=== PATIENT | male | born 1940 | race Caucasian/White ===

== ENCOUNTER 2023-12-01 16:43 | Inpatient (IN) | payer OTHER, SELFPAY ==
[2023-12-01] VITALS (28 sets, daily range): BP systolic 75–136; BP diastolic 44–98; BMI 21.9
[2023-12-01] MEDS: TYLENOL/FEVERALL 650 MG RECTAL (12:46)
--- NOTE | 2023-12-01 12:52 | ED.GENMED ---
History of Present Illness
General
Chief Complaint: Fever
Source: patient
Exam Limitations: none
Time Seen by Provider: 12/01/23 12:38
Nursing documentation reviewed up to this point in time: agreed with
Travel History
Have you had any contact with someone who has COVID-19?: No
Do you have any symptoms of coronavirus? Fever > 100 degrees, chills, cough, shortness of breath, sore throat, loss of taste or smell, muscle aches, or headache?: No
History of Present Illness
History of Present Illness:
Patient with history of dementia, presents to ED from senior care secondary to decreased oxygen level noted by staff after vomiting episode this afternoon. Per paramedics, patient's initial pulse ox was noted to be in 60s with increased heart
rate. Patient does not offer any additional information. Patient does state that he 'feels awful'
Review of Systems
Review of Systems
Unable to obtain full review of systems at this time due to: dementia
All Other Systems: Not applicable
Phy Exam
Physical Exam
Physical Exam:
Physical Exam
General: no apparent distress, not acutely ill. febrile. tachycardic.
Head: nc/at.
Neck: supple. no meningeal signs.
Heart: irregularly irregular, tachycardic, no murmur. equal radial pulses.
Lungs: no acute respiratory distress. clear bilaterally
Abdomen: normal bowel sounds. not tender.
Neuro: alert and awake. no focal neurological deficits
Skin: no rash
Psychiatric: uncooperative
Extremities: no edema. no calf tenderness.
Course
Orders/Labs/Results
Orders:
Orders
12/01/23 12:39
ECG [Electrocardiogram (*1)] Urgent
Reason for Study: Abnormal EKG
EKG- Treatment ONCE
12/01/23 12:45
Acetaminophen [Tylenol/Feverall] 650 mg .ROUTE .STK-MED ONE
12/01/23 12:46
Acetaminophen [Tylenol/Feverall] 650 mg RECTAL NOW STA
12/01/23 12:49
CR Chest Portable - 1 View Urgent
Comment:
Reason For Exam: sob/hypoxia w vomiting
Reason Study Needs to be Portable: Patient Unstable
12/01/23 12:50
0.9% Sodium Chloride 500 ml [Nss] 500 ml IV BOLUS
Ondansetron Injectable [Zofran] 4 mg IV NOW STA
12/01/23 12:51
Diltiazem HCl [Cardizem] 10 mg IV NOW STA
12/01/23 13:00
Diltiazem 125 mg/125 ml Nss [Cardizem] 125 mg in 125 ml IV PER PROTOCOL
Initial dose in mg/hr, then titrate:: 5
Titrate to keep:: Heart rate 80-100 bpm
Titrate by mg/hr:: 5 mg/hr
Frequency of titrations (minutes):: 15
Maximum dose in mg/hr:: 15
12/01/23 13:18
Complete Blood Count/With Diff Urgent
Comprehensive Metabolic Panel Urgent
Lactic Acid Q4H
Comment: CANCEL 2nd LACTIC ACID IF 1st LACTIC ACID IS LESS THAN 2
Lipase Urgent
Magnesium Urgent
Manual Differential Urgent
12/01/23 13:19
COVID-19 Antigen Urgent
Source: Nasal Swab
12/01/23 13:22
Blood Culture Q30M
VI Source: Blood/Venous
Specimen Description:
12/01/23 13:24
Blood Culture Q30M
VI Source: Blood/Venous
Specimen Description:
12/01/23 13:57
ECG [Electrocardiogram (*1)] Urgent
Reason for Study: Abnormal EKG
EKG- Treatment ONCE
12/01/23 14:04
Add On- LAB Urgent
Tests Added?: lipase
US Abdomen Complete/Upper Urgent
Comment:
Reason For Exam: vomiting w abnormal LFTs
12/01/23 14:31
0.9% Sodium Chloride 500 ml [Nss] 500 ml IV BOLUS
12/01/23 14:40
Magnesium Sulfate 1 G/D5w [Magnesium Sulfate] 1 gm in 100 ml IV NOW
12/01/23 14:43
Potassium Chloride [KCl] 40 meq 0.9% Sodium Chloride 250 ml [Nss] 250 ml IV NOW
12/01/23 14:47
Diltiazem HCl [Cardizem] 25 mg .ROUTE .STK-MED ONE
Diltiazem HCl [Cardizem] 5 mg IV NOW STA
Diltiazem HCl [Cardizem] 5 mg IV NOW STA
12/01/23 Dinner
Regular
12/01/23 15:10
Piperacillin/Tazo 3.375 Gram [Zosyn] 3.375 gram in 50 ml IV NOW
12/01/23 15:14
Lidocaine 2% [Lidocaine Uro-Jet 2%] 1 syringe .ROUTE .STK-MED ONE
12/01/23 15:23
Straight cath- Treatment ONCE
12/01/23 15:24
Urinalysis Reflex To Culture Urgent
Date Specimen was Collected: 12/01/23
Time Specimen was Collected: 15:22
Urine Microscopic Reflex Cult Urgent
Urine Culture Urgent
VI Source: U
Specimen Description:
Date Specimen was Collected: 12/01/23
Time Specimen was Collected: 15:22
12/01/23 16:28
Admit/Transfer Patient As Directed
Co-Sign Provider:
Level of Care: Inpatient admission
Assign to:: ICU
Physician / Group: matteo
Diagnosis: sepsis uti, afib rvr
Reason for Hospitalization: sepsis uti, afib rvr
Expected length of stay greater than two midnights?: Yes
ELOS- Estimated Length of Stay in days: 2
I certify the patient meets the requirements for IP care: Yes
12/01/23 16:29
Code Status As Directed
Resuscitation Status: Full Code
12/01/23 16:36
Abdomen/Pelvis w Contrast CT [CT Abd/pelvis W Iv Cont] Urgent
Comment:
Reason For Exam: severe sepsis, abdominal discomfort
12/01/23 17:47
Lactic Acid Q4H
Comment: CANCEL 2nd LACTIC ACID IF 1st LACTIC ACID IS LESS THAN 2
12/01/23 18:23
0.9% Sodium Chloride 1000 ml [Nss] 1,000 ml IV 100 mls/hr
Acetaminophen [Tylenol] 650 mg PO Q6H PRN
Ondansetron Injectable [Zofran] 4 mg IV Q6HPRN PRN
12/01/23 18:23
Activity As Directed
Activity Level: As Tolerated
Vital Signs As Directed
Frequency: Per unit guidelines
DX Deep Vein Thrombosis Video Routine
12/01/23 20:00
Heparin 5,000 units SC Q12
12/01/23 22:00
Piperacillin/Tazo 3.375 Gram [Zosyn] 3.375 gram in 50 ml IV Q6H
12/02/23 06:00
Complete Blood Count/With Diff IN AM
Comprehensive Metabolic Panel IN AM
12/02/23 08:00
Finasteride [Proscar] 5 mg PO DAILY
Sennosides [Senokot] 8.6 mg PO DAILY
12/08/23 08:00
Cholecalciferol (Vitamin D3) [VITAMIN D3 (cholecalciferol)] 125 mcg PO FR
Abnormal Lab Results
12/01/23 12/01/23
13:18 15:24
WBC 27.4 H 10^3/uL
(4.8-10.8)
RBC 3.92 L 10^6/uL
(4.70-6.10)
Hgb 12.2 L g/dL
(13.0-18.0)
Hct 37.6 L %
(39.0-52.0)
MCV 95.9 H fL
(80.0-94.0)
MCH 31.1 H pg
(27.0-31.0)
MCHC 32.4 L g/dL
(33.0-37.0)
Abs Neuts (Manual) 26.8 H 10^3/uL
(1.4-6.5)
Band Neutrophils 23 H %
(0-3)
Lymphocytes (Manual) 1 L %
(20-51)
Potassium 3.3 L mmol/L
(3.5-5.1)
Chloride 111 H mmol/L
(98-107)
Glucose 110 H mg/dl
(70-99)
Lactic Acid 4.0 H* mmol/L
(0.7-2.0)
Magnesium 1.5 L mg/dl
(1.6-2.3)
AST 154 H U/L
(17-59)
ALT 72 H U/L
(0-50)
Alkaline Phosphatase 154 H U/L
(38-126)
Total Protein 5.4 L g/dl
(6.3-8.2)
Albumin 2.6 L g/dl
(3.5-5.0)
Urine Ketones Trace A
(Negative)
Ur Occult Blood Reflex 4+ A
(Negative)
Urine Nitrite (Reflex) Positive A
(Negative)
Urine Bilirubin 1+ A
(Negative)
Leukocyte Esterase Rfl 2+ A
(Negative)
Urine RBC >100 A /HPF
(0-2)
Urine WBC (Reflex) 30-40 A /HPF
(0-5)
Urine Bacteria (Reflex) Many A
(Negative)
Urine Albumin (Reflex) 3+ A
(Neg - Trace)
12/01/23 13:18
12/01/23 13:18
Vital Signs
Initial and Last Documented VS:
Initial Vital Signs
Temp Pulse Resp BP
103.1 F H 182 25 136/98
12/01/23 12:34 12/01/23 12:34 12/01/23 12:34 12/01/23 12:34
Last Documented Vital Signs
Temp Pulse Resp BP Pulse Ox
103.1 F H 53 7 94/59 97
12/01/23 12:34 12/01/23 19:45 12/01/23 19:45 12/01/23 19:30 12/01/23 19:45
MDM/Problems Addressed
Differential Diagnosis Includes:
After IV fluid examination, Tylenol, along with Cardizem infusion, patient's heart rate noted to improve with what appears to be regular rhythm on the monitor. Repeat EKG performed which reveals sinus rhythm with PVCs at 66 bpm.
Due to hypotension, Cardizem infusion discontinued temporarily. Unfortunately, within minutes, patient's heart rate noted to be elevated into 170s again. Patient given additional IV fluid bolus and Cardizem infusion re-
started, with improved heart rate.
Secondary to significant leukocytosis, along with lactate, as well as abnormal LFTs, abdominal ultrasound will be ordered.
Zosyn ordered.
Blood culture pending.
Critical care statement: A total of 40 minutes of critical care time was provided for this patient. This includes management of unstable vital signs, evaluation of the patient at bedside, reviewing the patient's pertinent medical records, review of
old EKGs and review of pertinent medical records. This time with separate from time utilized to perform the aforementioned documented procedures
MDM/Problems Addressed:
Repeat EKG after
*EKG
Interpreted by ED Provider?: Yes
EKG Intrepretation Date: 12/01/23
Heart Rate: 166
Rate: tachycardiac
Rhythm: a-fib
Interval: normal interval
QRS Pattern: normal QRS
*Critical Care Note
Total Time (30-74mins, 75-104mins- exclusive of procedures): 40 min
ED Attending Note
-
Portions of this chart may have been created with voice recognition software.� Occasional wrong word or��sound alike� substitutions may have occurred due to the inherent limitations of voice recognition software.
Discharge Plan
Departure
Patient Disposition: Admit
Date of Disposition: 12/01/23
Time of Disposition: 16:11
Admit to: ICU
Presentation/result/management discussed w/ accepting MD/DO: Hospitalist
Discharge Problem:
Sepsis, Acute UTI, Atrial fibrillation, rapid
Interventions
Interventions:
*General Assessment Last Done: 12/01/23 12:34
*Neglect/Abuse Screening Last Done: 12/01/23 12:34
*Nursing Disposition Last Done: 12/01/23 18:29
ED- Neurological Assessment Last Done: 12/01/23 14:12
ED-Skin Assessment Last Done: 12/01/23 14:12
Discharge Date and Time
Discharge Date/Time: 12/01/23 18:30
[2023-12-01] MEDS: NSS 500 IV ×2 (13:06→14:41)
[2023-12-01] MEDS: ZOFRAN 4 MG IV (13:06)
[2023-12-01] MEDS: CARDIZEM 10 MG IV (13:07)
[2023-12-01] MEDS: CARDIZEM 125 IV (13:10)
--- NOTE | 2023-12-01 13:21 | EDRN ---
2nd line started with 2nd set BC.
[2023-12-01 13:33] LABS: Hematocrit 37.6 % (39.0-52.0); Hemoglobin 12.2 g/dL (13.0-18.0); Mean Corp Hgb Conc. 32.4 g/dL (33.0-37.0); Mean Corpuscular Hgb 31.1 pg (27.0-31.0); Mean Corpuscular Volume 95.9 fL (80.0-94.0); Mean Platelet Volume 10.1 fL (7.4-10.4); Platelet Count 203 10^3/uL (130-400); Red Blood Cell Count 3.92 10^6/uL (4.70-6.10); Red Cell Dist. Width 14.3 % (11.5-14.5); White Blood Cell Count 27.4 10^3/uL (4.8-10.8)
[2023-12-01 13:42] LABS: AST (SGOT) 154 U/L (17-59); Albumin 2.6 g/dl (3.5-5.0); Alkaline Phosphatase 154 U/L (38-126); Blood Urea Nitrogen 17 mg/dl (9-20); Calcium 8.4 mg/dl (8.4-10.2); Carbon Dioxide 24 mmol/L (22-30); Chloride 111 mmol/L (98-107); Estimated Creatinine Clearance 45 ml/min; Glucose 110 mg/dl (70-99); Magnesium 1.5 mg/dl (1.6-2.3); Potassium 3.3 mmol/L (3.5-5.1); Sodium 143 mmol/L (135-145); Total Bilirubin 0.6 mg/dl (0.2-1.3); Total Protein 5.4 g/dl (6.3-8.2); eGFR 59.26
[2023-12-01 13:49] LABS: COVID-19 Antigen Negative (Negative)
[2023-12-01 13:55] LABS: Absolute Neutrophils -Man Diff 26.8 10^3/uL (1.4-6.5); Band Neutrophils 23 % (0-3); Lymphocytes 1 % (20-51); Metamyelocytes 1 % (-); Platelets Checked Yes; Segmented Neutrophils 75 % (42-75)
[2023-12-01 13:56] LABS: Acanthocytes 2+; Anisocytosis 1+; Hypochromasia 1+; Normal RBC Morphology No; Ovalocytes 1+; Polychromasia Slight
[2023-12-01 13:57] LABS: Total Cells Counted 100
[2023-12-01] MEDS: CARDIZEM 5 MG IV (14:48)
[2023-12-01] MEDS: MAGNESIUM SULFATE 100 IV (14:51)
[2023-12-01 15:20] LABS: ALT (SGPT) 72 U/L (0-50); Lipase 73 U/L (23-300)
[2023-12-01] MEDS: KCL 270 MEQ IV (15:26)
[2023-12-01 15:32] LABS: Urine Albumin 3+ (Neg - Trace); Urine Bilirubin 1+ (Negative); Urine Character Very Cloudy (Clear); Urine Color Yellow; Urine Glucose Negative (Negative); Urine Ketone Trace (Negative); Urine Leukocyte 2+ (Negative); Urine Nitrite Positive (Negative); Urine Occult Blood 4+ (Negative); Urine Specific Gravity 1.015 (<1.030); Urine Urobilinogen 1+ (Neg - 1+)
[2023-12-01] MEDS: ZOSYN 50 IV ×2 (15:34→22:32)
[2023-12-01 15:47] LABS: Urine Bacteria Many (Negative); Urine Red Blood Cell >100 /HPF (0-2); Urine White Cell 30-40 /HPF (0-5)
--- NOTE | 2023-12-01 16:33 | HPS.HSE ---
Addendum entered and electronically signed by Dimitri Mitchell MD 12/01/23 18:35:
CT scan shows moderate cervical colitis in the distal sigmoid colon and rectum. There is large left inguinal hernia containing most of the sigmoid colon surrounded by inflammation. Large amount of fecal material in the cecum suggesting
constipation. 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
Continue senna. Add MiraLAX. Milk of molasses enema to be ordered. Bladder scan protocol ordered and Goode catheter if needed per protocol.
Original Note:
Family Physician
-
Family Physician: Gale Loving DO
Chief Complaint
-
vomiting, hypoxia
History of Present Illness
83-year-old male with past medical history of CAD status post stents several years ago, anxiety/depression, BPH, presenting from correction due to decreased oxygen level and episode of vomiting this afternoon. As per paramedics patient's initial
pulse ox was noted to be 60s with increased heart rate. Patient unable to provide much history and denies any complaints but points to his chest when asked about discomfort. He appears to be in discomfort when I palpate his abdomen and when I
attempt to listen to his heart and lungs. Not sure if he has been having any urinary symptoms.
He does not smoke or drink alcohol.
Medical History
Past Medical History
Past Medical History: Reports Other (CAD status post stents several years ago, anxiety/depression, BPH,)
Past Surgical History: Reports None
Social History
Tobacco: Non-smoker
Alcohol: None
Drug: None
Family History
Family History: Not pertinent
Allergies / Home Medications
Allergies reflects when Allergies were last updated in [facility].
Home Medications with original date entered in [facility]
Allergy/Medication List:
Allergies
Allergy/AdvReac Type Severity Reaction Status Date / Time
iodine Allergy Unknown Verified 12/01/23 12:37
Home Medications
acetaminophen 325 mg tablet (Tylenol) 650 mg PO AMHS back pain 12/01/23
acetaminophen 325 mg tablet (Tylenol) 650 mg PO Q6H PRN mild pain/temp>101 12/01/23
atorvastatin 10 mg tablet 10 mg PO DAILY High Cholesterol 12/01/23
bisacodyl 10 mg rectal suppository 10 mg AR DAILY PRN no BM post MOM 12/01/23
cholecalciferol (vitamin D3) 125 mcg (5,000 unit) tablet (Vitamin D3) 125 mcg PO FR Supplement 12/01/23
finasteride 5 mg tablet (Proscar) 5 mg PO DAILY prostate issues 12/01/23
magnesium hydroxide 400 mg/5 mL oral suspension (Milk of Magnesia) 3,200 mg PO HSPRN PRN no BM x 3 days 12/01/23
melatonin 10 mg tablet 10 mg PO HS Sleep 12/01/23
sennosides 8.6 mg tablet (Senokot) 8.6 mg PO DAILY Constipation 12/01/23
sodium phosphates 19 gram-7 gram/118 mL enema (Fleet Enema) 118 ml AR DAILYPRN PRN no BM after suppository 12/01/23
Review of Systems
-
History Source: Patient
A 12 point ROS was completed and negative except as noted: Yes
Constitutional: Reports No Symptoms
EENT: Reports No Symptoms
Respiratory: Reports See HPI
Cardiac: Reports See HPI
Abdomen/GI: Reports See HPI
: Reports No Symptoms
Musculoskeletal: Reports No Symptoms
Skin: Reports No Symptoms
Neurological: Reports No Symptoms
Endocrine: Reports No Symptoms
Hematologic/Lymphatic: Reports No Symptoms
Psych: Reports No Symptoms
Physical Exam
Vital Signs
Vital Signs
Temp Pulse Resp BP Pulse Ox
103.1 F H 65 22 90/65 94
12/01/23 12:34 12/01/23 16:15 12/01/23 16:15 12/01/23 16:15 12/01/23 16:15
Physical Exam
General: Well Developed, Well Nourished and No Apparent Distress
HEENT: NormoCephalic, Moist mucous membranes and Atraumatic
Respiratory: Clear
Cardiac: S1/S2 and Regular Rhythm; No Murmur or Rub
GI: Normal Bowel Sounds and Tender; No Organomegaly
Rectal: Deferred by Provider
Musculoskeletal: No Clubbing, No Cyanosis and No Edema
Skin: No Rash
Neuro: Nonfocal/grossly intact
Laboratory Results
-
12/01/23 13:18
12/01/23 13:18
Laboratory Results
Lactic Acid 4.0 mmol/L (0.7-2.0) H* 12/01/23 13:18
Total Bilirubin 0.6 mg/dl (0.2-1.3) 12/01/23 13:18
AST 154 U/L (17-59) H 12/01/23 13:18
ALT 72 U/L (0-50) H 12/01/23 13:18
Alkaline Phosphatase 154 U/L (38-126) H 12/01/23 13:18
Lipase 73 U/L (23-300) 12/01/23 13:18
Data Reviewed
-
Lab Data: Labs Reviewed by me
Old Records: Reviewed
Impression/Plan
-
IMPRESSION:
PLAN:
# Sepsis (fever, leukocytosis, tachycardia, tachypnea, initial hypotension) secondary to urinary tract infection
-Blood pressure improved
-UA indicative of infection
-Chest x-ray unremarkable
-Check urine culture, blood cultures
-Check CT abdomen pelvis given upper abdominal discomfort
-IV fluids
-Continue Zosyn
-Trend lactate
# New onset atrial fibrillation with RVR
-Initial heart rate 160s
-Now appears to be in sinus rhythm
-IV fluids
-Cardizem drip
-Cardiology consulted
# Transaminitis likely secondary to sepsis/hypotension
-Abdominal ultrasound unremarkable
-Continue to monitor
-Hold statin
# Hypokalemia
# Hypomagnesemia
-Replete magnesium, potassium
Coronary artery disease with distant history of stents
BPH
-Continue finasteride
Constipation history
-Continue senna
Anxiety/depression
Full code
DVT prophylaxis�heparin
Regular diet
[2023-12-01 18:32] LABS: Lactic Acid 3.8 mmol/L (0.7-2.0)
[2023-12-01] MEDS: NSS 1000 IV (19:00)
--- NOTE | 2023-12-01 19:03 | PTCARENOTE ---
Pt admitted to ICU from ED. Cardizem off due to HR <60. unable to obtain a BP at this time due to pt agitation/flexed position. NSS started. Son and DIL to bedside. Pt confused to time, place, and situation, and pleading for RNs to 'stop, this is
terrible.' Unable to state if pt is in pain. Red, nonblanchable sacrum/coccyx noted, foam applied. Report given to night RN.
--- NOTE | 2023-12-01 20:20 | PTCARENOTE ---
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 RA Sat 96%. family at bedside, POC discussed. bed alarm on.
[2023-12-01] MEDS: HEPARIN SC (22:44)
--- NOTE | 2023-12-01 22:44 | PTCARENOTE ---
unable to obtain lactate level, pt combative, hitting; KFlahertyNP aware- will obtain lactate with am labs.
[2023-12-02] VITALS (19 sets, daily range): BP systolic 101–174; BP diastolic 54–99; BMI 22.4
--- NOTE | 2023-12-02 | PTCARENOTE ---
pt disoriented, uncooperative, combative with care. no changes in assessment.
--- NOTE | 2023-12-02 04:30 | PTCARENOTE ---
Reassessed, pt fearful/agitated with care, able to redirect, +inc lg amt iram urine, condom cath #30 placed. no changes in assessment.
[2023-12-02] MEDS: NSS 1000 IV (04:53)
[2023-12-02] MEDS: ZOSYN 50 IV (05:00)
[2023-12-02 05:12] LABS: Hematocrit 34.4 % (39.0-52.0); Hemoglobin 11.6 g/dL (13.0-18.0); Mean Corp Hgb Conc. 33.7 g/dL (33.0-37.0); Mean Corpuscular Hgb 31.4 pg (27.0-31.0); Mean Corpuscular Volume 93.2 fL (80.0-94.0); Mean Platelet Volume 9.6 fL (7.4-10.4); Nucleated Red Blood Cells % 0 % (-); Platelet Count 171 10^3/uL (130-400); Red Blood Cell Count 3.69 10^6/uL (4.70-6.10); Red Cell Dist. Width 14.8 % (11.5-14.5)
[2023-12-02 05:21] LABS: White Blood Cell Count 45.8 10^3/uL (4.8-10.8)
[2023-12-02 05:34] LABS: Lactic Acid 3.8 mmol/L (0.7-2.0)
[2023-12-02 05:36] LABS: ALT (SGPT) 54 U/L (0-50); AST (SGOT) 73 U/L (17-59); Albumin 2.5 g/dl (3.5-5.0); Alkaline Phosphatase 112 U/L (38-126); Blood Urea Nitrogen 25 mg/dl (9-20); Carbon Dioxide 22 mmol/L (22-30); Chloride 113 mmol/L (98-107); Estimated Creatinine Clearance 40 ml/min; Glucose 92 mg/dl (70-99); Magnesium 1.8 mg/dl (1.6-2.3); Sodium 142 mmol/L (135-145); Total Bilirubin 0.5 mg/dl (0.2-1.3); Total Protein 5.3 g/dl (6.3-8.2); eGFR 49.25
--- NOTE | 2023-12-02 07:50 | CON.CAR ---
Addendum entered and electronically signed by Kevin Ndiaye MD 12/02/23 09:08:
I saw and examined the patient.
The Strap Cutter's note was reviewed and I agree with the note.
Comment:
GEN: Anxious confused
HEENT: supple, anicteric, mmm
LUNGS: CTA, no wheezes/rales
CV: Reg, S1/S2, 1/6 syst LSB, no gallop
ABD: soft, BS dec, + tend
EXT: No edema
NEURO: Gross non-focal
SKIN: No rash
Plan:
He has a past medical history of coronary disease, hyperlipidemia, anxiety, and likely BPH. He presents to [facility] [address] with new onset rapid atrial fibrillation and colitis/UTI/sepsis. He spontaneously converted back into sinus rhythm after
being started on a Cardizem drip. He currently is in sinus rhythm however he is confused.
[id number] score is 3.
Continue antibiotics for UTI/colitis.
Check echocardiogram and TSH.
Will start low-dose Toprol 12.5 mg daily.
Discussions with son and he is agreeable to start Eliquis. I would hold off on starting this for now until decision has been made about the treatment for his hernia. Will consider starting over the next 24 to 48 hours pending his hospital course
Original Note:
Consultation
Consultation Request
Date/Time Consultation Requested: 12/02/2023
Date/Time Consultation Performed: 12/02/2023
Requesting Provider: Dr. Mitchell
Performing Provider: Dr. Ndiaye
Reason for Consultation: Afib w/ RVR
Medical History
-
History of Present Illness:
HPI: Chapito is an 83-year-old male with past medical history of CAD with prior stenting, hyperlipidemia, BPH, and anxiety. He presented to ER for evaluation from a halfway due to decreased oxygen level and episode of vomiting. In ER,
initial EKG showed he was in rapid atrial fibrillation with heart rate in the 160s. He was also found to have elevated white blood count with evidence sepsis due to UTI. He also had abdominal pain and CT scan showed large left inguinal hernia with
surrounding inflammation as well as stercoral colitis. He was started on IV antibiotics and admitted for further evaluation and management. For his rapid atrial fibrillation, this appears to be a new diagnosis and he was initiated on a Cardizem
drip. He spontaneously converted to sinus rhythm and subsequently Cardizem drip was stopped as his heart rate was in the 50s. He remains in sinus rhythm this morning. He denies any complaints, however history is difficult to elicit given
underlying dementia.
PMH:
CAD w/ prior remote stenting
Anxiety/depression
HLD
BPH
Past Medical History
Past Medical History: Other (In HPI)
Social History
Tobacco: Non-Smoker
Alcohol: None
Drug: None
Living: [facility]
Employment: Retired
Family History
Family History: Reviewed & Not Pertinent
Allergies / Home Medications
Allergy/AdvReac Type Severity Reaction Status Date / Time
iodine Allergy Unknown Verified 12/01/23 12:37
�Medication �Instructions �Recorded �Confirmed �Type
acetaminophen 325 mg tablet 650 mg PO AMHS back pain 12/01/23 12/01/23 History
(Tylenol)
acetaminophen 325 mg tablet 650 mg PO Q6H PRN mild 12/01/23 12/01/23 History
(Tylenol) pain/temp>101
atorvastatin 10 mg tablet 10 mg PO DAILY High Cholesterol 12/01/23 12/01/23 History
bisacodyl 10 mg rectal suppository 10 mg ID DAILY PRN no BM post MOM 12/01/23 12/01/23 History
cholecalciferol (vitamin D3) 125 125 mcg PO FR Supplement 12/01/23 12/01/23 History
mcg (5,000 unit) tablet (Vitamin
D3)
finasteride 5 mg tablet (Proscar) 5 mg PO DAILY prostate issues 12/01/23 12/01/23 History
magnesium hydroxide 400 mg/5 mL 3,200 mg PO HSPRN PRN no BM x 3 12/01/23 12/01/23 History
oral suspension (Milk of Magnesia) days
melatonin 10 mg tablet 10 mg PO HS Sleep 12/01/23 12/01/23 History
sennosides 8.6 mg tablet (Senokot) 8.6 mg PO DAILY Constipation 12/01/23 12/01/23 History
sodium phosphates 19 gram-7 118 ml ID DAILYPRN PRN no BM after 12/01/23 12/01/23 History
gram/118 mL enema (Fleet Enema) suppository
Review of Systems
-
Unable to obtain full review of systems at this time due to: Dementia
History Source: Patient
All other systems: Negative unless noted
Physical Exam
Vital Signs
Temp Pulse Resp BP Pulse Ox
97.5 F 55 17 128/64 97
12/02/23 07:32 12/02/23 06:30 12/02/23 06:30 12/02/23 06:00 12/02/23 07:20
Lab Results
12/02/23 05:02
12/02/23 05:02
Physical Exam
General: Well Developed, Well Nourished and No Apparent Distress
HEENT: Normocephalic, Anicteric and Moist Mucous Membranes
Respiratory: Clear and Non Labored Respirations
Cardiac: S1/S2 and Regular Rhythm
Musculoskeletal: No Clubbing, No Cyanosis and No Edema
Skin: Warm and Dry
Neuro: Awake, Alert and Nonfocal/Grossly Intact
Psych: Calm
Impression / Plan
-
PCP: Dr. Gale Loving
Barrel Rifler Button: None
Impression:
Sepsis due to UTI
Colitis
Paroxysmal atrial fibrillation - newly diagnosed
Hypokalemia
Hypomagnesemia
CAD w/ prior remote stenting (?[facility])
Anxiety/depression
HLD
BPH
Plan:
-Patient presented to from halfway due to episode of vomiting. Being treated for sepsis due to UTI. Continue abx per primary service.
-Noted to be in rapid atrial fibrillation on arrival with HR in 160s. Afib is new diagnosis for patient.
-Started on cardizem gtt in ER and spontaneously converted to SR. Remains in SR this AM on review of telemetry.
-HR in SR in the 50s, not on any rate control medications currently. Will follow HR today and consider starting low dose Toprol XL for rate control.
-[id number] score 3 (age, CAD). Discussed anticoagulation with patient's son, Charli. Charli states he would be agreeable to start patient on anticoagulation. He understands the risk of bleeding.
-He does note the patient has a history of falls recently, however he states he feels he would rather accept the risk of bleeding than the risk of stroke. If patient continues to have falls, would strongly consider stopping anticoagulation.
-Will have case management assess the cost of Eliquis 5mg BID and start this admission
-K 3.3 on arrival with mag 1.5. Both repleted and improved this a.m. with K now 5.0 and mag 1.8.
-Consider checking echo this admission.
-Check TSH
-Called and spoke with patient's son, Charli, on the phone for 11:15. Discussed diagnosis of afib, workup, and plan at this time. He prefers to start anticoagulation at this time. He will be in later today to see patient.
HPI: Chapito is an 83-year-old male with past medical history of CAD with prior stenting, hyperlipidemia, BPH, and anxiety. He presented to ER for evaluation from a halfway due to decreased oxygen level and episode of vomiting. In ER,
initial EKG showed he was in rapid atrial fibrillation with heart rate in the 160s. He was also found to have elevated white blood count with evidence sepsis due to UTI. He also had abdominal pain and CT scan showed large left inguinal hernia with
surrounding inflammation as well as stercoral colitis. He was started on IV antibiotics and admitted for further evaluation and management. For his rapid atrial fibrillation, this appears to be a new diagnosis and he was initiated on a Cardizem
drip. He spontaneously converted to sinus rhythm and subsequently Cardizem drip was stopped as his heart rate was in the 50s. He remains in sinus rhythm this morning. He denies any complaints, however history is difficult to elicit given
underlying dementia.
Data Reviewed
-
EKG: Tracing Personally Visualized and interpreted
Radiology: Report Reviewed by me
CT Scan: Report Reviewed by me
Ultrasound: Report Reviewed by me
Labs: Labs Reviewed by me
--- NOTE | 2023-12-02 08:06 | W.PN.HOSP.TC ---
Today's Communication/Plan
-
N.p.o.
General surgery consult
Continue antibiotics
Bowel regimen
Assessment / Plan
Assessment / Plan
Gen-awake, alert, anxious
HEENT-NC, AT, anicteric, clear oral mm
Neck-supple
CV-reg, no M, +S1/S2
Lungs-clear B/L
Abd-soft, NT, ND
Ext-no edema
Musculoskeletal-no cyanosis, clubbing
Skin-warm and dry
Neuro-grossly non-focal
Psych-calm, cooperative
Acute hypoxic respiratory insufficiency -possibly due to aspiration pneumonitis. Chest x-ray clear. Apparently he became hypoxic after he vomited. Oxygen saturation normal currently on room air. Monitor closely.
Septic shock -differential diagnosis includes UTI versus colitis versus other causes. Shock resolved. Blood pressure improved. Significant leukocytosis noted.
Chest x-ray with no acute pulmonary process. Abdominal ultrasound showed prior cholecystectomy, no biliary tract dilation. Simple appearing 6 cm right renal cyst.
CT scan shows 1.3 cm urinary bladder calculus. 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 Large amount of fecal material in the cecum. Large left inguinal hernia containing most of the sigmoid colon
surrounded by inflammation. Moderate intrahepatic biliary dilation.
Consult general surgery given large inguinal hernia and presentation with sepsis, lactic acidosis.
Currently on empiric IV Zosyn. Blood cultures preliminary show gram-negative bacilli.
Stercoral colitis/significant constipation -continue aggressive bowel regimen.
Hypokalemia -resolved.
Hypomagnesemia -resolved.
Elevated LFTs -ischemic hepatitis versus other causes. Hold atorvastatin.
LEE ANN -creatinine rising unfortunately, 1.4. Suspect due to sepsis, hypotension, ATN. Bladder scan showed only 58 cc.
New onset atrial fibrillation/RVR -cardiology consulted. Spontaneously converted to sinus rhythm 11/30, shortly after admission. Briefly required Cardizem drip, now discontinued.
CAD
Hyperlipidemia
BPH
Anxiety/depression
Dementia -likely Alzheimer's type.
Full code
Anticipated Discharge: > 48 hours
Subjective/Interval History
-
Date of Service: December 02, 2023
Patient seen and examined. Very anxious, scared. Denies abdominal pain.
Objective Data
-
Labs:
Laboratory Results
12/02/23
05:02
WBC 45.8 H*
Hgb 11.6 L
Hct 34.4 L
Plt Count 171
Sodium 142
Potassium 5.0 D
Chloride 113 H
Carbon Dioxide 22
BUN 25 H
Creatinine 1.4 H
Glucose 92
Calcium 8.0 L
Total Bilirubin 0.5
AST 73 H
ALT 54 H
Alkaline Phosphatase 112
Vital Signs:
Vital Signs
Temp Pulse Resp BP Pulse Ox
97.5 F 55 17 128/64 97
12/02/23 07:32 12/02/23 06:30 12/02/23 06:30 12/02/23 06:00 12/02/23 07:20
I&O
12/01/23 12/02/23 12/03/23
06:59 06:59 06:59
Intake Total 1300 / 1400 100 / 100
Balance 1300 / 1400 100 / 100
Review of Systems
-
Unable to obtain full review of systems at this time due to: Dementia
History Source: Patient
All other systems: Reviewed and negative
[2023-12-02 08:19] LABS: Absolute Neutrophils -Man Diff 42.5 10^3/uL (1.4-6.5); Band Neutrophils 18 % (0-3); Lymphocytes 3 % (20-51); Metamyelocytes 2 % (-); Monocytes 2 % (2-9); Segmented Neutrophils 75 % (42-75)
[2023-12-02] MEDS: TYLENOL 650 MG PO (08:19)
[2023-12-02] MEDS: HEPARIN 5000 UNITS SC (08:19)
[2023-12-02] MEDS: SENOKOT 8.59999999999999964 MG PO (08:19)
[2023-12-02] MEDS: MIRALAX 17 GRAMS PO (08:19)
[2023-12-02] MEDS: PROSCAR 5 MG PO (08:19)
[2023-12-02 08:20] LABS: Acanthocytes 1+; Anisocytosis Slight; Normal RBC Morphology No; Ovalocytes Slight; Platelets Checked Yes
[2023-12-02 08:21] LABS: Total Cells Counted 100
--- NOTE | 2023-12-02 09:11 | CON.ID ---
Consultation
-
Date/Time Consultation Requested: 12/02/2023 08:26
Date/Time Consultation Performed: 12/02/2023 08:52
Requesting Provider: Dr. Claudio
Performing Provider: Dr. Galvez
Reason for Consultation: Clinical sepsis; stercoral colitis
Chief Complaint / Past History
History of Present Illness
Chapito Espinoza is an 83-year-old man being evaluated at the request of Dr. Claudio in regards to clinical sepsis. History is obtained from chart review, along with patient interview.
The patient presented to the emergency room at [facility] on 12/01/2023 from a local long-term secondary to reported hypoxemia and an episode of vomiting earlier in the day. When paramedics arrived they found his pulse ox to be in the 60s
with tachycardia. Workup in the emergency room revealed a leukocytosis of 27,000 and an elevated lactate of 4.0. Imaging of the abdomen revealed stercoral colitis in the distal sigmoid and rectum. Also noted was a large left inguinal hernia. The
patient was started on empiric antibiotics. Blood cultures are now found to be positive for gram-negative rods. Infectious Diseases is asked to comment on further antimicrobial therapy.
No further history nor review of systems possible from the patient.
Past History
Additional Past Medical History:
CAD
Anxiety/depression
BPH
Past Surgical History: None
Allergy History:
iodine Allergy (Verified 12/01/23 12:37)
Unknown
Medications Reviewed: Yes
Current Antibiotics:
Zosyn 3.375 g IV every 6 hours
Social History
Tobacco: Non-Smoker
Alcohol: None
Drug: None
Living: [facility]
Employment: Retired
Family History
Family History: Not Pertinent
Review of Systems
Vital Signs
Temp Pulse Resp BP Pulse Ox
97.5 F 55 17 128/64 97
12/02/23 07:32 12/02/23 06:30 12/02/23 06:30 12/02/23 06:00 12/02/23 07:20
Physical Exam
Physical Exam
Constitutional: Acutely Ill and Toxic
Head: Normocephalic
Eyes: Pupils Equal, Pupils Round, No Conjunctival Hemorrhage and Sclera Anicteric
Oral: No Thrush and No Ulcers
Cardiovascular: Regular Rate and S1/S2; Negative S3/S4
Pulmonary: Clear; Negative Wheezes, Rales or Rhonchi
Gastrointestinal: Soft, Non Tender, Non Distended, Normal Bowel Sounds, No Rebound and No Guarding
Genito-Urinary: Other (full scrotum left)
Extremities: Edema (trace); Negative Cyanosis or Erythema
Skin: Warm and Dry; Negative Rash or Jaundice
Neurological: Awake and Alert
Psychological: Calm
Lab / Diagnostic Study Results
12/02/23 05:02
12/02/23 05:02
Total Counted 100 12/02/23 05:02
Abs Neuts (Manual) 42.5 10^3/uL (1.4-6.5) H 12/02/23 05:02
Segmented Neutrophils 75 % (42-75) 12/02/23 05:02
Band Neutrophils 18 % (0-3) H D 12/02/23 05:02
Lymphocytes (Manual) 3 % (20-51) L 12/02/23 05:02
Lactic Acid 3.8 mmol/L (0.7-2.0) H 12/02/23 04:59
Microbiology Results
Micro:
12/01/23 13:22 Blood Culture - Preliminary
Blood/Venous Positive culture in progress
Gram Stain - Preliminary
12/02/23 05:04 MRSA Screen - Pending
Nose
12/01/23 15:24 Urine Culture - Pending
Urine
12/01/23 13:24 Blood Culture - Pending
Blood/Venous
Imaging:
12/01/2023 CT abdomen/pelvis with IV contrast: Moderate stercoral colitis in the distal sigmoid colon and rectum noted. Large left inguinal hernia containing most of the sigmoid colon with surrounding inflammation. A large amount of fecal material
in the cecum suggesting constipation. No CT evidence for colonic obstruction, ascites or pneumoperitoneum. A severely enlarged prostate gland causing chronic urinary bladder outlet obstruction is noted. Please see full dictation for additional
detail. Film personally viewed.
Assessment / Plan
Marked leukocytosis
Gram-negative rafat bacteremia
Clinical sepsis
Fever
Stercoral colitis
Lactic acidosis
LEE ANN
Transaminitis
Hx CAD
Anxiety/depression
BPH
Recommendations:
Continue antibiotic coverage, although given that the patient presents from a nursing facility will change to meropenem.
Repeat blood cultures to assess for ongoing bacteremia.
Await further identification of current positive blood cultures.
Monitor white count and temperature curve.
Monitor creatinine and estimated creatinine clearance closely for further antibiotic dosing adjustments.
Patient critically ill and in intensive care unit.
Care Review
Plan reviewed with: Physician (General Surgery)
[2023-12-02 09:35] LABS: TSH Reflex To Free T4 1.06 uIU/ml (0.47-4.68)
--- NOTE | 2023-12-02 09:41 | PTCARENOTE ---
Went in this am to find pt anxious and scared, attempted to calm and explain plan of care, but pt not retaining. Pt did take medicine. Milk and molasses enema given, but pt unable to retain so minimal results noted.
[2023-12-02] MEDS: 0.45%NACL 1000 IV ×2 (10:28→23:25)
[2023-12-02] MEDS: STERILE WATER FOR INJECTION 10 ML IV ×2 (10:30→15:49)
[2023-12-02] MEDS: MERREM 500 MG IV ×2 (10:30→15:50)
[2023-12-02] MEDS: TOPROL XL 12.5 MG PO (10:32)
--- NOTE | 2023-12-02 10:40 | PTCARENOTE ---
pt stuck multiple times for repeat blood cultures prior to initiating meropenem, extremely anxious but cooperative. bladder scan for 49ml. ivf changed as ordered.
--- NOTE | 2023-12-02 11:34 | CON.INTV ---
Consultation
Consultation Request
Date/Time Consultation Requested: 12/02/2023
Date/Time Consultation Performed: 12/02/2023
Requesting Provider: Dr. Mitchell
Performing Provider: Dr. Jj Ellison
Reason for Consultation: Septic shock
Medical History
-
History of Present Illness:
83-year-old man with past medical history significant for coronary artery disease status post stents in the past, anxiety/depression, BPH, presented from the care home with hypoxemia and an episode of vomiting prior to admission.
Apparently initial pulse oximetry at the care home was 60% with tachycardia.
Patient is a poor historian unable to provide detailed history.
Currently the critical care unit. Not hypoxemic.
Not hypotensive. Did not require vasopressors.
Cardizem drip has been discontinued.
Patient had a small bowel movement.
Past Medical History
Past Medical History: Other (See assessment and plan section)
Social History
Tobacco: Non-smoker
Alcohol: None
Drug: None
Living: [facility]
Family History
Family History: Reviewed & Not Pertinent and Unable to Obtain
Allergies / Home Medications
Allergies
Allergy/AdvReac Type Severity Reaction Status Date / Time
iodine Allergy Unknown Verified 12/01/23 12:37
Home Medications
�Medication �Instructions �Recorded �Confirmed �Last Taken �Type
acetaminophen 325 mg tablet 650 mg PO AMHS back pain 12/01/23 12/01/23 Unknown History
(Tylenol)
acetaminophen 325 mg tablet 650 mg PO Q6H PRN mild 12/01/23 12/01/23 Unknown History
(Tylenol) pain/temp>101
atorvastatin 10 mg tablet 10 mg PO DAILY High Cholesterol 12/01/23 12/01/23 Unknown History
bisacodyl 10 mg rectal suppository 10 mg SC DAILY PRN no BM post MOM 12/01/23 12/01/23 Unknown History
cholecalciferol (vitamin D3) 125 125 mcg PO FR Supplement 12/01/23 12/01/23 Unknown History
mcg (5,000 unit) tablet (Vitamin
D3)
finasteride 5 mg tablet (Proscar) 5 mg PO DAILY prostate issues 12/01/23 12/01/23 Unknown History
magnesium hydroxide 400 mg/5 mL 3,200 mg PO HSPRN PRN no BM x 3 12/01/23 12/01/23 Unknown History
oral suspension (Milk of Magnesia) days
melatonin 10 mg tablet 10 mg PO HS Sleep 12/01/23 12/01/23 Unknown History
sennosides 8.6 mg tablet (Senokot) 8.6 mg PO DAILY Constipation 12/01/23 12/01/23 Unknown History
sodium phosphates 19 gram-7 118 ml SC DAILYPRN PRN no BM after 12/01/23 12/01/23 Unknown History
gram/118 mL enema (Fleet Enema) suppository
Review of Systems
-
Unable to Obtain full review of systems at this time due to: Dementia and Acuity
Vitals / Labs / Diagnostic Testing
Vital Signs
Temp Pulse Resp BP Pulse Ox
97.5 F 61 20 127/81 97
12/02/23 07:32 12/02/23 10:10 12/02/23 10:10 12/02/23 10:10 12/02/23 07:20
Lab Data
12/02/23 05:02
12/02/23 05:02
Microbiology
12/01/23 13:22 Blood/Venous Blood Culture - Preliminary
Proteus species
12/01/23 13:22 Blood/Venous Gram Stain - Preliminary
Diagnostic Testing:
Physical Exam
-
HEENT: Normocephalic
Cardiovascular: S1/S2
Respiratory: Clear and Non-Labored Respirations
GI: Soft and Non Distended
Neurology: Awake, Alert and Oriented
General: Respiratory Distress (n)
Assessment
-
83-year-old man admitted with hypoxemia, hypotension, vomiting. Found to have UTI and a stercoral colitis. Given hypotension he was transferred to the critical care unit for possible vasopressor requirement.
Severe sepsis: Likely from UTI/stercoral colitis/bacteremia with Proteus species
Chest x-ray: No acute infiltrate
CT abdomen pelvis: Moderate stercoral colitis in the distal sigmoid colon and rectum. Large left inguinal hernia surrounded by inflammation. Constipation. No intraperitoneal air. No bowel obstruction or ascites. Chronic urinary bladder outlet
obstruction from BPH. 1.3 cm urinary bladder calculus. Moderate intrahepatic biliary dilatation. Previous cholecystectomy. Cardiomegaly.
Leukocytosis/increased lactic acid/fever
Acute kidney injury possibly due to sepsis/volume depletion
Transaminitis mild.
Abdominal ultrasound: No findings to suggest intrahepatic biliary tract dilatation. Mildly enlarged common bile duct postcholecystectomy.
Rapid atrial fibrillation toxic metabolic encephalopathy secondary to above-converted back to b sinus rhythm
Conditions present prior admission:
BPH
Constipation
Anxiety/depression
Coronary artery disease with prior stents
Assessment and plan:
Marked leukocytosis/leukemoid reaction likely from infection.
Fever curve improved
Not requiring vasopressors since admitted to the ICU.
Gram-negative rafat bacteremia: Possibly urinary source versus bowel translocation due to stercoral colitis.
-
Status post IV fluid resuscitation
Continue low rate hydration with IV fluids
Continue to monitor for renal function
Trend lactic acid
-
Continue antibiotics per infectious disease
Follow cultures
-
Bowel regimen per primary team
-
Toxic metabolic encephalopathy: Likely on dementia.
Fall precautions
Restraints as needed
May need antipsychotics if worsens
-
On room air since transfer from the ICU.
Pulse ox is 97%
Clear lung exam
No infiltrates on chest x-ray
-
Atrial fibrillation on admission: Currently in sinus rhythm.
Cardiology following
On low-dose beta-anup
Hemodynamically stable
-
Aspiration precaution
N.p.o. for now
Gentle hydration
Hopefully can advance diet later today
-
DVT prophylaxis with heparin subcu
-
There is no critical care needs at this point. Will transfer to telemetry given atrial fibrillation on admission.
--- NOTE | 2023-12-02 11:59 | PTCARENOTE ---
Daughter Piedad was called and given an update. Pt pulled off condom cath and was incontinent of bowel and bladder. Large soft brown stool. Pilar care completed, new condom cath applied. Diaper applied to attempt to keep pt from playing in soil.
Otherwise no changes.
--- NOTE | 2023-12-02 12:11 | CON.GS ---
Addendum entered and electronically signed by Clayton Velazquez MD 12/02/23 12:59:
Patient seen and examined. Agree with assessment plan as documented below.
Patient is a 83 yo M with a PMH of dementia, HTN, HLD, CAD s/p PCI with stent, and BPH. Severe dementia complicates clinical history and exam. He presents to the ER in transfer from his intermediate. Both during physical exam and CT scan
imaging during the course of an infectious workup for marked leukocytosis, he was noted to have a large inguinoscrotal hernia containing colon. No clear history of nausea or vomiting. No clear history of RIGHT groin pain. Large nonbloody bowel
movement since admission to the hospital.
Gen: NAD
Abd: Limited based on patient compliance, large inguinal scrotal hernia, soft, no overlying skin changes or skin breakdown, unable to completely reduce due to patient compliance
Patient is an 83 yo M p/w sepsis
At this point in time, most likely cause of sepsis is urinary in origin based on positive UA and blood cultures notable for Proteus. Inguinal scrotal hernias chronic and has likely been present for years. No radiographic or clinical evidence of
obstruction. No evidence of pneumatosis or free air. No plans or indication for urgent surgical repair. Recommend aggressive bowel regimen. Define goals of care. Please call with any questions or concerns.
-- No plans or indication for surgical intervention
-- Define goals of care
-- Aggressive bowel regimen
-- ADAT
-- Call with any questions or concerns
Original Note:
Consultation
-
Date/Time Consultation Requested: 12/02/23811
Requesting Provider: González
Reason for Consultation: hernia
Medical History
-
Chief Complaint: pain
History of Present Illness:
Mr. Agrawal is an 83 yo male with a history of dementia which significantly limits history and exam who presents from SNF with hypoxia and vomiting. He is undergoing infectious work up in ICU for marked leukocytosis and is seen today in exam for
evaluation of a large inguinal hernia and abnormal CT findings of the abdomen/pelvis. He has had multiple laxatives with m&m enema and has been able to pass a large BM. He denies nausea and vomiting and was eating yogurt at time of exam. Large left
inguinal hernia noted, soft but not able to reduce d/t patient compliance with exam. He is anxious and does not wish to be examined, calling out when touched. Scrotum without significant erythema. Abdomen is soft and minimally distended.
Past Medical History
Past Medical History: CAD (stents), Hypercholesterolemia and Other (BPH, anxiety/depression)
Past Surgical History: None (unknown)
Social History
Tobacco: Non-Smoker
Alcohol: None
Family History
Family History: Unable to Obtain
Allergies / Home Medications
Allergy/AdvReac Type Severity Reaction Status Date / Time
iodine Allergy Unknown Verified 12/01/23 12:37
�Medication �Instructions �Recorded �Confirmed �Type
acetaminophen 325 mg tablet 650 mg PO AMHS back pain 12/01/23 12/01/23 History
(Tylenol)
acetaminophen 325 mg tablet 650 mg PO Q6H PRN mild 12/01/23 12/01/23 History
(Tylenol) pain/temp>101
atorvastatin 10 mg tablet 10 mg PO DAILY High Cholesterol 12/01/23 12/01/23 History
bisacodyl 10 mg rectal suppository [address] DAILY PRN no BM post MOM 12/01/23 12/01/23 History
cholecalciferol (vitamin D3) 125 125 mcg PO FR Supplement 12/01/23 12/01/23 History
mcg (5,000 unit) tablet (Vitamin
D3)
finasteride 5 mg tablet (Proscar) 5 mg PO DAILY prostate issues 12/01/23 12/01/23 History
magnesium hydroxide 400 mg/5 mL 3,200 mg PO HSPRN PRN no BM x 3 12/01/23 12/01/23 History
oral suspension (Milk of Magnesia) days
melatonin 10 mg tablet 10 mg PO HS Sleep 12/01/23 12/01/23 History
sennosides 8.6 mg tablet (Senokot) 8.6 mg PO DAILY Constipation 12/01/23 12/01/23 History
sodium phosphates 19 gram-[address] DAILYPRN PRN no BM after 12/01/23 12/01/23 History
gram/118 mL enema (Fleet Enema) suppository
Review of Systems
-
Unable to obtain full review of systems at this time due to: Dementia
History Source: Patient, Family, Assisted and Ambulance Crew
A 10 point review of systems was completed, and was negative except as per HPI.
Physical Exam
Vital Signs
Temp Pulse Resp BP Pulse Ox
97.9 F 61 20 127/81 97
12/02/23 11:48 12/02/23 10:10 12/02/23 10:10 12/02/23 10:10 12/02/23 07:20
12/01/23 12/02/23 12/03/23
06:59 06:59 06:59
Actual Weight 72.9 kg
Body Mass Index (BMI) 22.4
Lab Results
12/02/23 05:02
12/02/23 05:02
WBC 45.8 10^3/uL (4.8-10.8) H* 12/02/23 05:02
Hgb 11.6 g/dL (13.0-18.0) L 12/02/23 05:02
Hct 34.4 % (39.0-52.0) L 12/02/23 05:02
Plt Count 171 10^3/uL (130-400) 12/02/23 05:02
Physical Exam
General: Well Developed and Other (anxious, unkempt)
HEENT: Normocephalic
Respiratory: Non Labored Respirations
GI: Soft, Non Tender and Distended (mildly)
Genito-urinary: Inguinal Hernia (large left inguinal hernia into the scrotal sac, discomfort with palpation but soft. Exam limited d/t noncompliance of patient) and Other
Skin: Warm and Dry
Neuro: Awake and Alert; Negative AO x 3
Psych: Other (anxious)
Data Reviewed
-
CT Scan: Image Personally Visualized and interpreted, Report Reviewed by me, Discussed with Physician, Discussed with Nurse and Discussed with Patient
Labs: Labs Reviewed by me, Discussed with Physician, Discussed with Nurse and Discussed with Patient
Old Records: Reviewed
Assessment / Plan
-
83 yo male with a history of dementia which significantly limits history and exam who presents from SNF with hypoxia and vomiting. He is undergoing infectious work up in ICU for hypoxia and marked leukocytosis with bacteremia (+proteus) and is seen
today in exam for evaluation of a large inguinal hernia and abnormal CT findings of the abdomen/pelvis of ?stercoral colitis vs severe constipation. Suspect chronically incarcerated hernia without strangulation. UA +, +BM with bowel regimen. Febrile
on arrival but currently afebrile.
No plans for operative intervention at this time
--Ok to continue diet
--Continue bowel regimen
--Medical management as per primary team
--ABX as per ID
--- NOTE | 2023-12-02 14:30 | PTCARENOTE ---
Pt taken to new room, Ramon nurse who was given telephone report at bedside upon arrival. Aware that condom cath came off prior to transfer. Depends in place. Daughter Piedad made aware of transfer.
[2023-12-02] MEDS: HEPARIN SC (20:13)
[2023-12-03] VITALS (7 sets, daily range): BP systolic 117–170; BP diastolic 65–113
[2023-12-03] MEDS: MERREM 500 MG IV ×4 (01:24→23:05)
[2023-12-03] MEDS: STERILE WATER FOR INJECTION 10 ML IV ×4 (01:24→23:05)
[2023-12-03 07:56] LABS: % Basophils 0.2 % (0-2); % Eosinophils 0.1 % (0-6); % Immature Granulocytes 4.2 % (0-0.5); % Lymphocytes 2.4 % (20.5-51.1); % Monocytes 2.9 % (1.7-9.3); % Neutrophils 90.2 % (42.2-75.2); Absolute Basophils 0.1 10^3/uL (0-0.2); Absolute Immature Granulocytes 1.4 10^3/uL (0-0.05); Absolute Lymphocytes 0.8 10^3/uL (1.2-3.4); Absolute Neutrophils 29.2 10^3/uL (1.4-6.5); Hematocrit 31.8 % (39.0-52.0); Hemoglobin 10.7 g/dL (13.0-18.0); Mean Corp Hgb Conc. 33.6 g/dL (33.0-37.0); Mean Corpuscular Hgb 31.2 pg (27.0-31.0); Mean Corpuscular Volume 92.7 fL (80.0-94.0); Mean Platelet Volume 10.2 fL (7.4-10.4); Nucleated Red Blood Cells % 0 % (-); Platelet Count 155 10^3/uL (130-400); Red Blood Cell Count 3.43 10^6/uL (4.70-6.10); Red Cell Dist. Width 14.7 % (11.5-14.5); White Blood Cell Count 32.4 10^3/uL (4.8-10.8)
[2023-12-03 08:11] LABS: ALT (SGPT) 43 U/L (0-50); AST (SGOT) 49 U/L (17-59); Albumin 2.3 g/dl (3.5-5.0); Alkaline Phosphatase 161 U/L (38-126); Blood Urea Nitrogen 26 mg/dl (9-20); Calcium 8.2 mg/dl (8.4-10.2); Carbon Dioxide 21 mmol/L (22-30); Chloride 113 mmol/L (98-107); Estimated Creatinine Clearance 51 ml/min; Glucose 79 mg/dl (70-99); Potassium 4.3 mmol/L (3.5-5.1); Sodium 139 mmol/L (135-145); Total Bilirubin 0.5 mg/dl (0.2-1.3); Total Protein 4.9 g/dl (6.3-8.2); eGFR > 60.00
[2023-12-03] MEDS: SENOKOT 8.59999999999999964 MG PO (08:15)
[2023-12-03] MEDS: PROSCAR 5 MG PO (08:15)
[2023-12-03] MEDS: TOPROL XL 25 MG PO (08:15)
[2023-12-03] MEDS: HEPARIN 5000 UNITS SC (08:16)
[2023-12-03] MEDS: MIRALAX 17 GRAMS PO (08:16)
--- NOTE | 2023-12-03 09:17 | PTCARENOTE ---
pt was noted to be in afib/ a-flutter with HR of 130's. Pope texted DR to see what could be done. Doctor ordered 5mg IV Lopressor and increased pt's PO metoprolol to 25 mg. Before 5mg IV Lopressor was given, pt switched alka into NS Rhythm and the
medication was not needed and held. Pt did get the 25 mg of PO metoprolol and pt is resting HR in the mid 60's.
[2023-12-03] MEDS: PACERONE 200 MG PO ×3 (10:40→23:04)
--- NOTE | 2023-12-03 11:14 | W.PN.HOSP.TC ---
Today's Communication/Plan
-
Goal of rate control
Continue antibiotics
Assessment / Plan
Assessment / Plan
Gen-awake, alert, anxious
HEENT-NC, AT, anicteric, clear oral mm
Neck-supple
CV-reg, no M, +S1/S2
Lungs-clear B/L
Abd-soft, NT, ND
Ext-no edema
Musculoskeletal-no cyanosis, clubbing
Skin-warm and dry
Neuro-grossly non-focal
Psych-calm, cooperative
Rapid atrial fibrillation -now on amiodarone per cardiology. Hemodynamically stable. Continue metoprolol. Appears to be a new diagnosis of atrial fibrillation.
Acute hypoxic respiratory insufficiency -possibly due to aspiration pneumonitis. Chest x-ray clear. Apparently he became hypoxic after he vomited. Oxygen saturation normal currently on room air. Monitor closely.
Septic shock -due to UTI. Blood and urine cultures positive for Proteus. Meropenem per infectious disease.
Stercoral colitis/significant constipation -continue aggressive bowel regimen.
Hypokalemia -resolved.
Hypomagnesemia -resolved.
Elevated LFTs -ischemic hepatitis versus other causes. Hold atorvastatin.
LEE ANN -resolved.
CAD -stable.
Hyperlipidemia -atorvastatin on hold due to elevated LFTs.
BPH
Anxiety/depression
Dementia -likely Alzheimer's type.
Full code
Anticipated Discharge: > 48 hours
Subjective/Interval History
-
Date of Service: December 03, 2023
Patient seen and examined. No complaints.
Objective Data
-
Labs:
Laboratory Results
12/03/23
07:09
WBC 32.4 H
Hgb 10.7 L
Hct 31.8 L
Plt Count 155
Sodium 139
Potassium 4.3
Chloride 113 H
Carbon Dioxide 21 L
BUN 26 H
Creatinine 1.1
Glucose 79
Calcium 8.2 L
Total Bilirubin 0.5
AST 49
ALT 43
Alkaline Phosphatase 161 H
Vital Signs:
Vital Signs
Temp Pulse Resp BP Pulse Ox
97.4 F 58 20 158/81 95
12/03/23 07:00 12/03/23 10:40 12/03/23 07:00 12/03/23 10:40 12/03/23 07:00
I&O
12/02/23 12/03/23 12/04/23
06:59 06:59 06:59
Intake Total 1300 / 1400 1010 / 1010
Output Total 400 / 400
Balance 1300 / 1400 610 / 610
Review of Systems
-
Unable to obtain full review of systems at this time due to: Dementia
History Source: Patient
All other systems: Reviewed and negative
--- NOTE | 2023-12-03 12:42 | W.PN.CARDCBS ---
Today's Communication / Plan
-
Start amiodarone 200 mg p.o. 3 times daily
Continue Toprol 25 mg daily
If no further plans for surgery or intervention we will likely start Eliquis in a.m.
Continue antibiotics.
Creatinine and liver function testing improving
Check echo.
Impression / Plan
-
PCP: Dr. Gale Loving
Accounting Consultant: None
Impression:
Sepsis due to UTI
Colitis
Paroxysmal atrial fibrillation - newly diagnosed
Hypokalemia
Hypomagnesemia
CAD w/ prior remote stenting ([facility])
Anxiety/depression
HLD
BPH
Plan:
-Having multiple paroxysms of atrial fibrillation. Will start amiodarone 200 mg p.o. 3 times daily. Continue Toprol 25 mg daily. Can use IV Lopressor as needed.
-[id number] score 3 (age, CAD). Discussed anticoagulation with patient's son, Charli. Charli states he would be agreeable to start patient on anticoagulation. He understands the risk of bleeding. Will follow him clinically for the next 24 to
40 hours before making final decision.
-He does note the patient has a history of falls recently, however he states he feels he would rather accept the risk of bleeding than the risk of stroke. If patient continues to have falls, would strongly consider stopping anticoagulation.
-Will have case management assess the cost of Eliquis 5mg BID and start this admission
-Continue antibiotics. Creatinine has improved. LFTs has also improved.
-Patient remains very confused.
-Check echo
-Called and spoke with patient's son, Charli, on the phone for 11:15. Discussed diagnosis of afib, workup, and plan at this time. He prefers to start anticoagulation this admission
HPI: Chapito is an 83-year-old male with past medical history of CAD with prior stenting, hyperlipidemia, BPH, and anxiety. He presented to ER for evaluation from a care home due to decreased oxygen level and episode of vomiting. In ER,
initial EKG showed he was in rapid atrial fibrillation with heart rate in the 160s. He was also found to have elevated white blood count with evidence sepsis due to UTI. He also had abdominal pain and CT scan showed large left inguinal hernia with
surrounding inflammation as well as stercoral colitis. He was started on IV antibiotics and admitted for further evaluation and management. For his rapid atrial fibrillation, this appears to be a new diagnosis and he was initiated on a Cardizem
drip. He spontaneously converted to sinus rhythm and subsequently Cardizem drip was stopped as his heart rate was in the 50s. He remains in sinus rhythm this morning. He denies any complaints, however history is difficult to elicit given
underlying dementia.
Progress Note - Accounting Consultant
Subjective
Date of Service: December 03, 2023
Remains very confused and still having multiple paroxysms of atrial fibrillation.
Objective
Labs:
12/03/23 07:09
12/03/23 07:09
Labs
Hgb 10.7 g/dL (13.0-18.0) L 12/03/23 07:09
Hct 31.8 % (39.0-52.0) L 12/03/23 07:09
Plt Count 155 10^3/uL (130-400) 12/03/23 07:09
Sodium 139 mmol/L (135-145) 12/03/23 07:09
Potassium 4.3 mmol/L (3.5-5.1) 12/03/23 07:09
BUN 26 mg/dl (9-20) H 12/03/23 07:09
Creatinine 1.1 mg/dL (0.7-1.3) 12/03/23 07:09
Glucose 79 mg/dl (70-99) 12/03/23 07:09
Vital Signs and I&O:
Vital Signs
Temp Pulse Resp BP Pulse Ox
97.4 F 58 20 158/81 95
12/03/23 07:00 12/03/23 10:40 12/03/23 07:00 12/03/23 10:40 12/03/23 07:00
Vital Signs
Temp Pulse Resp BP Pulse Ox
97.4 F 58 20 158/81 95
12/03/23 07:00 12/03/23 10:40 12/03/23 07:00 12/03/23 10:40 12/03/23 07:00
Intake & Output
12/01/23 12/02/23 12/03/23 12/04/23
06:59 06:59 06:59 06:59
Intake Total 1300 / 1400 1010 / 1010
Output Total 400 / 400
Balance 1300 / 1400 610 / 610
Physical Exam
Physical Exam
GEN: Anxious, not following command
HEENT: supple, anicteric, mmm
LUNGS: CTA, no wheezes/rales
CV: irreg, S1/S2, 1/6 syst LSB, no gallop
ABD: soft, BS+, NT/ND
EXT: No edema
NEURO: Moving all extremity
SKIN: No rash
--- NOTE | 2023-12-03 12:54 | W.PN.ID1 ---
Date of Service
Date of Service: December 03, 2023
Today's Communication
Continue antibiotics
Assessment / Plan
Marked leukocytosis
Proteus bacteremia
Complicated urinary tract infection
Clinical sepsis
Fever
Stercoral colitis
Lactic acidosis
LEE ANN
Transaminitis
Hx CAD
Anxiety/depression
BPH
Recommendations:
Continue meropenem for today.
Await final identification of blood culture isolate.
Monitor white count and temperature curve.
Monitor creatinine and estimated creatinine clearance closely for further antibiotic dosing adjustments.
����������������������������������������������������������
Subjective / Review of Systems
Review of Systems: No Fever and No Chills
Vital Signs / Physical Exam
Vital Signs
Vital Signs
Temp Pulse Resp BP Pulse Ox
97.4 F 58 20 158/81 95
12/03/23 07:00 12/03/23 10:40 12/03/23 07:00 12/03/23 10:40 12/03/23 07:00
Physical Exam
Constitutional: Comfortable, Chronically Ill and Non-toxic
Eyes: Sclera Anicteric
Cardiovascular: S1/S2; Negative S3/S4
Pulmonary: Non Labored
Gastrointestinal: Soft and Non Distended
Genito-Urinary: Other (Large left inguinal hernia)
Extremities: Edema; Negative Cyanosis or Erythema
Neurological: Awake and Alert
Psychological: Calm
Objective Data
Lab Data
Lab Results
12/03/23 07:09
12/03/23 07:09
Estimated Creat Clear 51 ml/min 12/03/23 07:09
Lactic Acid 3.8 mmol/L (0.7-2.0) H 12/02/23 04:59
Total Bilirubin 0.5 mg/dl (0.2-1.3) 12/03/23 07:09
AST 49 U/L (17-59) 12/03/23 07:09
ALT 43 U/L (0-50) 12/03/23 07:09
Alkaline Phosphatase 161 U/L (38-126) H 12/03/23 07:09
Most recent labs reviewed.
Micro Results:
12/01/23 13:24 Blood Culture - Preliminary
Blood/Venous Positive culture in progress
Gram Stain - Final
12/01/23 13:22 Blood Culture - Preliminary
Blood/Venous Proteus species
Gram Stain - Preliminary
12/01/23 15:24 Urine Culture - Final
Urine Proteus mirabilis
12/02/23 10:09 Blood Culture - Preliminary
Blood/Venous No Growth in 24 hours- Final report to follow
12/02/23 10:25 Blood Culture - Preliminary
Blood/Venous No Growth in 24 hours- Final report to follow
12/02/23 05:04 MRSA Screen - Final
Nose No Methicillin Resistant Staphylococcus aureus isolated.
Imaging:
12/01/2023 CT abdomen/pelvis with IV contrast: Moderate stercoral colitis in the distal sigmoid colon and rectum noted. Large left inguinal hernia containing most of the sigmoid colon with surrounding inflammation. A large amount of fecal material
in the cecum suggesting constipation. No CT evidence for colonic obstruction, ascites or pneumoperitoneum. A severely enlarged prostate gland causing chronic urinary bladder outlet obstruction is noted. Please see full dictation for additional
detail. Film personally viewed.
--- NOTE | 2023-12-03 18:42 | PTCARENOTE ---
Patient sustained A-fib with SVT for about five minuets. Contacted doctor at told them about the occurrence
[2023-12-03] MEDS: HEPARIN SC ×2 (23:05→23:08)
[2023-12-04] VITALS (8 sets, daily range): BP systolic 105–161; BP diastolic 57–94; PULSE 54
--- NOTE | 2023-12-04 05:13 | PTCARENOTE ---
Pt tele alarm signaled. Once reviewed, noted pt had two 16 beat runs tach HR reaching 120's and was discovered pt converted from sinus rhythm to afib. Pt sleeping in bed. Pt then converted to sinus darnell low 50's high 40's. COMMISSARY REPRESENTATIVE Naina Wilkes made
aware, no further orders.
[2023-12-04] MEDS: LOPRESSOR 5 MG IV (09:57)
[2023-12-04] MEDS: TOPROL XL PO (09:59)
[2023-12-04] MEDS: MERREM 500 MG IV (10:00)
[2023-12-04] MEDS: STERILE WATER FOR INJECTION 10 ML IV (10:01)
[2023-12-04] MEDS: MIRALAX PO (10:09)
[2023-12-04] MEDS: PROSCAR 5 MG PO (10:10)
[2023-12-04] MEDS: SENOKOT 8.59999999999999964 MG PO (10:10)
[2023-12-04] MEDS: PACERONE PO (10:27)
[2023-12-04] MEDS: HEPARIN SC (10:28)
[2023-12-04] MEDS: PACERONE 200 MG PO ×3 (10:45→20:37)
--- NOTE | 2023-12-04 12:11 | W.PN.CARDCBS ---
Today's Communication / Plan
-
Continue loading with amiodarone
In sinus bradycardia at present and has clear sick sinus syndrome with episodes of rapid A-fib as well
Family agreeable to start anticoagulation but understands there is risk for bleeding and falls with severe dementia
Check echo
Discussed with primary service
Impression / Plan
-
PCP: Dr. Gale Loving
Pocket Machine Operator: None
Impression:
Sepsis due to UTI
Colitis
Paroxysmal atrial fibrillation - newly diagnosed
Hypokalemia
Hypomagnesemia
CAD w/ prior remote stenting ([facility])
Anxiety/depression
HLD
BPH
Plan:
Clearly has an element of sick sinus syndrome
Was in rapid atrial fibrillation earlier today and went to sinus bradycardia after Lopressor iv.
Will continue amiodarone 200 mg p.o. 3 times daily loading if patient is able to take p.o. medication
Of note patient is only taking 1 dose so far yet was started on 12/02
Was agreeable to start anticoagulation and will start Eliquis 5 mg p.o. twice daily
Family understands the risk of bleeding with falls and is willing to accept that risk
Would have a low threshold to stop anticoagulation given severe dementia
[id number] score 3 (age, CAD).
Check echo
Discussed with primary service
HPI: Chapito is an 83-year-old male with past medical history of CAD with prior stenting, hyperlipidemia, BPH, and anxiety. He presented to ER for evaluation from a correction due to decreased oxygen level and episode of vomiting. In ER,
initial EKG showed he was in rapid atrial fibrillation with heart rate in the 160s. He was also found to have elevated white blood count with evidence sepsis due to UTI. He also had abdominal pain and CT scan showed large left inguinal hernia with
surrounding inflammation as well as stercoral colitis. He was started on IV antibiotics and admitted for further evaluation and management. For his rapid atrial fibrillation, this appears to be a new diagnosis and he was initiated on a Cardizem
drip. He spontaneously converted to sinus rhythm and subsequently Cardizem drip was stopped as his heart rate was in the 50s. He remains in sinus rhythm this morning. He denies any complaints, however history is difficult to elicit given
underlying dementia.
Progress Note - Pocket Machine Operator
Subjective
Date of Service: December 04, 2023
He appears confused.
Objective
Labs:
Labs
Hgb 10.7 g/dL (13.0-18.0) L 12/03/23 07:09
Hct 31.8 % (39.0-52.0) L 12/03/23 07:09
Plt Count 155 10^3/uL (130-400) 12/03/23 07:09
Sodium 139 mmol/L (135-145) 12/03/23 07:09
Potassium 4.3 mmol/L (3.5-5.1) 12/03/23 07:09
BUN 26 mg/dl (9-20) H 12/03/23 07:09
Creatinine 1.1 mg/dL (0.7-1.3) 12/03/23 07:09
Glucose 79 mg/dl (70-99) 12/03/23 07:09
Vital Signs and I&O:
Vital Signs
Temp Pulse Resp BP Pulse Ox
98.4 F 48 18 122/57 95
12/04/23 11:00 12/04/23 11:00 12/04/23 11:00 12/04/23 11:00 12/04/23 11:00
Vital Signs
Temp Pulse Resp BP Pulse Ox
98.4 F 48 18 122/57 95
12/04/23 11:00 12/04/23 11:00 12/04/23 11:00 12/04/23 11:00 12/04/23 11:00
Intake & Output
12/02/23 12/03/23 12/04/23 12/05/23
06:59 06:59 06:59 06:59
Intake Total 1300 / 1400 1010 / 1010 720 / 720
Output Total 400 / 400
Balance 1300 / 1400 610 / 610 720 / 720
Physical Exam
Physical Exam
General: Awake but confused
Neck: Supple, no JVD, HJR, carotids +2 B/L, no bruits bilaterally.
Heart: Non displaced PMI, irregular, no murmurs, No S3, S4, no rubs.
Lungs: Poor effort
Extremities: No clubbing, cyanosis or edema bilaterally.
Neuro: Awake but confused
--- NOTE | 2023-12-04 13:15 | CM ---
Patient seen bedside eating lunch. CM spoke with Rosana from [facility], patient is LTC resident on [place] bed hold. Rosana reports patient is alert with confusion, able to make his needs known, ambulates independently, eats independently, needs
assist with dressing and bathing. Patient PCP Gale Loving, [facility]. CM discussed with Rosana PT recommendations of SNF, will need auth for SNF when patient medically stable to return to LTC. CM will continue to follow for
discharge planning needs.
Plan; return to SNF when stable, will need auth.
--- NOTE | 2023-12-04 13:57 | W.PN.ID1 ---
Date of Service
Date of Service: December 04, 2023
Today's Communication
Continue antibiotics. Changed to Unasyn
Assessment / Plan
Marked leukocytosis
Proteus bacteremia
Complicated urinary tract infection
Clinical sepsis
Fever
Stercoral colitis
Lactic acidosis
LEE ANN
Transaminitis
Hx CAD
Anxiety/depression
BPH
Recommendations:
Narrow to Unasyn.
Monitor white count and temperature curve.
����������������������������������������������������������
Chief Complaint
-: UTI and Bacteremia
Subjective / Review of Systems
Review of Systems: No Fever and No Chills
Vital Signs / Physical Exam
Vital Signs
Vital Signs
Temp Pulse Resp BP Pulse Ox
98.4 F 48 18 122/57 95
12/04/23 11:00 12/04/23 11:00 12/04/23 11:00 12/04/23 11:00 12/04/23 11:00
Physical Exam
Constitutional: Comfortable, Chronically Ill and Non-toxic
Eyes: Sclera Anicteric
Oropharyngeal: Poor Dention
Cardiovascular: S1/S2; Negative S3/S4
Pulmonary: Non Labored
Gastrointestinal: Soft and Non Distended
Genito-Urinary: Other (Large left inguinal hernia)
Extremities: Edema; Negative Cyanosis or Erythema
Neurological: Awake and Alert
Psychological: Calm
Objective Data
Lab Data
Estimated Creat Clear 51 ml/min 12/03/23 07:09
Lactic Acid 3.8 mmol/L (0.7-2.0) H 12/02/23 04:59
Total Bilirubin 0.5 mg/dl (0.2-1.3) 12/03/23 07:09
AST 49 U/L (17-59) 12/03/23 07:09
ALT 43 U/L (0-50) 12/03/23 07:09
Alkaline Phosphatase 161 U/L (38-126) H 12/03/23 07:09
Most recent labs reviewed.
Micro Results:
12/02/23 10:09 Blood Culture - Preliminary
Blood/Venous No Growth in 48 hours- Final report to follow
12/02/23 10:25 Blood Culture - Preliminary
Blood/Venous No Growth in 48 hours- Final report to follow
12/01/23 13:24 Blood Culture - Final
Blood/Venous Proteus mirabilis
Coagulase neg. staphylococcus
Additional testing on request
Gram Stain - Final
12/01/23 13:22 Blood Culture - Final
Blood/Venous Proteus mirabilis
Gram Stain - Final
12/01/23 15:24 Urine Culture - Final
Urine Proteus mirabilis
12/02/23 05:04 MRSA Screen - Final
Nose No Methicillin Resistant Staphylococcus aureus isolated.
Imaging:
12/01/2023 CT abdomen/pelvis with IV contrast: Moderate stercoral colitis in the distal sigmoid colon and rectum noted. Large left inguinal hernia containing most of the sigmoid colon with surrounding inflammation. A large amount of fecal material
in the cecum suggesting constipation. No CT evidence for colonic obstruction, ascites or pneumoperitoneum. A severely enlarged prostate gland causing chronic urinary bladder outlet obstruction is noted. Please see full dictation for additional
detail. Film personally viewed.
--- NOTE | 2023-12-04 15:00 | W.PN.HOSP.TC ---
Today's Communication/Plan
-
encourage meds (applesauce or water ice for better compliance)
monitor Tele
start Eliquis
Assessment / Plan
Assessment / Plan
Assessment:
Rapid atrial fibrillation
Underlying SSS
- continue Amiodarone load
- continue Metoprolol
- check Echo
- DCA cards following
Acute hypoxic respiratory insufficiency - resolved
- possibly due to aspiration pneumonitis. chest x-ray clear. Apparently he became hypoxic after he vomited. Oxygen saturation normal currently on room air. Monitor closely.
Septic shock
- due to complicated UTI. Blood and urine cultures positive for Proteus.
- Unasyn per ID
Stercoral colitis/significant constipation
- continue aggressive bowel regimen
Hypokalemia
- resolved.
Hypomagnesemia
- resolved.
Elevated LFTs
- ischemic hepatitis versus other causes. Hold atorvastatin.
LEE ANN
- resolved.
CAD
- stable.
Hyperlipidemia
- atorvastatin on hold due to elevated LFTs.
BPH
Anxiety/depression
Dementia
- likely Alzheimer's type.
DVT ppx: Eliquis
Code: Full
Anticipated Discharge: 24 - 48 hours
Subjective/Interval History
-
Date of Service: December 04, 2023
denies any new complaints at present
was denying Amio pills but able to take one with prompting from nurses. Had received Lopressor x 1 with bradycardia
Objective Data
-
Vital Signs:
Vital Signs
Temp Pulse Resp BP Pulse Ox
98.4 F 48 18 122/57 95
12/04/23 11:00 12/04/23 11:00 12/04/23 11:00 12/04/23 11:00 12/04/23 11:00
I&O
06/08/2612/04/23 12/05/23
06:59 06:59 06:59
Intake Total 1010 / 1010 720 / 720
Output Total 400 / 400
Balance 610 / 610 720 / 720
Physical Exam
-
General: No Apparent Distress
HEENT: Normocephalic and Atraumatic
Respiratory: Negative Wheezes
Cardiac: Regular Rhythm
GI: Soft
Genito-urinary: No Costovertebral Tender
Neuro: AO x 3
Hematologic / Lymphatic: No Lymphadenopathy
Psych: Calm
Data Reviewed
-
Total Time Spent with Patient (in minutes): 42
Labs: Labs Reviewed by me
[2023-12-04] MEDS: STERILE WATER FOR INJECTION IV ×2 (15:34→23:06)
[2023-12-04] MEDS: UNASYN IV ×2 (16:24→23:12)
[2023-12-04] MEDS: ELIQUIS 5 MG PO (20:38)
[2023-12-05 03:41] VITALS: BP 117/57
[2023-12-05] MEDS: UNASYN IV ×4 (04:51→21:31)
[2023-12-05 07:06] LABS: % Basophils 0.4 % (0-2); % Eosinophils 0.7 % (0-6); % Immature Granulocytes 1.5 % (0-0.5); % Lymphocytes 8.3 % (20.5-51.1); % Neutrophils 84.1 % (42.2-75.2); Absolute Basophils 0.1 10^3/uL (0-0.2); Absolute Eosinophils 0.1 10^3/uL (0-0.7); Absolute Immature Granulocytes 0.2 10^3/uL (0-0.05); Absolute Monocytes 0.6 10^3/uL (0.1-0.6); Absolute Neutrophils 10.2 10^3/uL (1.4-6.5); Hematocrit 35.2 % (39.0-52.0); Hemoglobin 11.7 g/dL (13.0-18.0); Mean Corp Hgb Conc. 33.2 g/dL (33.0-37.0); Mean Corpuscular Volume 93.4 fL (80.0-94.0); Mean Platelet Volume 10.3 fL (7.4-10.4); Nucleated Red Blood Cells % 0 % (-); Platelet Count 146 10^3/uL (130-400); Red Blood Cell Count 3.77 10^6/uL (4.70-6.10); Red Cell Dist. Width 14.6 % (11.5-14.5); White Blood Cell Count 12.1 10^3/uL (4.8-10.8)
[2023-12-05 07:30] VITALS: BP 171/92
[2023-12-05] MEDS: TOPROL XL 25 MG PO (08:42)
[2023-12-05] MEDS: SENOKOT 8.59999999999999964 MG PO (08:43)
[2023-12-05] MEDS: PROSCAR 5 MG PO (08:43)
[2023-12-05] MEDS: MIRALAX 17 GRAMS PO (08:43)
[2023-12-05] MEDS: PACERONE 200 MG PO ×2 (08:43→20:33)
[2023-12-05] MEDS: ELIQUIS 5 MG PO ×2 (08:43→20:33)
[2023-12-05] MEDS: STERILE WATER FOR INJECTION IV (08:49)
--- NOTE | 2023-12-05 09:21 | W.PN.HOSP.TC ---
Today's Communication/Plan
-
check Echo. continue Amio load
continue Unasyn per ID
Assessment / Plan
Assessment / Plan
Assessment:
Rapid atrial fibrillation
Underlying SSS
- continue Amiodarone load
- continue Metoprolol
- continue Eliquis
- check Echo
- DCA cards following
Acute hypoxic respiratory insufficiency - resolved
- possibly due to aspiration pneumonitis. chest x-ray clear. Apparently he became hypoxic after he vomited. Oxygen saturation normal currently on room air. Monitor closely.
Septic shock
- due to complicated UTI. Blood and urine cultures positive for Proteus.
- Unasyn per ID
Stercoral colitis/significant constipation
- continue aggressive bowel regimen
Hypokalemia
- resolved.
Hypomagnesemia
- resolved.
Elevated LFTs
- ischemic hepatitis versus other causes. Hold atorvastatin.
LEE ANN
- resolved.
CAD
- stable.
Hyperlipidemia
- atorvastatin on hold due to elevated LFTs.
BPH
Anxiety/depression
Dementia
- likely Alzheimer's type.
DVT ppx: Eliquis
Code: Full
Anticipated Discharge: 24 - 48 hours
Subjective/Interval History
-
Date of Service: December 05, 2023
denies any new complaints today
now taking Amio consistently
Objective Data
-
Labs:
Laboratory Results
12/05/23 12/05/23
06:50 08:18
WBC 12.1 H
Hgb 11.7 L
Hct 35.2 L
Plt Count 146
Sodium Cancelled Pending
Potassium Cancelled Pending
Chloride Cancelled Pending
Carbon Dioxide Cancelled Pending
BUN Cancelled Pending
Creatinine Cancelled Pending
Glucose Cancelled Pending
Calcium Cancelled Pending
Total Bilirubin Cancelled Pending
AST Cancelled Pending
ALT Cancelled Pending
Alkaline Phosphatase Cancelled Pending
Vital Signs:
Vital Signs
Temp Pulse Resp BP Pulse Ox
97.5 F 91 17 171/91 95
12/05/23 07:30 12/05/23 08:42 12/05/23 07:30 12/05/23 08:42 12/05/23 07:30
I&O
12/04/23 12/05/23 12/06/23
06:59 06:59 06:59
Intake Total 720 / 720 720 / 720
Balance 720 / 720 720 / 720
Physical Exam
-
General: No Apparent Distress
HEENT: Normocephalic and Atraumatic
Cardiac: Regular Rhythm, S1/S2 and Bradycardic
GI: Soft
Genito-urinary: No Costovertebral Tender
Neuro: AO x 3
Psych: Calm
Data Reviewed
-
Total Time Spent with Patient (in minutes): 42
Labs: Labs Reviewed by me
--- NOTE | 2023-12-05 10:09 | CM ---
Addendum entered by Jazzy Loya 12/05/23 12:12:
CM received call from patients son, James, reports he is POA for patient. James reports his father does not have Dementia, he gets nervous being in hospitals. James reports if patient recognizes his sister and himself, if needed, CM can
call James while in room with patient and that may help patient feel more comfortable. James reports he has been trying to move patient out of [facility] but has been having a difficult time. CM reports referrals were sent this morning to
several SNF [place] accepting facilties, per [facility], [facility], [facility], and [facility] can offer a bed for patient. James requesting information be texted to him, CM sent address and main number for facilities who can accept. James reports
he would like to try to see the facilities if possible. CM discussed Hospitalist reports discharge within 24-48 hours, will need auth for SNF, will need updated PT/OT notes, will follow up with patients son on facility chosen.
Original Note:
Per Hospitalist, anticipated discharge 24-48 hours, daughter Piedad requesting a call in regards to possibly finding another facility. CM spoke with daughter, referral sent out to [place] accepting SNFS. Patient may need to return to [facility] and
work on transferring to a facility if facility not found by discharge. Will need to initiate auth for SNF for skilled time before returning to LTC at [facility]. CM will continue to follow for discharge planning needs.
Plan; referrals sent to other [place] accepting SNFS, will need auth for SNF, vs return to [facility] on bed hold.
[2023-12-05 11:06] VITALS: BP 179/82
--- NOTE | 2023-12-05 13:53 | W.PN.CARDCBS ---
Today's Communication / Plan
-
Stable cardiology status for discharge
Follow-up arranged
Impression / Plan
-
PCP: Dr. Gale Loving
Sorting And Folding Supervisor: None
Impression:
Sepsis due to UTI
Colitis
Paroxysmal atrial fibrillation - newly diagnosed
Hypokalemia
Hypomagnesemia
CAD w/ prior remote stenting ([facility])
Anxiety/depression
HLD
BPH
Plan:
Remains in sinus rhythm at present
Stable cardiology status for discharge on amiodarone 200 mg p.o. twice daily and Toprol 25 mg daily as well as Eliquis
Family understands the risk of bleeding with falls and is willing to accept that risk on Eliquis
Would have a low threshold to stop anticoagulation given severe dementia
[id number] score 3 (age, CAD).
Discussed with primary service
HPI: Chapito is an 83-year-old male with past medical history of CAD with prior stenting, hyperlipidemia, BPH, and anxiety. He presented to ER for evaluation from [place] [facility] due to decreased oxygen level and episode of vomiting. In ER,
initial EKG showed he was in rapid atrial fibrillation with heart rate in the 160s. He was also found to have elevated white blood count with evidence sepsis due to UTI. He also had abdominal pain and CT scan showed large left inguinal hernia with
surrounding inflammation as well as stercoral colitis. He was started on IV antibiotics and admitted for further evaluation and management. For his rapid atrial fibrillation, this appears to be a new diagnosis and he was initiated on a Cardizem
drip. He spontaneously converted to sinus rhythm and subsequently Cardizem drip was stopped as his heart rate was in the 50s. He remains in sinus rhythm this morning. He denies any complaints, however history is difficult to elicit given
underlying dementia.
Progress Note - Sorting And Folding Supervisor
Subjective
Date of Service: December 05, 2023
Appears confused
Objective
Labs:
12/05/23 06:50
Labs
Hgb 11.7 g/dL (13.0-18.0) L 12/05/23 06:50
Hct 35.2 % (39.0-52.0) L 12/05/23 06:50
Plt Count 146 10^3/uL (130-400) 12/05/23 06:50
Sodium Cancelled 12/05/23 06:50
Potassium Cancelled 12/05/23 06:50
BUN Cancelled 12/05/23 06:50
Creatinine Cancelled 12/05/23 06:50
Glucose Cancelled 12/05/23 06:50
Vital Signs and I&O:
Vital Signs
Temp Pulse Resp BP Pulse Ox
98.6 F 66 18 179/82 97
12/05/23 11:06 12/05/23 11:06 12/05/23 11:06 12/05/23 11:06 12/05/23 11:06
Vital Signs
Temp Pulse Resp BP Pulse Ox
98.6 F 66 18 179/82 97
12/05/23 11:06 12/05/23 11:06 12/05/23 11:06 12/05/23 11:06 12/05/23 11:06
Intake & Output
12/03/23 12/04/23 12/05/23 12/06/23
06:59 06:59 06:59 06:59
Intake Total 1010 / 1010 720 / 720 720 / 720
Output Total 400 / 400
Balance 610 / 610 720 / 720 720 / 720
Physical Exam
Physical Exam
General: Confused
Neck: Supple, no JVD, HJR, carotids +2 B/L, no bruits bilaterally.
Heart: Non displaced PMI, RRR, no murmurs, No S3, S4, no rubs.
Lungs: Poor effort
Extremities: No clubbing, cyanosis or edema bilaterally.
Neuro: Confused
--- NOTE | 2023-12-05 15:27 | W.PN.ID1 ---
Date of Service
Date of Service: December 05, 2023
Today's Communication
Continue Unasyn (d#5)
Assessment / Plan
Marked leukocytosis
Proteus bacteremia
Complicated urinary tract infection
Clinical sepsis
Fever
Stercoral colitis
Lactic acidosis
LEE ANN
Transaminitis
Hx CAD
Anxiety/depression
BPH
Recommendations:
Continue Unasyn (d#5)
Monitor white count and temperature curve.
At discharge, can transition to oral amoxicillin, to complete a total of 10 days of antibiotics.
����������������������������������������������������������
Chief Complaint
-: UTI and Bacteremia
Subjective / Review of Systems
Review of Systems: No Fever
Vital Signs / Physical Exam
Vital Signs
Vital Signs
Temp Pulse Resp BP Pulse Ox
98.6 F 66 18 179/82 97
12/05/23 11:06 12/05/23 11:06 12/05/23 11:06 12/05/23 11:06 12/05/23 11:06
Physical Exam
Constitutional: Comfortable, Chronically Ill and Non-toxic
Head: Normocephalic
Eyes: Sclera Anicteric
Oropharyngeal: Poor Dention
Cardiovascular: S1/S2; Negative S3/S4
Pulmonary: Non Labored
Gastrointestinal: Soft, Non Tender and Non Distended
Genito-Urinary: Other (Large left inguinal hernia)
Extremities: Edema; Negative Cyanosis or Erythema
Neurological: Awake and Alert
Psychological: Calm and Confused
Objective Data
Lab Data
Lab Results
12/05/23 06:50
Estimated Creat Clear Cancelled 12/05/23 06:50
Lactic Acid 3.8 mmol/L (0.7-2.0) H 12/02/23 04:59
Total Bilirubin Cancelled 12/05/23 06:50
AST Cancelled 12/05/23 06:50
ALT Cancelled 12/05/23 06:50
Alkaline Phosphatase Cancelled 12/05/23 06:50
Most recent labs reviewed.
Micro Results:
12/02/23 10:09 Blood Culture - Preliminary
Blood/Venous No Growth in 72 hours- Final report to follow
12/02/23 10:25 Blood Culture - Preliminary
Blood/Venous No Growth in 72 hours- Final report to follow
12/01/23 13:24 Blood Culture - Final
Blood/Venous Proteus mirabilis
Coagulase neg. staphylococcus
Additional testing on request
Gram Stain - Final
12/01/23 13:22 Blood Culture - Final
Blood/Venous Proteus mirabilis
Gram Stain - Final
12/01/23 15:24 Urine Culture - Final
Urine Proteus mirabilis
12/02/23 05:04 MRSA Screen - Final
Nose No Methicillin Resistant Staphylococcus aureus isolated.
Imaging:
12/01/2023 CT abdomen/pelvis with IV contrast: Moderate stercoral colitis in the distal sigmoid colon and rectum noted. Large left inguinal hernia containing most of the sigmoid colon with surrounding inflammation. A large amount of fecal material
in the cecum suggesting constipation. No CT evidence for colonic obstruction, ascites or pneumoperitoneum. A severely enlarged prostate gland causing chronic urinary bladder outlet obstruction is noted. Please see full dictation for additional
detail. Film personally viewed.
[2023-12-05 16:05] LABS: ALT (SGPT) 26 U/L (0-50); AST (SGOT) 22 U/L (17-59); Albumin 2.5 g/dl (3.5-5.0); Alkaline Phosphatase 92 U/L (38-126); Blood Urea Nitrogen 15 mg/dl (9-20); Calcium 8.3 mg/dl (8.4-10.2); Carbon Dioxide 27 mmol/L (22-30); Chloride 110 mmol/L (98-107); Estimated Creatinine Clearance 80 ml/min; Glucose 99 mg/dl (70-99); Potassium 4.4 mmol/L (3.5-5.1); Sodium 140 mmol/L (135-145); Total Bilirubin 0.6 mg/dl (0.2-1.3); Total Protein 5.5 g/dl (6.3-8.2); eGFR > 60.00
[2023-12-05 19:50] VITALS: BP 172/75
[2023-12-05 23:21] VITALS: BP 189/97
[2023-12-06] VITALS (10 sets, daily range): BP systolic 106–180; BP diastolic 71–105; PULSE 57; O2SAT 94–96
[2023-12-06] MEDS: APRESOLINE 5 MG IV (00:03)
[2023-12-06] MEDS: UNASYN IV ×2 (04:14→08:46)
[2023-12-06] MEDS: LOPRESSOR 2.5 MG IV (06:24)
--- NOTE | 2023-12-06 06:40 | PTCARENOTE ---
Patient`s heart rate sustaining in 120`s-150`s with AFIB. Not symptomatic. Patient noted to be laying in bed. See chart for BP. Nurse practitioner notified Naina, 2.5 mg IV Lopressor ordered.
[2023-12-06 08:06] LABS: % Basophils 0.4 % (0-2); % Eosinophils 0.4 % (0-6); % Immature Granulocytes 2.5 % (0-0.5); % Monocytes 7.9 % (1.7-9.3); % Neutrophils 76.8 % (42.2-75.2); Absolute Immature Granulocytes 0.2 10^3/uL (0-0.05); Absolute Monocytes 0.6 10^3/uL (0.1-0.6); Absolute Neutrophils 6.3 10^3/uL (1.4-6.5); Hematocrit 37.9 % (39.0-52.0); Hemoglobin 12.6 g/dL (13.0-18.0); Mean Corp Hgb Conc. 33.2 g/dL (33.0-37.0); Mean Corpuscular Volume 93.3 fL (80.0-94.0); Mean Platelet Volume 10.4 fL (7.4-10.4); Nucleated Red Blood Cells % 0 % (-); Platelet Count 180 10^3/uL (130-400); Red Blood Cell Count 4.06 10^6/uL (4.70-6.10); White Blood Cell Count 8.1 10^3/uL (4.8-10.8)
[2023-12-06] MEDS: SENOKOT 8.59999999999999964 MG PO (08:21)
[2023-12-06] MEDS: TOPROL XL 25 MG PO (08:21)
[2023-12-06] MEDS: MIRALAX 17 GRAMS PO (08:21)
[2023-12-06] MEDS: ELIQUIS 5 MG PO ×2 (08:21→19:24)
[2023-12-06] MEDS: PACERONE 200 MG PO ×2 (08:22→19:20)
[2023-12-06] MEDS: PROSCAR 5 MG PO (08:22)
[2023-12-06 08:32] LABS: ALT (SGPT) 25 U/L (0-50); AST (SGOT) 23 U/L (17-59); Albumin 2.6 g/dl (3.5-5.0); Alkaline Phosphatase 98 U/L (38-126); Blood Urea Nitrogen 13 mg/dl (9-20); Calcium 8.5 mg/dl (8.4-10.2); Carbon Dioxide 27 mmol/L (22-30); Chloride 110 mmol/L (98-107); Estimated Creatinine Clearance 80 ml/min; Glucose 97 mg/dl (70-99); Potassium 4.5 mmol/L (3.5-5.1); Sodium 141 mmol/L (135-145); Total Bilirubin 0.9 mg/dl (0.2-1.3); Total Protein 5.7 g/dl (6.3-8.2); eGFR > 60.00
--- NOTE | 2023-12-06 11:37 | W.PN.HOSP.TC ---
Today's Communication/Plan
-
dc to SNF
Assessment / Plan
Assessment / Plan
Assessment:
Rapid atrial fibrillation
Underlying SSS
- continue Amiodarone BID
- continue Metoprolol
- continue Eliquis
- Echo: normal EF, mild LVH, mild MR and AR
- DCA cards following
Acute hypoxic respiratory insufficiency - resolved
- possibly due to aspiration pneumonitis. chest x-ray clear. Apparently he became hypoxic after he vomited. Oxygen saturation normal currently on room air. Monitor closely.
Septic shock
- due to complicated UTI. Blood and urine cultures positive for Proteus.
- transition to Augmentin and complete 10 day course per ID
Stercoral colitis/significant constipation
- continue aggressive bowel regimen
Hypokalemia
- resolved.
Hypomagnesemia
- resolved.
Elevated LFTs
- ischemic hepatitis versus other causes
- resolved
LEE ANN
- resolved.
CAD
- stable.
Hyperlipidemia
- resume atorvastatin at dc
BPH
Anxiety/depression
Dementia
- likely Alzheimer's type.
DVT ppx: Eliquis
Code: Full
More than 30 minutes spent in discharge including
Final examination of the patient
Summarizing hospital stay
Instructions for continuing care to all relevant caregivers
Preparation of discharge records, prescriptions, and referral forms
Total time spent (in minutes): 42
Anticipated Discharge: Today
Subjective/Interval History
-
Date of Service: December 06, 2023
denies any new complaints at present
Objective Data
-
Labs:
Laboratory Results
12/06/23
07:22
WBC 8.1
Hgb 12.6 L
Hct 37.9 L
Plt Count 180 D
Sodium 141
Potassium 4.5
Chloride 110 H
Carbon Dioxide 27
BUN 13
Creatinine 0.7
Glucose 97
Calcium 8.5
Total Bilirubin 0.9
AST 23
ALT 25
Alkaline Phosphatase 98
Vital Signs:
Vital Signs
Temp Pulse Resp BP Pulse Ox
98.2 F 55 17 180/74 93
12/06/23 11:31 12/06/23 11:31 12/06/23 11:31 12/06/23 11:31 12/06/23 11:31
I&O
12/05/23 12/06/23 12/07/23
06:59 06:59 06:59
Intake Total 720 / 720 360 / 360
Balance 720 / 720 360 / 360
Physical Exam
-
General: No Apparent Distress
HEENT: Normocephalic
Respiratory: Clear to Auscultation; Negative Wheezes
Cardiac: Regular Rhythm and S1/S2
Genito-urinary: No Costovertebral Tender
Neuro: AO x 3
Hematologic / Lymphatic: No Lymphadenopathy
Psych: Calm
Data Reviewed
-
Total Time Spent with Patient (in minutes): 42
Labs: Labs Reviewed by me
--- NOTE | 2023-12-06 12:03 | W.DS.TRANS ---
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
-
Discharge Instructions:
Discharge Diagnosis/Procedures Rapid Afib, on Amiodarone. Sepsis from UTI/
Bacteremia, hypoxia resolved
Diet Regular
Activity As tolerated
Bathing Restrictions None
Instructions:
Stand-Alone Forms:
Changes to Home Medications: No
Discharge Medications:
DC Medications w/original date entered in [place]
acetaminophen 325 mg tablet (Tylenol) 650 mg PO AMHS back pain 12/01/23
acetaminophen 325 mg tablet (Tylenol) 650 mg PO Q6H PRN mild pain/temp>101 12/01/23
atorvastatin 10 mg tablet 10 mg PO DAILY High Cholesterol 12/01/23
bisacodyl 10 mg rectal suppository 10 mg WI DAILY PRN no BM post MOM 12/01/23
cholecalciferol (vitamin D3) 125 mcg (5,000 unit) tablet (Vitamin D3) 125 mcg PO FR Supplement 12/01/23
finasteride 5 mg tablet (Proscar) 5 mg PO DAILY prostate issues 12/01/23
magnesium hydroxide 400 mg/5 mL oral suspension (Milk of Magnesia) 3,200 mg PO HSPRN PRN no BM x 3 days 12/01/23
melatonin 10 mg tablet 10 mg PO HS Sleep 12/01/23
sennosides 8.6 mg tablet (Senokot) 8.6 mg PO DAILY Constipation 12/01/23
sodium phosphates 19 gram-7 gram/118 mL enema (Fleet Enema) 118 ml WI DAILYPRN PRN no BM after suppository 12/01/23
amiodarone 200 mg tablet (Pacerone) 200 mg PO BID #60 tabs 12/06/23
amoxicillin 875 mg-potassium clavulanate 125 mg tablet 1 tab PO Q12 #10 tabs 12/06/23
apixaban 5 mg tablet (Eliquis) 5 mg PO BID #60 tabs 12/06/23
metoprolol succinate 25 mg tablet,extended release 24 hr 25 mg PO DAILY #30 tabs 12/06/23
Home Medication Changes
Pending Results: No
Total time spent discharging patient (in min): 42
--- NOTE | 2023-12-06 12:46 | W.PN.ID1 ---
Date of Service
Date of Service: December 06, 2023
Today's Communication
Continue Unasyn (d#6)
Assessment / Plan
Marked leukocytosis
Proteus bacteremia
Complicated urinary tract infection
Clinical sepsis
Fever
Stercoral colitis
Lactic acidosis
LEE ANN
Transaminitis
Hx CAD
Anxiety/depression
BPH
Recommendations:
Continue Unasyn (d#6)
Monitor white count and temperature curve.
At discharge, can transition to oral amoxicillin, to complete a total of 10 days of antibiotics. (through 12/10/2023)
����������������������������������������������������������
Chief Complaint
-: UTI and Bacteremia
Subjective / Review of Systems
Review of Systems: No Fever, No Chills and No Abdominal Pain
Vital Signs / Physical Exam
Vital Signs
Vital Signs
Temp Pulse Resp BP Pulse Ox
97.8 F 55 17 152/78 93
12/06/23 11:48 12/06/23 11:31 12/06/23 11:48 12/06/23 11:48 12/06/23 11:31
Physical Exam
Constitutional: No Acute Distress, Comfortable, Chronically Ill and Non-toxic
Head: Normocephalic
Eyes: Sclera Anicteric
Oropharyngeal: Poor Dention
Cardiovascular: S1/S2; Negative S3/S4
Pulmonary: Non Labored
Gastrointestinal: Soft, Non Tender and Non Distended
Genito-Urinary: Other (Large left inguinal hernia)
Extremities: Edema; Negative Cyanosis or Erythema
Neurological: Awake and Alert
Psychological: Calm and Confused
Objective Data
Lab Data
Lab Results
12/06/23 07:22
12/06/23 07:22
Estimated Creat Clear 80 ml/min 12/06/23 07:22
Lactic Acid 3.8 mmol/L (0.7-2.0) H 12/02/23 04:59
Total Bilirubin 0.9 mg/dl (0.2-1.3) 12/06/23 07:22
AST 23 U/L (17-59) 12/06/23 07:22
ALT 25 U/L (0-50) 12/06/23 07:22
Alkaline Phosphatase 98 U/L (38-126) 12/06/23 07:22
Most recent labs reviewed.
Micro Results:
12/02/23 10:25 Blood Culture - Preliminary
Blood/Venous No Growth in 4 days- Final report to follow
12/02/23 10:09 Blood Culture - Preliminary
Blood/Venous No Growth in 4 days- Final report to follow
12/01/23 13:24 Blood Culture - Final
Blood/Venous Proteus mirabilis
Coagulase neg. staphylococcus
Additional testing on request
Gram Stain - Final
12/01/23 13:22 Blood Culture - Final
Blood/Venous Proteus mirabilis
Gram Stain - Final
12/01/23 15:24 Urine Culture - Final
Urine Proteus mirabilis
12/02/23 05:04 MRSA Screen - Final
Nose No Methicillin Resistant Staphylococcus aureus isolated.
Imaging:
12/01/2023 CT abdomen/pelvis with IV contrast: Moderate stercoral colitis in the distal sigmoid colon and rectum noted. Large left inguinal hernia containing most of the sigmoid colon with surrounding inflammation. A large amount of fecal material
in the cecum suggesting constipation. No CT evidence for colonic obstruction, ascites or pneumoperitoneum. A severely enlarged prostate gland causing chronic urinary bladder outlet obstruction is noted. Please see full dictation for additional
detail. Film personally viewed.
[2023-12-06] MEDS: AUGMENTIN 875 MG/125 MG 1 TABLET PO ×2 (12:55→19:20)
--- NOTE | 2023-12-06 15:15 | CM ---
Addendum entered by Jazzy Loya 12/06/23 16:09:
[facility]
Report: [phone]

Original Note:
CM spoke with patients son, James, [facility], would like patient to transfer patient there. CM spoke with Dionna in admissions at , able to accept patient, discussed patient would transition to LTC. CM spoke with Aron Prajapati,
obtained authorization for SNF, Auth: [id number], skilled level 1, 12/05-12/10, next review 12/10, update clinicals verbally to . Patient will require ambulance transport, scheduled for 4:30 p.m. CM updated Virgilio White on patient
discharging to . CM reviewed IMM with patients son, will email to [email or web address]. CM will continue to follow for discharge planning needs.
Plan; [facility] SNF, 4:30 p.m. ambulance transport.
--- NOTE | 2023-12-06 16:20 | PTCARENOTE ---
pt found within the bathroom and had fallen on his right side and right elbow, Pt found by educator. Vitals taken and found to be stable. Notified Doctor who placed a stat CT fort the pt.
--- NOTE | 2023-12-06 18:35 | PTCARENOTE ---
pt report given to [facility] at 18:35
== END 2023-12-06 22:12 | DRG 871 ==
LOC: 4 WEST ACU 16:43
PROVIDERS: Hospitalist; Nurse Practitioner Family; ADMITTING PHYSICIAN Hospitalist; ATTENDING PHYSICIAN Internal Medicine; CONSULT PHYSICIAN Internal Medicine Infectious Disease; CONSULT PHYSICIAN Surgery; EMERGENCY PHYSICIAN Emergency Medicine; FAMILY PHYSICIAN Hospitalist; OTHER PHYSICIAN Internal Medicine Cardiovascular Disease; OTHER PHYSICIAN Internal Medicine Critical Care Medicine
PROC: 3E0DXRZ Introduction of Antiarrhythmic into Mouth and Pharynx, External Approach (ICD-10-PCS; 2023-12-03)
DX: A41.59 Other Gram-negative sepsis (principal); G92.8 Other toxic encephalopathy; R65.21 Severe sepsis with septic shock; J69.0 Pneumonitis due to inhalation of food and vomit; K72.00 Acute and subacute hepatic failure without coma; N39.0 Urinary tract infection, site not specified; F02.C4 Dementia in other diseases classified elsewhere, severe, with anxiety; N17.9 Acute kidney failure, unspecified; E87.20 Acidosis, unspecified; I48.0 Paroxysmal atrial fibrillation; R09.02 Hypoxemia; R06.02 Shortness of breath; K40.90 Unilateral inguinal hernia, without obstruction or gangrene, not specified as recurrent; R06.89 Other abnormalities of breathing; N32.0 Bladder-neck obstruction; N40.1 Benign prostatic hyperplasia with lower urinary tract symptoms; K59.00 Constipation, unspecified; K52.89 Other specified noninfective gastroenteritis and colitis; I49.5 Sick sinus syndrome; I25.10 Atherosclerotic heart disease of native coronary artery without angina pectoris; F32.A Depression, unspecified; E78.00 Pure hypercholesterolemia, unspecified; B96.4 Proteus (mirabilis) (morganii) as the cause of diseases classified elsewhere; E87.6 Hypokalemia; E83.42 Hypomagnesemia; G30.9 Alzheimer's disease, unspecified; Z95.5 Presence of coronary angioplasty implant and graft; Z91.041 Radiographic dye allergy status; Z11.52 Encounter for screening for COVID-19
CPT/HCPCS: 51701; 70450; 71045; 74177; 76700; 80053; 81003; 81015; 83605; 83690; 83735; 84443; 85025; 87040; 87070; 87077; 87086; 87149; 87186; 87205; 87811; 93005; 93306; 96361; 96365; 96366; 96367; 96375; 97162; 97167; 97530; 97535; 99291; Q9967

== ENCOUNTER 2024-05-07 14:09 | Emergency (ER) | payer OTHER, SELFPAY ==
[2024-05-07 14:13] VITALS: BP 109/66
[2024-05-07 14:56] LABS: % Basophils 0.1 % (0-2); % Eosinophils 0.2 % (0-6); % Immature Granulocytes 0.6 % (0-0.5); % Lymphocytes 8.4 % (20.5-51.1); % Monocytes 2.6 % (1.7-9.3); % Neutrophils 88.1 % (42.2-75.2); Absolute Immature Granulocytes 0.1 10^3/uL (0-0.05); Absolute Lymphocytes 0.7 10^3/uL (1.2-3.4); Absolute Monocytes 0.2 10^3/uL (0.1-0.6); Absolute Neutrophils 7.4 10^3/uL (1.4-6.5); Hematocrit 35.9 % (39.0-52.0); Hemoglobin 11.9 g/dL (13.0-18.0); Mean Corp Hgb Conc. 33.1 g/dL (33.0-37.0); Mean Corpuscular Hgb 31.2 pg (27.0-31.0); Mean Corpuscular Volume 94.2 fL (80.0-94.0); Nucleated Red Blood Cells % 0 % (-); Platelet Count 195 10^3/uL (130-400); Red Blood Cell Count 3.81 10^6/uL (4.70-6.10); Red Cell Dist. Width 15.1 % (11.5-14.5); White Blood Cell Count 8.4 10^3/uL (4.8-10.8)
[2024-05-07 15:00] VITALS: BP 95/67
[2024-05-07 15:07] LABS: ALT (SGPT) 16 U/L (0-50); AST (SGOT) 23 U/L (17-59); Albumin 3.4 g/dl (3.5-5.0); Alkaline Phosphatase 128 U/L (38-126); Blood Urea Nitrogen 26 mg/dl (9-20); Calcium 9.2 mg/dl (8.4-10.2); Carbon Dioxide 24 mmol/L (22-30); Chloride 106 mmol/L (98-107); Glucose 132 mg/dl (70-99); Potassium 3.7 mmol/L (3.5-5.1); Sodium 142 mmol/L (135-145); Total Bilirubin 0.9 mg/dl (0.2-1.3); Total Protein 6.2 g/dl (6.3-8.2); eGFR 59.26
--- NOTE | 2024-05-07 15:13 | ED.GENMED ---
History of Present Illness
General
Chief Complaint: Heart Rate Problem
Source: patient
Exam Limitations: dementia
Time Seen by Provider: 05/07/24 15:02
History of Present Illness
History of Present Illness:
See MDM
Past History
Past History
ED Past Medical History: Arrthythmia and HTN
ED Past Surgical History: None
Social History
Tobacco: Non-smoker
Alcohol: None
Phy Exam
Physical Exam
Physical Exam:
See MDM
Course
Orders/Labs/Results
Orders:
Orders
05/07/24 14:16
Electrocardiogram (*1) Urgent
Reason for Study: Other
Other Reason for Exam: hypotension/unresponsive episode/tachycardia
05/07/24 14:17
EKG- Treatment ONCE
05/07/24 14:33
Complete Blood Count/With Diff Urgent
Comprehensive Metabolic Panel Urgent
Troponin I Urgent
05/07/24 15:12
Electrocardiogram (*1) Urgent
Reason for Study: Tachycardia
EKG- Treatment ONCE
Abnormal Lab Results
05/07/24
14:33
RBC 3.81 L 10^6/uL
(4.70-6.10)
Hgb 11.9 L g/dL
(13.0-18.0)
Hct 35.9 L %
(39.0-52.0)
MCV 94.2 H fL
(80.0-94.0)
MCH 31.2 H pg
(27.0-31.0)
RDW 15.1 H %
(11.5-14.5)
Abs Immat Gran (auto) 0.1 H 10^3/uL
(0-0.05)
Absolute Neuts (auto) 7.4 H 10^3/uL
(1.4-6.5)
Absolute Lymphs (auto) 0.7 L 10^3/uL
(1.2-3.4)
Immature Gran % 0.6 H %
(0-0.5)
Neutrophils % 88.1 H %
(42.2-75.2)
Lymphocytes % 8.4 L %
(20.5-51.1)
BUN 26 H mg/dl
(9-20)
Glucose 132 H mg/dl
(70-99)
Alkaline Phosphatase 128 H U/L
(38-126)
Total Protein 6.2 L g/dl
(6.3-8.2)
Albumin 3.4 L g/dl
(3.5-5.0)
05/07/24 14:33
05/07/24 14:33
Vital Signs
Initial and Last Documented VS:
Initial Vital Signs
Temp Pulse Resp BP Pulse Ox
98.1 F 131 18 109/66 98
05/07/24 14:13 05/07/24 14:13 05/07/24 14:13 05/07/24 14:13 05/07/24 14:13
Last Documented Vital Signs
Temp Pulse Resp BP Pulse Ox
98.1 F 52 23 161/67 96
05/07/24 14:13 05/07/24 18:01 05/07/24 18:01 05/07/24 18:01 05/07/24 18:01
MDM/Problems Addressed
Differential Diagnosis Includes:
HPI and MDM Narrative:
83-year-old male presenting for evaluation of syncopal episode while he was at lunch. Patient is a poor historian. It was noted that patient was tachycardic. Prior records do indicate history of A-fib. EKG done prior to try my assessment shows
A-fib with RVR. When entered the room, patient is now in rate controlled A-fib. He is sitting in bed comfortably and offers no complaints
Physical exam
General: Well appearing and non-toxic
HEENT: protecting airway
Neck: appears supple
CV: No evidence of cyanosis. Irregular rhythm, regular rate
Resp: No accessory muscle use
Abd: Non-distended
Extremities: No deformities
Neuro: alert
Psych: Normal affect
Skin: Intact
Problems Addressed including Acute and Chronic Conditions affecting care:
1. A-fib with RVR
Acuity: acute
Prognosis: stable
Details: Symptoms self resolved. This is likely the source of his syncope. Will obtain basic blood work and continue to reassess
Updates
After prolonged observation, patient remains in rate controlled A-fib. Given that all symptoms have resolved, will discharge
Differential Diagnosis (but not limited to): Cardiac arrhythmia, ACS
Testing considered: Urinalysis
Drug therapy (if applicable): OTC meds, please see d/c instruction regarding Rx drugs
Amount and/or Complexity of Data Reviewed
Clinical info obtained from: Patient
External data reviewed: N/A
Labs I independently reviewed (but not limited to): White blood cell count normal, mild anemia
Radiology: N/A
Pulse Ox: not hypoxic
EKG independently reviewed: A-fib with RVR, left axis, no STEMI
Liquefier: Rate controlled A-fib
Critical Care: N/A
Risk of Complication:
Social Determinants of health: Good social support
Discussed with other providers: N/A
Escalation of Care includes Admit/Obs: After being observed in the Emergency Department, pt stable for discharge.
Occasional wrong word or 'sound a like' substitutions may have occurred due to the inherent limitations of voice recognition software. Read the chart carefully and recognize, using context, where substitutions have occurred.
*Critical Care Note
Total Time (30-74mins, 75-104mins- exclusive of procedures): Not Applicable
ED Attending Note
-
Portions of this chart may have been created with voice recognition software.� Occasional wrong word or��sound alike� substitutions may have occurred due to the inherent limitations of voice recognition software.
Discharge Plan
Departure
Patient Disposition: Home (Routine Discharge)
Date of Disposition: 05/07/24
Time of Disposition: 18:20
Patient with high blood pressure during this ER visit?: Yes
Discharge Problem:
Paroxysmal atrial fibrillation with RVR
Instructions: Atrial Fibrillation (DC), BLOOD PRESSURE
Prescriptions:
No Action
sennosides [Senokot] 8.6 mg Tablet
8.6 mg PO DAILY
acetaminophen [Tylenol] 325 mg Tablet
650 mg PO Q6H PRN (Reason: mild pain/temp>101)
acetaminophen [Tylenol] 325 mg Tablet
650 mg PO AMHS
atorvastatin 10 mg Tablet
10 mg PO DAILY
magnesium hydroxide [Milk of Magnesia] 400 mg/5 mL Suspension
3,200 mg PO HSPRN PRN (Reason: no BM x 3 days)
bisacodyl 10 mg Suppository
10 mg OK DAILY PRN (Reason: no BM post MOM)
Fleet Enema 19-7 gram/118 mL Enema
118 ml [place] DAILYPRN PRN (Reason: no BM after suppository)
finasteride [Proscar] 5 mg Tablet
5 mg PO DAILY
cholecalciferol (vitamin D3) [Vitamin D3] 125 mcg (5,000 unit) Tablet
125 mcg PO FR
melatonin 10 mg Tablet
10 mg PO HS
amoxicillin-pot clavulanate 875-125 mg Tablet
1 tab PO Q12 Qty: 10 0RF
Eliquis 5 mg Tablet
5 mg PO BID Qty: 60 0RF
amiodarone [Pacerone] 200 mg Tablet
200 mg PO BID Qty: 60 0RF
metoprolol succinate 25 mg Tablet Extended Release 24 Hr
25 mg PO DAILY Qty: 30 0RF
Referrals:
Wilfrid Hansen I., DO [Family Provider] -
Activity Restrictions/Additional Instructions:
Please return for any worsening symptoms.
You may return at any time if you have further concerns.
Please follow up with your doctor at the first available appointment, preferably this week.
Thank you for choosing [facility].
Interventions
Interventions:
*Risk Screen - Suicide Last Done: 05/07/24 14:13
*General Assessment Last Done: 05/07/24 14:13
*Neglect/Abuse Screening Last Done: 05/07/24 14:13
ED- Fall Risk Assessment Last Done: 05/07/24 14:13
*ED COVID-19 Vaccine History Last Done: 05/07/24 14:13
ED- Cardiac Assessment Last Done: 05/07/24 14:13
ED- Pulmonary Assessment Last Done: 05/07/24 14:32
Discharge Date and Time
Print Language: TRISTANIAN
[2024-05-07 15:17] LABS: Troponin I 0.013 ng/ml
[2024-05-07 16:00] VITALS: BP 106/69
[2024-05-07 18:01] VITALS: BP 161/67
[2024-05-07 19:00] VITALS: BP 170/82
== END 2024-05-07 19:46 | disposition home or self-care (01) ==
LOC: EMR 14:09
PROVIDERS: EMERGENCY PHYSICIAN Student in an Organized Health Care Education/Training Program; FAMILY PHYSICIAN Internal Medicine
DX: I48.0 Paroxysmal atrial fibrillation (principal); I10 Essential (primary) hypertension; F03.90 Unspecified dementia, unspecified severity, without behavioral disturbance, psychotic disturbance, mood disturbance, and anxiety
CPT/HCPCS: 99284; 80053; 84484; 85025; 93005

== ENCOUNTER 2024-05-13 07:07 | Inpatient (IN) | payer MEDICARE, OTHER, SELFPAY ==
[2024-05-13] VITALS (20 sets, daily range): BP systolic 92–142; BP diastolic 28–91
--- NOTE | 2024-05-13 05:11 | ED.GENMED ---
History of Present Illness
<BRE Moncada - Last Filed: 05/13/24 06:15>
General
Chief Complaint: Rectal Bleeding
Source: patient
Exam Limitations: dementia
Time Seen by Provider: 05/13/24 05:07
History of Present Illness
History of Present Illness:
An 84-year-old male with past medical history of dementia, A-fib, hypertension, hyperlipidemia, presents to the emergency department for rectal bleeding. Patient is a poor historian and unreliable when questioning. He is unaware of why he is here.
He does admit to left lower quadrant abdominal pain for unknown duration. He denies chest pain, shortness of breath, vomiting, headache, fever, chills.
Past History
<BRE Moncada - Last Filed: 05/13/24 06:15>
Past History
ED Past Medical History: Arrthythmia and HTN
ED Past Surgical History: None
Social History
Tobacco: Non-smoker
Alcohol: None
Review of Systems
<BRE Moncada - Last Filed: 05/13/24 06:15>
Review of Systems
Allergies reviewed?: Yes
Unable to obtain full review of systems at this time due to: dementia
Phy Exam
<BRE Moncada - Last Filed: 05/13/24 06:15>
General Physical Exam
General Presentation: well appearing and mild distress
General age: appears stated age
General Habitus: elderly
General Mental: angry, anxious and confused
General Hydration: dry mucous membranes
ENT Exam
ENT Exam: neck supple
Eye Exam
Eye Exam: conjunctiva normal
Cardiovascular Exam
Cardiovascular Exam: no edema, no gallop, normal peripheral pulses and bradycardia
Pulmonary Exam
Pulmonary Exam: lungs clear, no respiratory distress, no crackles and no cough
Gastrointestinal Exam
Gastrointestinal Exam: soft, non distended and tender
Palpation: left upper quadrant: Moderate tenderness, left lower quadrant: Minimal tenderness, right upper quadrant: Minimal tenderness, right lower quadrant: Minimal tenderness and generalized: Minimal tenderness
Stool: other (Brown with light red streaks/pink)
Guaiac Status: grossly bloody - positive
Neurological Exam
Neurological Exam: other (Patient is oriented to self, and year. Not to location.)
Musculoskeletal Exam
Musculoskeletal Exam: other (Lower legs are crossed and contracted.)
Skin Exam
Skin Exam: no rash, cyanosis and other (Poor dentition noted.)
Psychiatric Exam
Psychiatric Exam: other (Appears confused and agitated)
Course
<[place], [facility] - Last Filed: 05/13/24 06:15>
Orders/Labs/Results
Orders:
Orders
05/13/24 05:20
Complete Blood Count/With Diff Urgent
Comprehensive Metabolic Panel Urgent
Lactic Acid Urgent
Lipase Urgent
PTT Urgent
Prothrombin Time Urgent
Troponin I Urgent
05/13/24 05:25
Type+Screen Urgent
05/13/24 05:32
0.9% Sodium Chloride 1000 ml [Nss] 1,000 ml IV BOLUS
05/13/24 05:33
Pantoprazole [Protonix IV] 80 mg IV NOW STA
05/13/24 05:42
Urinalysis Reflex To Culture Urgent
Date Specimen was Collected: 05/13/24
Time Specimen was Collected: 05:42
05/13/24 05:43
Sterile Water [Sterile Water For Injection] 20 ml .ROUTE .STK-MED
05/13/24 05:45
Pantoprazole 80 mg/100 ml Nss [Protonix] 80 mg in 100 ml IV Q10H
05/13/24 05:52
ABO2 Urgent
BBK Wristband Number:
Associate notified that ABO2 has been ordered: [id number]
Date: 05/13/24
Time: 05:33
Director Of Corporate Marketing ID: [id number]
Abnormal Lab Results
05/13/24
05:20
RBC 3.65 L 10^6/uL
(4.70-6.10)
Hgb 11.5 L g/dL
(13.0-18.0)
Hct 34.5 L %
(39.0-52.0)
MCV 94.5 H fL
(80.0-94.0)
MCH 31.5 H pg
(27.0-31.0)
RDW 15.3 H %
(11.5-14.5)
Absolute Neuts (auto) 6.9 H 10^3/uL
(1.4-6.5)
Absolute Lymphs (auto) 0.7 L 10^3/uL
(1.2-3.4)
Absolute Monos (auto) 0.9 H 10^3/uL
(0.1-0.6)
Neutrophils % 80.6 H %
(42.2-75.2)
Lymphocytes % 8.2 L %
(20.5-51.1)
Monocytes % 10.4 H %
(1.7-9.3)
PT 19.1 H Sec
(11.4-14.6)
BUN 27 H mg/dl
(9-20)
Glucose 108 H mg/dl
(70-99)
Lactic Acid 2.8 H mmol/L
(0.7-2.0)
Troponin I 0.036 H* ng/ml
Total Protein 5.7 L g/dl
(6.3-8.2)
Albumin 3.0 L g/dl
(3.5-5.0)
Lipase 17 L U/L
(23-300)
05/13/24 05:20
05/13/24 05:20
Vital Signs
Initial and Last Documented VS:
Initial Vital Signs
Temp Pulse Resp BP
98.8 F 45 24 111/49
05/13/24 05:25 05/13/24 05:25 05/13/24 05:25 05/13/24 05:25
Last Documented Vital Signs
Temp Pulse Resp BP Pulse Ox
98.8 F 39 16 97/46 97
05/13/24 05:25 05/13/24 06:00 05/13/24 06:00 05/13/24 06:00 05/13/24 06:00
<Dwayne Dotson, DO - Last Filed: 05/13/24 05:52>
Orders/Labs/Results
Orders:
Orders
05/13/24 05:20
Complete Blood Count/With Diff Urgent
Comprehensive Metabolic Panel Urgent
Lactic Acid Urgent
Lipase Urgent
PTT Urgent
Prothrombin Time Urgent
Troponin I Urgent
05/13/24 05:25
Type+Screen Urgent
05/13/24 05:32
0.9% Sodium Chloride 1000 ml [Nss] 1,000 ml IV BOLUS
05/13/24 05:33
Pantoprazole [Protonix IV] 80 mg IV NOW STA
05/13/24 05:42
Urinalysis Reflex To Culture Urgent
Date Specimen was Collected: 05/13/24
Time Specimen was Collected: 05:42
05/13/24 05:43
Sterile Water [Sterile Water For Injection] 20 ml .ROUTE .STK-MED
05/13/24 05:45
Pantoprazole 80 mg/100 ml Nss [Protonix] 80 mg in 100 ml IV Q10H
05/13/24 05:52
ABO2 Urgent
BBK Wristband Number:
Associate notified that ABO2 has been ordered: [id number]
Date: 05/13/24
Time: 05:33
Director Of Corporate Marketing ID: [id number]
Abnormal Lab Results
05/13/24
05:20
RBC 3.65 L 10^6/uL
(4.70-6.10)
Hgb 11.5 L g/dL
(13.0-18.0)
Hct 34.5 L %
(39.0-52.0)
MCV 94.5 H fL
(80.0-94.0)
MCH 31.5 H pg
(27.0-31.0)
RDW 15.3 H %
(11.5-14.5)
Absolute Neuts (auto) 6.9 H 10^3/uL
(1.4-6.5)
Absolute Lymphs (auto) 0.7 L 10^3/uL
(1.2-3.4)
Absolute Monos (auto) 0.9 H 10^3/uL
(0.1-0.6)
Neutrophils % 80.6 H %
(42.2-75.2)
Lymphocytes % 8.2 L %
(20.5-51.1)
Monocytes % 10.4 H %
(1.7-9.3)
PT 19.1 H Sec
(11.4-14.6)
BUN 27 H mg/dl
(9-20)
Glucose 108 H mg/dl
(70-99)
Lactic Acid 2.8 H mmol/L
(0.7-2.0)
Troponin I 0.036 H* ng/ml
Total Protein 5.7 L g/dl
(6.3-8.2)
Albumin 3.0 L g/dl
(3.5-5.0)
Lipase 17 L U/L
(23-300)
05/13/24 05:20
05/13/24 05:20
Vital Signs
Initial and Last Documented VS:
Initial Vital Signs
Temp Pulse Resp BP
98.8 F 45 24 111/49
05/13/24 05:25 05/13/24 05:25 05/13/24 05:25 05/13/24 05:25
Last Documented Vital Signs
Temp Pulse Resp BP Pulse Ox
98.8 F 39 16 97/46 97
05/13/24 05:25 05/13/24 06:00 05/13/24 06:00 05/13/24 06:00 05/13/24 06:00
<BRE Moncada - Last Filed: 05/13/24 06:15>
MDM/Problems Addressed
Differential Diagnosis Includes:
Bleeding hemorrhoid, abdominal Neoplasm, perforated ulcer, Diverticulosis
<BRE Moncada - Last Filed: 05/13/24 06:15>
*Critical Care Note
Total Time (30-74mins, 75-104mins- exclusive of procedures): Not Applicable
<Dwayne Dotson DO - Last Filed: 05/13/24 05:52>
*Pulse Oximetry
Patient hypoxic: no
<Dwayne Dotson DO - Last Filed: 05/13/24 05:52>
Update Note
Update Note:
05/13/2024 0550 AM: Spoke with son Charli who confirmed the patient is a full code. He did give oral consent for blood products if needed. Blood consent is witnessed by nursing and is on the chart. Son states that patient has fallen several
times over the last month with the most recent fall, a week ago
ED Attending Note
<BRE Moncada - Last Filed: 05/13/24 06:15>
-
Portions of this chart may have been created with voice recognition software.� Occasional wrong word or��sound alike� substitutions may have occurred due to the inherent limitations of voice recognition software.
<Dwayne Dotson DO - Last Filed: 05/13/24 05:52>
ED Attending Note
Patient seen and examined by attending physician: Yes
I performed the substantive portion of visit, reviewed & personally made and approve the management plan that is documented in note by myself or CHRISSY.: Yes
ED Attending Note:
Pleasantly demented 84-year-old male presents with GI bleed. He resides at [facility].
Discharge Plan
Departure
Patient Disposition: Admit
Date of Disposition: 05/13/24
Time of Disposition: 05:48
Presentation/result/management discussed w/ accepting MD/DO: Hospitalist
Condition: Serious
Discharge Problem:
Acute GI bleeding, Dementia, Sick sinus syndrome
Prescriptions:
No Action
sennosides [Senokot] 8.6 mg Tablet
8.6 mg PO DAILY
acetaminophen [Tylenol] 325 mg Tablet
650 mg PO Q4H PRN (Reason: pain)
acetaminophen [Tylenol] 325 mg Tablet
650 mg PO BID
atorvastatin 10 mg Tablet
10 mg PO HS
magnesium hydroxide [Milk of Magnesia] 400 mg/5 mL Suspension
2,400 mg PO PRN PRN (Reason: no BM x 3 days)
bisacodyl 10 mg Suppository
10 mg ND DAILY PRN (Reason: no BM after MOM)
Fleet Enema 19-7 gram/118 mL Enema
118 ml ND DAILYPRN PRN (Reason: no BM after suppository)
finasteride [Proscar] 5 mg Tablet
5 mg PO DAILY
cholecalciferol (vitamin D3) [Vitamin D3] 125 mcg (5,000 unit) Tablet
125 mcg PO FR
melatonin 10 mg Tablet
10 mg PO HS
Eliquis 5 mg Tablet
5 mg PO BID Qty: 60 0RF
multivitamin Tablet
1 tab PO DAILY
trazodone 50 mg Tablet
50 mg PO QPM
citalopram 10 mg Tablet
10 mg PO DAILY
loperamide [Imodium A-D] 2 mg Tablet
2 mg PO Q4H PRN (Reason: diarrhea)
alprazolam [Xanax] 0.5 mg Tablet
0.5 mg PO Q6H PRN (Reason: anxiety)
amiodarone [Pacerone] 200 mg tablet
200 mg PO DAILY
Referrals:
Wilfrid Hansen I., [Family Provider] -
Interventions
Interventions:
*Risk Screen - Suicide Last Done: 05/13/24 05:09
*General Assessment Last Done: 05/13/24 05:09
*Neglect/Abuse Screening Last Done: 05/13/24 05:09
ED- Fall Risk Assessment Last Done: 05/13/24 05:59
*ED COVID-19 Vaccine History Last Done: 05/13/24 05:09
NP-Onbdxq-Khqogtbnrc Assessment Last Done: 05/13/24 05:59
ED- Cardiac Assessment Last Done: 05/13/24 05:59
ED- Pulmonary Assessment Last Done: 05/13/24 05:59
Discharge Date and Time
Print Language: BULGARIAN
--- NOTE | 2024-05-13 05:29 | EDRN ---
HR dropping into high 30's - Dr Dotson informed and in to see pt - pt asking for apple juice
[2024-05-13] MEDS: NSS 1000 IV ×3 (05:32→23:04)
[2024-05-13 05:40] LABS: % Basophils 0.2 % (0-2); % Eosinophils 0.2 % (0-6); % Immature Granulocytes 0.4 % (0-0.5); % Lymphocytes 8.2 % (20.5-51.1); % Monocytes 10.4 % (1.7-9.3); % Neutrophils 80.6 % (42.2-75.2); Absolute Lymphocytes 0.7 10^3/uL (1.2-3.4); Absolute Monocytes 0.9 10^3/uL (0.1-0.6); Absolute Neutrophils 6.9 10^3/uL (1.4-6.5); Hematocrit 34.5 % (39.0-52.0); Hemoglobin 11.5 g/dL (13.0-18.0); Mean Corp Hgb Conc. 33.3 g/dL (33.0-37.0); Mean Corpuscular Hgb 31.5 pg (27.0-31.0); Mean Corpuscular Volume 94.5 fL (80.0-94.0); Mean Platelet Volume 9.5 fL (7.4-10.4); Nucleated Red Blood Cells % 0 % (-); Platelet Count 169 10^3/uL (130-400); Red Blood Cell Count 3.65 10^6/uL (4.70-6.10); Red Cell Dist. Width 15.3 % (11.5-14.5); White Blood Cell Count 8.5 10^3/uL (4.8-10.8)
[2024-05-13 05:42] LABS: Lactic Acid 2.8 mmol/L (0.7-2.0)
[2024-05-13] MEDS: PROTONIX IV 80 MG IV (05:47)
[2024-05-13 05:48] LABS: INR 1.59; PT 19.1 Sec (11.4-14.6)
[2024-05-13 05:49] LABS: APTT 31.9 Sec (23.4-35.0)
[2024-05-13 05:51] LABS: ALT (SGPT) 16 U/L (0-50); AST (SGOT) 22 U/L (17-59); Alkaline Phosphatase 101 U/L (38-126); Blood Urea Nitrogen 27 mg/dl (9-20); Calcium 8.8 mg/dl (8.4-10.2); Carbon Dioxide 26 mmol/L (22-30); Chloride 105 mmol/L (98-107); Glucose 108 mg/dl (70-99); Lipase 17 U/L (23-300); Potassium 4.2 mmol/L (3.5-5.1); Sodium 141 mmol/L (135-145); Total Bilirubin 0.8 mg/dl (0.2-1.3); Total Protein 5.7 g/dl (6.3-8.2); eGFR 58.89
[2024-05-13] MEDS: PROTONIX 100 IV (05:55)
[2024-05-13 06:01] LABS: Troponin I 0.036 ng/ml
[2024-05-13 06:15] LABS: Urine Albumin Trace (Neg - Trace); Urine Bilirubin 1+ (Negative); Urine Character Slightly Cloudy (Clear); Urine Color Amber; Urine Glucose Negative (Negative); Urine Ketone 1+ (Negative); Urine Leukocyte 1+ (Negative); Urine Nitrite Positive (Negative); Urine Occult Blood Negative (Negative); Urine Urobilinogen 3+ (Neg - 1+)
--- NOTE | 2024-05-13 06:33 | HPS.HSE ---
Family Physician
-
Family Physician: Wilfrid Hansen
Chief Complaint
-
Rectal bleeding.
History of Present Illness
This is an 84-year-old male with past medical history of dementia, atrial fibrillation on anticoagulation, sick sinus syndrome with known bradycardia, essential hypertension, dysphagia depression and anxiety presenting to the emergency department
with episode of hematochezia. Found to rectal bleeding at senior living and transferred to ED. Patient unable to provide history. Denies diarrhea, constipation, fevers or chills. No nausea or vomiting per senior living records. Found to have a bp
of 136/65 by ems.
In ED afebrile, bp 111/50, pulse was 39. Satting 97% on room air. Trop 0.036. Lactate 2.8. Hgb 11.5 (no change from 5 days ago). Platelet count normal. Chemistries within normal limit. INR 1.5.
Medical History
Past Medical History
Past Medical History: Reports Arrhythmia (atrial fibrillation, sick sinus syndrome), Dementia, Psychiatric (anxiety) and Other (BPH)
Past Surgical History: Reports None
Social History
Unable to obtain full social history at this time due to: Dementia
Family History
Family History: Not pertinent
Allergies / Home Medications
Allergies reflects when Allergies were last updated in [facility].
Home Medications with original date entered in [facility]
Allergy/Medication List:
Allergies
Allergy/AdvReac Type Severity Reaction Status Date / Time
iodine Allergy Unknown Verified 05/13/24 05:08
Home Medications
acetaminophen 325 mg tablet (Tylenol) 650 mg PO BID pain management 12/01/23
acetaminophen 325 mg tablet (Tylenol) 650 mg PO Q4H PRN pain 12/01/23
atorvastatin 10 mg tablet 10 mg PO HS High Cholesterol 12/01/23
bisacodyl 10 mg rectal suppository 10 mg MT DAILY PRN no BM after MOM 12/01/23
cholecalciferol (vitamin D3) 125 mcg (5,000 unit) tablet (Vitamin D3) 125 mcg PO FR Supplement 12/01/23
finasteride 5 mg tablet (Proscar) 5 mg PO DAILY prostate issues 12/01/23
magnesium hydroxide 400 mg/5 mL oral suspension (Milk of Magnesia) 2,400 mg PO PRN PRN no BM x 3 days 12/01/23
melatonin 10 mg tablet 10 mg PO HS Sleep 12/01/23
sennosides 8.6 mg tablet (Senokot) 8.6 mg PO DAILY Constipation 12/01/23
sodium phosphates 19 gram-7 gram/118 mL enema (Fleet Enema) 118 ml MT DAILYPRN PRN no BM after suppository 12/01/23
apixaban 5 mg tablet (Eliquis) 5 mg PO BID #60 tabs 12/06/23
alprazolam 0.5 mg tablet (Xanax) 0.5 mg PO Q6H PRN anxiety 05/13/24
amiodarone 200 mg tablet (Pacerone) 200 mg PO DAILY 05/13/24
citalopram 10 mg tablet 10 mg PO DAILY 05/13/24
loperamide 2 mg tablet (Imodium A-D) 2 mg PO Q4H PRN diarrhea 05/13/24
multivitamin 1 tab PO DAILY 05/13/24
trazodone 50 mg tablet 50 mg PO QPM anxiety 05/13/24
Review of Systems
-
Unable to obtain full review of systems at this time due to: Dementia
Physical Exam
Vital Signs
Vital Signs
Temp Pulse Resp BP Pulse Ox
98.8 F 49 14 139/53 99
05/13/24 05:25 05/13/24 06:30 05/13/24 06:30 05/13/24 06:30 05/13/24 06:30
Physical Exam
General: No Apparent Distress
HEENT: NormoCephalic, Anicteric, Moist mucous membranes, PERRLA and Peerless Conjunctivae
Respiratory: Clear
Cardiac: S1/S2 and Bradycardia
GI: Soft, Normal Bowel Sounds and Tender (left lower quadrant)
Rectal: Red
Genito-urinary: Deferred by me
Musculoskeletal: No Clubbing, No Cyanosis and No Edema
Skin: Warm
Neuro: Awake, Oriented (oriented to person only) and Nonfocal/grossly intact
Hematologic/Lymphatic: No Lymphadenopathy
Psych: Calm
Laboratory Results
-
05/13/24 05:20
05/13/24 05:20
Laboratory Results
PT 19.1 Sec (11.4-14.6) H 05/13/24 05:20
INR 1.59 05/13/24 05:20
APTT 31.9 Sec (23.4-35.0) 05/13/24 05:20
Lactic Acid 2.8 mmol/L (0.7-2.0) H 05/13/24 05:20
Total Bilirubin 0.8 mg/dl (0.2-1.3) 05/13/24 05:20
AST 22 U/L (17-59) 05/13/24 05:20
ALT 16 U/L (0-50) 05/13/24 05:20
Alkaline Phosphatase 101 U/L (38-126) 05/13/24 05:20
Troponin I 0.036 ng/ml H* 05/13/24 05:20
Lipase 17 U/L (23-300) L 05/13/24 05:20
Data Reviewed
-
Medical Tests (Nuc Med, Echo, EKG etc): Image Personally Visualized and interpreted
Lab Data: Labs Reviewed by me
Old Records: Reviewed
Impression/Plan
-
IMPRESSION:
This is an 84-year-old male with past medical history of dementia, atrial fibrillation on anticoagulation, sick sinus syndrome with known bradycardia, essential hypertension, dysphagia depression and anxiety presenting to the emergency department
with episode of hematochezia. Found to rectal bleeding at senior living and transferred to ED.
PLAN:
1. GI Bleed - Bright red blood per rectum suggests lower gi bleed. Possibly diverticular versus hemorrhoid. Patient on anticoagulation w/ apixaban with presumed last dose about 12 hours ago. INR 1.59. Somewhat tenous hemodynamics with normal bp
of 111/50 but trending down. Lactate 2.8.
- admit to imu
- npo for now except sips and oral meds
- type and screened done and son (poa) consented for blood
- h/h q 8 hours
- hold apixaban, amiodarone
- no signs of upper gi bleed at this time, ppi 40 iv daily
- held off on CT abdomen due to contrast allergy, monitor for now
- GI consult
2. AFIB - Currently sinus darnell. h/o sick sinus syndrome and bradycardia. Rates 39 - 45
- ecg
- hold amio and apixaban
- cardiology consultation
3. Troponin elevation - No chest pain. Trop 0.036. Non-ischemic myocardial injury suspected
- hemodynamic support
- trend troponin q 6
- hold amio as above
- no echo
- cardiology consult
4. Lactic acidosis
- iv fluids, give addition 500 ml NS bolus
- IV fluids NS at 80 ml/hr for now
5. Medicine reconcilliation for other issues
- continue finasteride , citalopram trazodone and prn melatonin
DVT PPX - SCD
Code Status - Full Code
[2024-05-13 06:56] LABS: Urine Bacteria Many (Negative)
[2024-05-13 06:57] LABS: Urine Calcium Oxalate Crystals Seen
[2024-05-13 06:58] LABS: Urine Amorphous Seen; Urine Squamous Cell >30 /LPF (Few)
--- NOTE | 2024-05-13 07:28 | W.PN.HOSP.TC ---
Addendum entered and electronically signed by Sadia Reis MD 05/13/24 14:40:
I saw and evaluated the patient. I reviewed the resident�s note and agree with findings and plan as documented in the resident�s note.
GI bleed, suspect diverticular.
CT angio ordered by GI, contrast prep ordered due to iodine allergy documented.
Check iron panel, follow hemoglobin, follow vital signs.
Behavioral disturbance likely due to worsening dementia during hospital stay.
Restrained with hand mitts for protective measures.
Original Note:
Today's Communication/Plan
-
Trend troponin
Monitor H&H
Follow CBC
Right heel CR
CT angio in a.m.
Assessment / Plan
Assessment / Plan
IMPRESSION:
This is an 84-year-old male with past medical history of dementia, atrial fibrillation on anticoagulation, sick sinus syndrome with known bradycardia, essential hypertension, dysphagia depression and anxiety presenting to the emergency department
with episode of hematochezia. Found to rectal bleeding at [facility] and transferred to ED.
ASSESSMENT/PLAN:
#Acute GI Bleed
-Hb 11.5
-Suspect lower GI bleed from hemorrhoids vs diverticulosis
-Hold Eliquis
-CT angio Abd/pelvis w/wo IV in a.m.
-Follow H&H
-N.p.o.
-IV Protonix.
-GI consult.
-Monitor CBC.
#Paroxysmal A-fib with RVR/sick sinus syndrome
-Rate controlled on amiodarone, now with sinus bradycardia with heart rates in 40s.
-Recent admission 05/07 with A-fib, spontaneously converted.
-Hold amiodarone
-Cardiology consult.
-Monitor on telemetry.
#Presentation with acute confusion with agitation
-Suspect metabolic encephalopathy secondary to hypoperfusion injury. Other likely etiology include progressed dementia, polypharmacy.
-Continue IV fluid.
-Bilateral mitts.
#Abnormal troponin
-0.036 x 2. ECG unremarkable.
-Suspect nonischemic myocardial injury with RV strain.
-Trend until peaks.
#Elevated lactate
-Suspect type a lactic acidosis secondary to hypoperfusion injury.
-Continue IV fluid.
-Recheck in a.m.
#Swollen Scrotum
-Scrotal ultrasound.
#Right heel wound
-CR right heel in a.m. when patient is more stable to assess for osteomyelitis
#Anemia
-Hb 10.2
-Most likely due to acute blood loss vs anemia of chronic disease
-Check TIBC, transferrin, iron levels, B12.
DVT PPX - SCD
Code Status - Full Code
Anticipated Discharge: > 48 hours
Subjective/Interval History
-
Date of Service: May 13, 2024
Patient seen and examined in the room lying in bed. He is agitated and complains of abdominal pain. Bilateral soft arm mitts.
Objective Data
-
Labs:
Laboratory Results
05/13/24
05:20
WBC 8.5
Hgb 11.5 L
Hct 34.5 L
Plt Count 169
PT 19.1 H
INR 1.59
APTT 31.9
Sodium 141
Potassium 4.2
Chloride 105
Carbon Dioxide 26
BUN 27 H
Creatinine 1.2
Glucose 108 H
Calcium 8.8
Total Bilirubin 0.8
AST 22
ALT 16
Alkaline Phosphatase 101
Vital Signs:
Vital Signs
Temp Pulse Resp BP Pulse Ox
98.8 F 51 15 132/65 99
05/13/24 05:25 05/13/24 07:00 05/13/24 07:00 05/13/24 07:00 05/13/24 07:00
Review of Systems
-
Unable to obtain full review of systems at this time due to: Dementia
History Source: Patient
All other systems: Reviewed and negative
Physical Exam
-
General: No Apparent Distress and Cachectic
HEENT: Normocephalic and Other (Poor dentition)
Respiratory: Clear to Auscultation; Negative Wheezes
Cardiac: Regular Rhythm, S1/S2 and Irregular Rhythm
GI: Soft and Tender
Genito-urinary: No Costovertebral Tender
Skin: Warm
Neuro: Awake
Hematologic / Lymphatic: No Lymphadenopathy
Psych: Agitated
Data Reviewed
-
Total Time Spent with Patient (in minutes): 42
Labs: Labs Reviewed by me
--- NOTE | 2024-05-13 08:21 | CON.GI ---
Consultation
-
Date/Time Consultation Requested: 05/13/24 07.44 am
Date/Time Consultation Performed: 05/13/24 8.21 am
Requesting Provider: Zia Reddy MD, Resident
Performing Provider: Rosalind Butler MD, Resident
Reason for Consultation: Hematochezia
Medical History
Chief Complaint / HPI
History of Present Illness:
The patient is a 84-year-old male with a PMH of dementia, atrial fibrillation on anticoagulation, sick sinus syndrome with known bradycardia, essential hypertension, dysphagia depression and anxiety presenting to the emergency department with
episode of hematochezia. He was found to rectal bleeding at [facility] and brought to ER. Patient unable to provide history due his mental cognition. No new medication/antibiotic, diarrhea, nausea or vomiting per [facility] records. I called
POA of the patient, Charli Agrawal who stated he does not know details of the patient`s rectal bleeding.Charli reported no similar symptoms or bowel diseases in the past. Charli reported that the patient did not have an endoscopy or colonoscopy
in the past.
Past Medical History
Past Medical History: Other (dementia, atrial fibrillation on anticoagulation, sick sinus syndrome with known bradycardia, essential hypertension, dysphagia depression and anxiety)
Past Surgical History: None
Social History
Tobacco: Other
Living: Jail
Family History
Family History: Reviewed & Not Pertinent (His son reported no colon cancer running in the family. )
Allergies / Home Medications
Allergy/AdvReac Type Severity Reaction Status Date / Time
iodine Allergy Unknown Verified 05/13/24 05:08
�Medication �Instructions �Recorded
acetaminophen 325 mg tablet 650 mg PO BID pain management 12/01/23
(Tylenol)
acetaminophen 325 mg tablet 650 mg PO Q4HPRN PRN mild pain 12/01/23
(Tylenol)
atorvastatin 10 mg tablet 10 mg PO HS High Cholesterol 12/01/23
bisacodyl 10 mg rectal suppository 10 mg AR DAILYPRN PRN no BM 24 12/01/23
hours after MOM
cholecalciferol (vitamin D3) 125 125 mcg PO FR Supplement 12/01/23
mcg (5,000 unit) tablet (Vitamin
D3)
finasteride 5 mg tablet (Proscar) 5 mg PO DAILY prostate issues 12/01/23
magnesium hydroxide 400 mg/5 mL 2,400 mg PO [id number] PRN no BM x 3 12/01/23
oral suspension (Milk of Magnesia) days
melatonin 10 mg tablet 10 mg PO HS Sleep 12/01/23
sennosides 8.6 mg tablet (Senokot) 8.6 mg PO DAILY Constipation 12/01/23
sodium phosphates 19 gram-7 118 ml AR DAILYPRN PRN no BM 24 12/01/23
gram/118 mL enema (Fleet Enema) hrs after suppository
apixaban 5 mg tablet (Eliquis) 5 mg PO BID #60 tabs 12/06/23
alprazolam 0.5 mg tablet (Xanax) 0.5 mg PO Q6HPRN PRN anxiety 05/13/24
amiodarone 200 mg tablet (Pacerone) 200 mg PO DAILY 05/13/24
citalopram 10 mg tablet 10 mg PO DAILY 05/13/24
loperamide 2 mg tablet (Imodium 2 mg PO Q4HPRN PRN diarrhea 05/13/24
A-D)
therapeutic multivitamin 1 tab PO DAILY 05/13/24
trazodone 50 mg tablet 50 mg PO QPM anxiety 05/13/24
Review of Systems
-
Unable to obtain full review of systems at this time due to: Dementia
History Source: Family, Jail, Transfer Record and Other (hospital record )
Vital Signs
Temp Pulse Resp BP Pulse Ox
98.8 F 51 15 132/65 99
05/13/24 05:25 05/13/24 07:00 05/13/24 07:00 05/13/24 07:00 05/13/24 07:00
Physical Exam
Exam
General: No Apparent Distress and Comfortable
HEENT: Normocephalic and Anicteric
Respiratory: Clear
Cardiac: S1/S2 and Regular Rhythm (sinus bradycardia )
GI: Soft, Tender (mild to moderate tenderness on lower abdominal area) and Other (no guarding, no rebound )
Rectal: Deferred by Provider
Musculoskeletal: No Clubbing, No Cyanosis, No Edema and Other (generalized muscle weakness )
Skin: Warm and Dry
Neuro: Awake, Alert and Oriented (oriented to his name no place or time )
Psych: Calm
Results
WBC 8.5 10^3/uL (4.8-10.8) 05/13/24 05:20
Hgb 11.5 g/dL (13.0-18.0) L 05/13/24 05:20
Hct 34.5 % (39.0-52.0) L 05/13/24 05:20
MCV 94.5 fL (80.0-94.0) H 05/13/24 05:20
Plt Count 169 10^3/uL (130-400) 05/13/24 05:20
Absolute Neuts (auto) 6.9 10^3/uL (1.4-6.5) H 05/13/24 05:20
PT 19.1 Sec (11.4-14.6) H 05/13/24 05:20
INR 1.59 05/13/24 05:20
APTT 31.9 Sec (23.4-35.0) 05/13/24 05:20
Sodium 141 mmol/L (135-145) 05/13/24 05:20
Potassium 4.2 mmol/L (3.5-5.1) 05/13/24 05:20
Chloride 105 mmol/L (98-107) 05/13/24 05:20
Carbon Dioxide 26 mmol/L (22-30) 05/13/24 05:20
BUN 27 mg/dl (9-20) H 05/13/24 05:20
Creatinine 1.2 mg/dL (0.7-1.3) 05/13/24 05:20
Calcium 8.8 mg/dl (8.4-10.2) 05/13/24 05:20
Total Bilirubin 0.8 mg/dl (0.2-1.3) 05/13/24 05:20
AST 22 U/L (17-59) 05/13/24 05:20
ALT 16 U/L (0-50) 05/13/24 05:20
Alkaline Phosphatase 101 U/L (38-126) 05/13/24 05:20
Lipase 17 U/L (23-300) L 05/13/24 05:20
Diagnostic Image Results:
12/01/23 Abd/Pelvis CT
IMPRESSION:
1. MODERATE STERCORAL COLITIS in the DISTAL SIGMOID COLON and RECTUM.
2. LARGE LEFT INGUINAL HERNIA containing most of the sigmoid colon surrounded by inflammation.
3. Large amount of fecal material in the cecum suggesting constipation.
4. No CT evidence for colonic obstruction, ascites, or pneumoperitoneum.
5. 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
6. 1.3 cm urinary bladder calculus.
7. Mild chronic bilateral renal disease.
8. Moderate intrahepatic biliary dilatation.
9. Previous cholecystectomy.
10. Mild to moderate cardiomegaly.
11. Severe discogenic degenerative disease at L5/S1.
Prior GI Procedures: No known EGD or colonoscopy in the past
EGD:
Colonoscopy:
Assessment / Plan
-
The patient is a 84 year old male with a history of A-fib and has been on Eliquis and had recent possibly cardiac syncope along tachycardia about one week ago. He was brought to ER this morning after he had one episode of rectal bleeding at the
[facility]. He has a severe dementia and was not able to give any detail about his rectal bleeding. His son Charli was called to obtain more information he reported that this is the first rectal bleeding for his father and denied any chronic
bowel disease/surgery. His [facility] called his son this morning at 4.30 am and reported this event to him. Additionally, per chart rvw, the patient was diagnosed with Stercoral colitis along significant constipation in December 2023 and was treated
with aggressive bowel regimen.
Assessment/Plan
#Hematochezia possibly form lower GI bleeding likely from diverticulosis vs hemorrhoid/polyps/AVM given history of one episode of bleeding and constipation
-Hgb is likely at baseline after bleeding at 11.5
-Trend hgb Q8H, keep hgb ~8-9 given cardiac problems
-Hold on Eliquis
-No signs/finding for upper GI bleeding-Continue PPI 40 IV mg daily
-Cardio input would be appreciated
-NPO for now except sips and oral meds
-Had a Abd/pel CT with IV contrast in December 2023 showing: stercoral colitis
-Abdominal tenderness on PE -Contrast allergy was noted on his admission/ioidine unknown allergy on the chart - no clear history for allergy- Abd/Pelvis-CT-A was ordered with prep.
-Monitor the patient/ colonoscopy is not considered for now but POA agreed verbally on the phone for colonoscopy and EGD if needed
-Stool studies can be considered if patient has diarrhea (no clear hx of ongoing diarrhea)
-
-
Thank you for consultation and allowing me to participate in the patient's care. Please call the zone supervisor firearms GI physician during the after hours with any questions or concerns.
[2024-05-13 08:49] LABS: Troponin I 0.036 ng/ml
--- NOTE | 2024-05-13 10:25 | CON.CAR ---
Addendum entered and electronically signed by Jhoana Villarreal DO 05/13/24 15:34:
I saw and examined the patient.
The Shade Cutter's note was reviewed and I agree with the note.
Comment: Patient seen and examined with cardiac PA. Chapito is an 84-year-old male with past medical history of dementia, paroxysmal atrial fibrillation maintained on amiodarone, chronic anticoagulation on Eliquis, sinus bradycardia, CAD with prior
stenting, hyperlipidemia and BPH who lives in a NH. He presented to ED 05/13/2024 for evaluation of rectal bleeding. Patient was last seen in outpatient cardiology office in December 2023 and was noted to be bradycardic prompting Amiodarone
reduction to 200 mg once a day and Toprol was discontinued. He had a syncopal episode 05/07/2024 and was found to be in atrial fibrillation with rapid ventricular response however spontaneously converted to sinus rhythm in emergency department.
Cardiology consulted for abnormal cardiac troponin and evaluation of sinus bradycardia in the 40s. Patient is a poor historian not able to give reliable history repeatedly stating 'that this is terrible '. His EKG this admission shows sinus
bradycardia with heart rates 44 bpm. Heme positive stool . Hemoglobin 11.5, troponin 0.036. Urine analysis concerning for possible UTI with culture pending. Patient was provided IV Protonix. Amiodarone and Eliquis placed on hold. He denies any
specific complaints. GI consulted with plan pending
GEN: Frail 84-year-old gentleman with limb contractures
HEENT:mmm
LUNGS: Clear anteriorly bilaterally
CV: Bradycardic. Positive S1-S2. 07/08 SM
ABD: soft, BS+, NT/ND
EXT: No edema. Contractures of bilateral leg
NEURO: Demented, oriented only to self with reduced verbal output
Skin: left heel wound
Plan:
Hematochezia is a with concern for lower GI bleed on Eliquis
-Hemoglobin stable but continuing to trend
-IV Protonix
-Eliquis anticoagulation held
-GI consulted
History of paroxysmal atrial fibrillation/sick sinus syndrome currently in sinus bradycardia with heart rates in the 40s
-Patient essentially bedbound and likely not symptomatic
-Agree with holding amiodarone. Avoid AV julian blocking agents
-Monitor on telemetry. No high degree AV block or significant pauses
Abnormal troponin
-0.036 x 2. Trend to peak. EKG stable and patient denies chest pain
-Suspect nonischemic myocardial injury secondary to GI bleed
-Recent echo noted above. Would not repeat unless significant elevation in troponin on repeat evaluation
History of UTI. Urine culture pending.
Original Note:
Consultation
Consultation Request
Date/Time Consultation Requested: 05/13/2024
Date/Time Consultation Performed: 05/13/2024
Requesting Provider: Dr. Reis
Performing Provider: Aminata Beth PA-C for Dr. Jhoana Villarreal
Reason for Consultation: Bradycardia
Medical History
-
History of Present Illness:
Chapito is an 84-year-old male with past medical history of dementia, paroxysmal atrial fibrillation maintained on amiodarone, chronic anticoagulation on Eliquis, baseline bradycardia, CAD with prior stenting, hyperlipidemia, BPH, dysphagia and
anxiety/depression. He presented to ED 05/13/2024 for evaluation from [facility] with rectal bleeding. Patient was last seen in outpatient cardiology office in December 2023 and was noted to be bradycardic. Amiodarone was reduced
to 200 mg once a day and Toprol was discontinued. He had a syncopal episode 05/07/2024 and was found to be in atrial fibrillation with rapid ventricular response however spontaneously converted to sinus rhythm in emergency department. EKG this
admission shows sinus bradycardia with heart rates 44 bpm. Heme positive stool . Hemoglobin 11.5, troponin 0.036. Urine analysis concerning for possible UTI with culture pending. Patient was provided IV Protonix. Amiodarone and Eliquis placed on
hold. Denies any complaints, however history is difficult to elicit given underlying dementia with reduced verbal output.
PMH:
Paroxysmal atrial fibrillation
Bradycardia/sick sinus syndrome
Chronic anticoagulation on Eliquis
Right bundle branch block
CAD w/ prior remote stenting
Anxiety/depression
HLD
BPH
Bedbound
Colitis
History of UTIs
Past Medical History
Past Medical History: Other (In HPI)
Past Surgical History: Cardiac (remote coronary stent)
Social History
Tobacco: Non-Smoker
Alcohol: None
Drug: None
Living: Prison
Employment: Retired
Family History
Family History: Reviewed & Not Pertinent
Allergies / Home Medications
Allergy/AdvReac Type Severity Reaction Status Date / Time
iodine Allergy Unknown Verified 05/13/24 05:08
�Medication �Instructions �Recorded �Confirmed �Type
acetaminophen 325 mg tablet 650 mg PO BID pain management 12/01/23 05/13/24 History
(Tylenol)
acetaminophen 325 mg tablet 650 mg PO Q4HPRN PRN mild pain 12/01/23 05/13/24 History
(Tylenol)
atorvastatin 10 mg tablet 10 mg PO HS High Cholesterol 12/01/23 05/13/24 History
bisacodyl 10 mg rectal suppository 10 mg IA DAILYPRN PRN no BM 24 12/01/23 05/13/24 History
hours after MOM
cholecalciferol (vitamin D3) 125 125 mcg PO FR Supplement 12/01/23 05/13/24 History
mcg (5,000 unit) tablet (Vitamin
D3)
finasteride 5 mg tablet (Proscar) 5 mg PO DAILY prostate issues 12/01/23 05/13/24 History
magnesium hydroxide 400 mg/5 mL 2,400 mg PO [id number] PRN no BM x 3 12/01/23 05/13/24 History
oral suspension (Milk of Magnesia) days
melatonin 10 mg tablet 10 mg PO HS Sleep 12/01/23 05/13/24 History
sennosides 8.6 mg tablet (Senokot) 8.6 mg PO DAILY Constipation 12/01/23 05/13/24 History
sodium phosphates 19 gram-7 118 ml IA DAILYPRN PRN no BM 24 12/01/23 05/13/24 History
gram/118 mL enema (Fleet Enema) hrs after suppository
apixaban 5 mg tablet (Eliquis) 5 mg PO BID #60 tabs 12/06/23 05/13/24 Rx
alprazolam 0.5 mg tablet (Xanax) 0.5 mg PO Q6HPRN PRN anxiety 05/13/24 05/13/24 History
amiodarone 200 mg tablet (Pacerone) 200 mg PO DAILY 05/13/24 05/13/24 History
citalopram 10 mg tablet 10 mg PO DAILY 05/13/24 05/13/24 History
loperamide 2 mg tablet (Imodium 2 mg PO Q4HPRN PRN diarrhea 05/13/24 05/13/24 History
A-D)
therapeutic multivitamin 1 tab PO DAILY 05/13/24 05/13/24 History
trazodone 50 mg tablet 50 mg PO QPM anxiety 05/13/24 05/13/24 History
Review of Systems
-
Unable to obtain full review of systems at this time due to: Dementia
History Source: Transfer Record and Coordinating Provider
Physical Exam
Vital Signs
Temp Pulse Resp BP Pulse Ox
98.6 F 42 25 126/63 98
05/13/24 09:39 05/13/24 08:30 05/13/24 08:30 05/13/24 08:00 05/13/24 08:30
GEN: No distress, lethargic, in position with contractures of legs
HEENT: supple, anicteric, mmm
LUNGS: Clear anteriorly bilaterally
CV: Reg, S1/S2, no murmur, rub or gallop
ABD: soft, BS+, NT/ND
EXT: No edema, clubbing or cyanosis,
NEURO: Demented, oriented only to self with reduced verbal output
SKIN: No rash,, clubbing or cyanosis, left heel wound
Lab Results
05/13/24 05:20
Troponin I 0.036 ng/ml H* 05/13/24 08:06
Impression / Plan
-
PCP: Dr. Gale Loving
Stockroom Helper: Dr. Ndiaye
Impression:
Presents 05/13/2024 with GIB, hematochezia
Bradycardia
Abnormal troponin
Paroxysmal atrial fibrillation
Bradycardia/sick sinus syndrome
Chronic anticoagulation on Eliquis
Right bundle branch block
CAD w/ prior remote stenting ([facility])
Anxiety/depression
HLD
BPH
History of UTIs
Bedbound
Colitis
Echo 12/05/2023: EF 55 to 60% with normal regional wall motion. Mild concentric LVH. Mild MR/AI. PAP 20-25 mmHg
Plan:
Presents 05/13/2024 with GIB, hematochezia.
-Concern for lower GI bleed, hemoglobin stable at 11.5
-IV Protonix
-Eliquis on hold
-GI consulted
History of paroxysmal atrial fibrillation/sick sinus syndrome with underlying bradycardia with heart rates in the 40s when in sinus rhythm.
-Recent admission for syncope where patient was found to be in A-fib with rapid ventricular response 05/07/2024. Spontaneously converted to sinus rhythm
-Would hold amiodarone at this time given underlying bradycardia. Avoid AV julian blocking agents
-Patient appears to be rather asymptomatic in bradycardia however is more symptomatic when in atrial fibrillation with rapid ventricular response
-Eliquis on hold
-[id number] score 3 (age, CAD).
Abnormal troponin
-0.036 x 2. Trend to peak. EKG stable and patient denies chest pain
-Suspect nonischemic myocardial injury secondary to GI bleed
-Recent echo noted above. Would not repeat unless significant elevation in troponin on repeat evaluation
History of UTI. Urine culture pending.
HPI 05/13/2024
Chapito is an 84-year-old male with past medical history of dementia, paroxysmal atrial fibrillation maintained on amiodarone, chronic anticoagulation on Eliquis, baseline bradycardia, CAD with prior stenting, hyperlipidemia, BPH, dysphagia and
anxiety/depression. He presented to ED 05/13/2024 for evaluation from [facility] with rectal bleeding. Patient was last seen in outpatient cardiology office in December 2023 and was noted to be bradycardic. Amiodarone was reduced
to 200 mg once a day and Toprol was discontinued. He had a syncopal episode 05/07/2024 and was found to be in atrial fibrillation with rapid ventricular response however spontaneously converted to sinus rhythm in emergency department. EKG this
admission shows sinus bradycardia with heart rates 44 bpm. Heme positive stool . Hemoglobin 11.5, troponin 0.036. Urine analysis concerning for possible UTI with culture pending. Patient was provided IV Protonix. Amiodarone and Eliquis placed on
hold. Denies any complaints, however history is difficult to elicit given underlying dementia with reduced verbal output.
Data Reviewed
-
EKG: Report Reviewed by me, Discussed with Physician, Discussed with Nurse and Discussed with Patient
Labs: Labs Reviewed by me, Discussed with Physician, Discussed with Nurse and Discussed with Patient
Old Records: Reviewed
[2024-05-13] MEDS: CELEXA PO ×2 (10:45→10:48)
[2024-05-13] MEDS: PROSCAR PO ×2 (10:46→10:48)
--- NOTE | 2024-05-13 11:27 | PTCARENOTE ---
Recd pt from ED. Agitated confused. Pt having frequent, large, bloody BMs. GI and medical team notified. Pt now in B.L hand mitts as ordered. Large necrotic left heel wound. Pt unable to answer any questions or participate in admission assessment.
[2024-05-13 12:37] LABS: Hematocrit 32.1 % (39.0-52.0); Hemoglobin 10.2 g/dL (13.0-18.0)
[2024-05-13 12:46] LABS: Lactic Acid 2.9 mmol/L (0.7-2.0)
[2024-05-13 12:59] LABS: Troponin I 0.039 ng/ml
--- NOTE | 2024-05-13 13:19 | WOUNDNOTE ---
R HEEL (POSTERIOR LATERAL)
--- NOTE | 2024-05-13 13:21 | WOUNDNOTE ---
[facility] RN note: Patient admitted with GI bleed. Patient admitted from SNF.
See H&P for complete history.
PMH: dementia, a fib (Eliquis), sick sinus syndrome, HTN, dysphagia, depression, anxiety, BPH.
Wound Location and type/assessment: Patient admitted with: R heel unstageable pressure injury with black eschar. +Pedal pulses heard via portable Doppler. Scrotum large and red. Coccyx stage 2 pressure injury. Scabbed abrasion on R perez and R knee.
Linear red abrasion L knee.
Appetite: currently NPO.
Pressure redistribution devices in place: BackTrack air bed. He has fiber filled boot that is soiled.
Plan: Dr. Reis and resident were in who evaluated patient's scrotum and R heel eschar. Dr. Reis approved current care with Betadine and protective dressing. t/c SPD and ordered new heel relief boots (TruVue Lite boots). Patient turned with help
from GLORIA Becerril. Heels off bed with air chair cushion. Folded bath blanket placed between legs. Patient at risk for worsening or additional skin breakdown d/t overall medical condition and leg contractures. Discussed with GLORIA Becerril.
Care plan to be updated and will follow as needed.
Note to case management of equipment requested for discharge: Air mattress at SNF if not already in place.
Recommend follow up at wound care center upon discharge.
[2024-05-13 13:41] LABS: Iron 28 ug/dl (49-181)
[2024-05-13 13:50] LABS: Percent Saturation 12 % (20-50); Total Iron Binding Capacity 228 ug/dl (261-462)
[2024-05-13 15:54] LABS: Vitamin B12 166 pg/ml (239-931)
--- NOTE | 2024-05-13 16:27 | PTCARENOTE ---
Provided update to son, Charli at bedside and daughter Piedad via phone. Pt remains intermittently agitated and anxious. Per Dr. Reis, no need to recheck lactic until tomorrow AM. Trop and H and H will be repeated tonight. vital signs stable.
[2024-05-13] MEDS: DESYREL 50 MG PO (17:16)
--- NOTE | 2024-05-13 17:45 | CM ---
Addendum entered by Angie Travis RN 05/15/24 09:48:
Seen by wound care nurse who recommends air mattress at SNF - Dionna @ [facility] made aware and will order one.
Addendum entered by Angie Travis RN 05/13/24 17:57:
Noting heel wound- seen by wound care nurse.
Original Note:
Patient from [facility] with Hx dementia with Dx Hematochezia is a with concern for lower GI bleed. NPO. Receiving IVF, IV Solucortef. PT Screen; No skilled PT needed. Per nurse; hand mitts, agitated, confused.
Met with patient and his son Charli;
the patient has been residing at [facility] in LTC through [facility]. He is assisted with ADLs and is w/c bound, non-ambulatory. A malcolm lift is used to get the patient OOB to the chair. He no longer is receiving PT. Son says patient has been more
confused the past 3 weeks since he developed a UTI.
The son lives in [place] and daughter Piedad is in [facility].
Plan contact [facility] tomorrow to confirm PLOF and bed hold.
Plan return to [facility] when medically ready.
[2024-05-13] MEDS: SOLU-CORTEF 200 MG IV (19:20)
[2024-05-13] MEDS: MELATONIN 10 MG PO (20:13)
[2024-05-13] MEDS: LIPITOR 10 MG PO (20:13)
[2024-05-13 20:50] LABS: Hemoglobin 10.1 g/dL (13.0-18.0)
[2024-05-13 21:18] LABS: Troponin I 0.035 ng/ml
[2024-05-14] VITALS (13 sets, daily range): BP systolic 119–152; BP diastolic 41–83; BMI 20.4
[2024-05-14] MEDS: SOLU-CORTEF 200 MG IV ×2 (00:07→07:07)
--- NOTE | 2024-05-14 01:04 | PTCARENOTE ---
assumed care of patient, pt is AAOx1- oriented to self only. ANIAK, can be agitated at times when performing care. VSS, contracted legs. bilateral mitts on, pt does attempt to swing at staff during care. condom cath working, pt with iram urine. q2t,
pt did take pills without issues tonight. IV fluids infusing without issues. care ongoing.
[2024-05-14 05:38] LABS: Hematocrit 32.7 % (39.0-52.0); Hemoglobin 10.7 g/dL (13.0-18.0); Mean Corp Hgb Conc. 32.7 g/dL (33.0-37.0); Mean Corpuscular Hgb 31.8 pg (27.0-31.0); Mean Corpuscular Volume 97.3 fL (80.0-94.0); Mean Platelet Volume 9.7 fL (7.4-10.4); Platelet Count 132 10^3/uL (130-400); Red Blood Cell Count 3.36 10^6/uL (4.70-6.10); White Blood Cell Count 5.1 10^3/uL (4.8-10.8)
[2024-05-14 05:45] LABS: Lactic Acid 1.9 mmol/L (0.7-2.0)
--- NOTE | 2024-05-14 05:54 | W.PN.HOSP.TC ---
Addendum entered and electronically signed by Sadia Reis MD 05/14/24 14:15:
# Stage 2 coccyx pressure injury, POA
Addendum entered and electronically signed by Sadia Reis MD 05/14/24 12:50:
I saw and evaluated the patient. I reviewed the resident�s note and agree with findings and plan as documented in the resident�s note.
GIB appeared to have resolved, hence no indication for CT angio.
Monitor Hgb and vital signs.
Continue PPI IV BID.
Continue to hold Eliquis.
Continue to hold amiodarone for bradycardia.
Original Note:
Today's Communication/Plan
-
Hold CTA and monitor
Hold Eliquis and Amiodarone
Follow CBC
NPO with sip for oral meds
Assessment / Plan
Assessment / Plan
IMPRESSION:
This is an 84-year-old male with past medical history of dementia, atrial fibrillation on anticoagulation, sick sinus syndrome with known bradycardia, essential hypertension, dysphagia depression and anxiety presenting to the emergency department
with episode of hematochezia. Found to rectal bleeding at snf and transferred to ED.
ASSESSMENT/PLAN:
#Acute GI Bleed-suspect from diverticulosis given large volume vs hemorrhoids.
-No further bleeding, Hb stable at 10.7.
-Hold Eliquis
-Hold off on CTA, no plans for endoscopic procedure per GI.
-Colonoscopy if necessary.
-Continue IV Protonix.
-GI following
-Monitor CBC.
#Paroxysmal A-fib with RVR/sick sinus syndrome
-Rate controlled on amiodarone, now with sinus bradycardia with heart rates in 40s.
-Recent admission 05/07 with A-fib, spontaneously converted.
-Hold amiodarone
-Cardiology consult.
-Monitor on telemetry.
#Presentation with acute confusion with agitation
-Suspect metabolic encephalopathy secondary to hypoperfusion injury. Other likely etiology include progressed dementia, polypharmacy.
-Continue IV fluid.
-Bilateral mitts.
#Abnormal troponin
- peaked at 0.035.
-Suspect nonischemic myocardial injury with RV strain.
-Trend until peaks.
#Elevated lactate
-Suspect type a lactic acidosis secondary to hypoperfusion injury.
-Continue IV fluid.
-Recheck in a.m.
#Swollen Scrotum
-Scrotal ultrasound reports large left indirect inguinal hernia with loops of sigmoid colon.
-GI consult.
#Right heel wound
-CR right heel in a.m. when patient is more stable to assess for osteomyelitis
#Anemia
-Hb 10.7
-Most likely due to acute blood loss vs anemia of chronic disease
-Check TIBC, transferrin, iron levels, B12.
DVT PPX - SCD
Code Status - Full Code
Anticipated Discharge: > 48 hours
Subjective/Interval History
-
Date of Service: May 14, 2024
Patient seen and examined in the room. Reports no abdominal pain or chest pain today. Further questions not answered due to dementia.
Objective Data
-
Labs:
Laboratory Results
05/13/24 05/14/24 05/14/24
20:44 05:26 05:48
WBC 5.1 Pending
Hgb 10.1 L 10.7 L Pending
Hct 31.0 L 32.7 L Pending
Plt Count 132 D Pending
Sodium Pending Pending
Potassium Pending Pending
Chloride Pending Pending
Carbon Dioxide Pending Pending
BUN Pending Pending
Creatinine Pending Pending
Glucose Pending Pending
Calcium Pending Pending
Total Bilirubin Pending
AST Pending
ALT Pending
Alkaline Phosphatase Pending
Vital Signs:
Vital Signs
Temp Pulse Resp BP Pulse Ox
98.2 F 52 14 131/43 95
05/14/24 03:12 05/14/24 04:00 05/14/24 04:00 05/14/24 04:00 05/14/24 04:00
Review of Systems
-
Unable to obtain full review of systems at this time due to: Dementia
History Source: Patient
All other systems: Reviewed and negative
Cardiac: Reports No Symptoms
Abdomen/GI: Reports No Symptoms
Physical Exam
-
General: No Apparent Distress and Cachectic
HEENT: Normocephalic and Other (Poor dentition)
Respiratory: Clear to Auscultation; Negative Wheezes
Cardiac: Regular Rhythm, S1/S2 and Irregular Rhythm
GI: Soft, Nontender and Nondistended
Skin: Warm
Neuro: Awake
Hematologic / Lymphatic: No Lymphadenopathy
Psych: Calm
Data Reviewed
-
Labs: Labs Reviewed by me
Old Records: Reviewed
[2024-05-14 06:11] LABS: ALT (SGPT) 21 U/L (0-50); AST (SGOT) 44 U/L (17-59); Alkaline Phosphatase 77 U/L (38-126); Blood Urea Nitrogen 30 mg/dl (9-20); Calcium 8.7 mg/dl (8.4-10.2); Carbon Dioxide 22 mmol/L (22-30); Chloride 110 mmol/L (98-107); Glucose 154 mg/dl (70-99); Potassium 4.9 mmol/L (3.5-5.1); Sodium 142 mmol/L (135-145); Total Bilirubin 1.1 mg/dl (0.2-1.3); Total Protein 5.9 g/dl (6.3-8.2); eGFR > 60.00
[2024-05-14] MEDS: BENADRYL 50 MG IV (07:07)
--- NOTE | 2024-05-14 07:40 | W.PN.CARDCBS ---
Addendum entered and electronically signed by Jeremiah Lynn MD 05/14/24 09:34:
I saw and examined the patient.
The BRIDGE MECHANIC or PA's note was reviewed and I agree with the note.
Comment: General: Awake but confused
Neck: Supple, no JVD, HJR, carotids +2 B/L, no bruits bilaterally.
Heart: Non displaced PMI, RRR, no murmurs, No S3, S4, no rubs.
Lungs: Scattered rhonchi
Extremities: No clubbing, cyanosis or edema bilaterally.
Neuro: Awake but confused
Continues with bradycardia but stable from cardiology viewpoint. Continue to hold amiodarone. Eliquis remains on hold with GI bleed. Discussed with nursing
Original Note:
Today's Communication / Plan
-
holding amio. follow on tele
GI determining degree of work up of hematochezia
eliquis on hold
Impression / Plan
-
PCP: Dr. Gale Loving
Addictions Counselor: Dr. Ndiaye
Impression:
Presents 05/13/2024 with GIB, hematochezia
Bradycardia
Elevated troponin, suspected nonischemic myocardial injury
Paroxysmal atrial fibrillation
Bradycardia/sick sinus syndrome
Chronic anticoagulation on Eliquis
Right bundle branch block
CAD w/ prior remote stenting ([facility])
Anxiety/depression
HLD
BPH
History of UTIs
Dementia
Bedbound
Colitis
Echo 12/05/2023: EF 55 to 60% with normal regional wall motion. Mild concentric LVH. Mild MR/AI. PAP 20-25 mmHg
Plan:
-Patient presented with hematochezia, concern for lower GI bleeding
-Hemoglobin relatively stable at 10.7
-Eliquis remains on hold
-GI following. For possible CTA versus colonoscopy pending clinical course and discussions with POA
-Remains in sinus bradycardia with heart rates in the 40s on review of tele overnight. Continue to monitor. Holding outpatient amiodarone at present
-Troponin flat in 0.03 range. Patient resting comfortably. suspected nonischemic myocardial injury
-echo 12/2023 with results as above. Would not repeat at this time
-d/w hospitalist
HPI 05/13/2024
Chapito is an 84-year-old male with past medical history of dementia, paroxysmal atrial fibrillation maintained on amiodarone, chronic anticoagulation on Eliquis, baseline bradycardia, CAD with prior stenting, hyperlipidemia, BPH, dysphagia and
anxiety/depression. He presented to ED 05/13/2024 for evaluation from [facility] with rectal bleeding. Patient was last seen in outpatient cardiology office in December 2023 and was noted to be bradycardic. Amiodarone was reduced
to 200 mg once a day and Toprol was discontinued. He had a syncopal episode 05/07/2024 and was found to be in atrial fibrillation with rapid ventricular response however spontaneously converted to sinus rhythm in emergency department. EKG this
admission shows sinus bradycardia with heart rates 44 bpm. Heme positive stool . Hemoglobin 11.5, troponin 0.036. Urine analysis concerning for possible UTI with culture pending. Patient was provided IV Protonix. Amiodarone and Eliquis placed on
hold. Denies any complaints, however history is difficult to elicit given underlying dementia with reduced verbal output.
Progress Note - Addictions Counselor
Subjective
Date of Service: May 14, 2024
resting comfortably
Objective
Labs:
05/14/24 05:48
05/14/24 05:48
Labs
Hgb Cancelled 05/14/24 05:48
Hct Cancelled 05/14/24 05:48
Plt Count Cancelled 05/14/24 05:48
PT 19.1 Sec (11.4-14.6) H 05/13/24 05:20
INR 1.59 05/13/24 05:20
APTT 31.9 Sec (23.4-35.0) 05/13/24 05:20
Sodium Cancelled 05/14/24 05:48
Potassium Cancelled 05/14/24 05:48
BUN Cancelled 05/14/24 05:48
Creatinine Cancelled 05/14/24 05:48
Glucose Cancelled 05/14/24 05:48
Troponins
05/13/24 05/13/24 05/13/24
05:20 08:06 12:22
Troponin I 0.036 H* 0.036 H* 0.039 H*
05/13/24
20:44
Troponin I 0.035 H*
Vital Signs and I&O:
Vital Signs
Temp Pulse Resp BP Pulse Ox
98.2 F 46 16 140/50 96
05/14/24 03:12 05/14/24 06:00 05/14/24 06:00 05/14/24 06:00 05/14/24 06:00
Vital Signs
Temp Pulse Resp BP Pulse Ox
98.2 F 46 16 140/50 96
05/14/24 03:12 05/14/24 06:00 05/14/24 06:00 05/14/24 06:00 05/14/24 06:00
Physical Exam
Physical Exam
GEN: No distress, resting comfortably
HEENT: supple, mmm
LUNGS: CTA B/L anterolaterally, no wheezes
CV: Reg and darnell, S1/S2, no murmur
ABD: soft, BS+, NT/ND
EXT: No cyanosis, clubbing, edema
NEURO: Gross non-focal
SKIN: Warm, pink, dry. No rash
[2024-05-14] MEDS: NSS (PRESERVATIVE FREE) 10 ML IV (07:43)
[2024-05-14] MEDS: PROTONIX IV 40 MG IV (07:43)
[2024-05-14] MEDS: PROSCAR 5 MG PO (07:49)
[2024-05-14] MEDS: CELEXA 10 MG PO (07:49)
--- NOTE | 2024-05-14 08:18 | PTCARENOTE ---
Assumed care of patient at beginning of this shift from previous RN with b/l mitts in place. Dr Reis in to see patient and updated that patient only had a smear of bm overnight with no blood noted, as per report. No bm this morning so far. Also
notified that patient pre-medicated for CT angio. She discussed with GI via tiger text; CTA cancelled. Remains NPO with NSS infusing at 80ml/hr. Ox1, very anxious; turned per protocol. Patient able to take po meds this morning with sips of water.
See worklist for full assessment and vital signs.
--- NOTE | 2024-05-14 10:08 | W.PN.GI.CBS2 ---
Today's Communication / Plan
-
-Abd/Pelvis-CT-A was cancelled today
Assessment / Plan
-
Impression: The patient is a 84 year old male with a history of A-fib and has been on Eliquis and had recent possibly cardiac syncope along tachycardia about one week ago. He was brought to ER ON 05/13/24 morning after he had one episode of rectal
bleeding at the snf. He has a severe dementia and was not able to give any detail about his rectal bleeding. His son Charli was called to obtain more information and he reported that this is the first rectal bleeding for his father and
denied any chronic bowel disease/surgery. His snf called his son this morning at 4.30 am and reported this event to him. Additionally, per chart rvw, the patient was diagnosed with Stercoral colitis along significant constipation in December
2023 and was treated with aggressive bowel regimen.
Assessment/Plan
#Hematochezia possibly form lower GI bleeding likely from diverticulosis vs hemorrhoid/polyps/AVM given history of one episode of bleeding and constipation
-Maintain 2 large-bore peripheral gauge IVS
-Hgb is 10.7 this morning
-Trend hgb Q8H, keep hgb ~8-9 given cardiac problems
-Hold on Eliquis
-No signs/finding for upper GI bleeding-Continue PPI 40 IV mg daily
-Cardio input appreciated
-NPO for now except sips and oral meds
-Had a Abd/pel CT with IV contrast in December 2023 showing: stercoral colitis
-No on-going rectal bleeding - Abd/Pelvis-CT-A was cancelled today
-Monitor the patient/ colonoscopy is not considered for now but POA agreed verbally on the phone for colonoscopy and EGD if needed
Subjective
Subjective
Date of Service: May 14, 2024
The patient was seen in his bed and was some somnolents. He was seen restrained with hand mitts in his bed. He woke up with verbal warning and denied abdominal pain during PE exam.
Objective
Data Reviewed
Laboratory Data:
Laboratory Results
05/14/24 05:48
05/14/24 05:48
Laboratory Results
PT 19.1 Sec (11.4-14.6) H 05/13/24 05:20
INR 1.59 05/13/24 05:20
APTT 31.9 Sec (23.4-35.0) 05/13/24 05:20
Total Bilirubin 1.1 mg/dl (0.2-1.3) 05/14/24 05:26
AST 44 U/L (17-59) 05/14/24 05:26
ALT 21 U/L (0-50) 05/14/24 05:26
Alkaline Phosphatase 77 U/L (38-126) 05/14/24 05:26
Lipase 17 U/L (23-300) L 05/13/24 05:20
Vital Signs and I&O:
Vital Signs
Temp Pulse Resp BP Pulse Ox
97.8 F 43 15 145/83 97
05/14/24 07:58 05/14/24 08:00 05/14/24 08:00 05/14/24 08:00 05/14/24 08:00
I&O
05/13/24 05/14/24 05/15/24
06:59 06:59 06:59
Output Total 500 / 500
Balance -500 / -500
Physical Exam
Physical Exam
HEENT: Anicteric
Pulmonary: Clear
GI: Soft and Tender (mild to moderate tenderness on abdominal area to palpate )
Extremities: No Edema and Other (generalized muscle weakness )
Neuro: Other (oriented to his name no place or time and he was awake. He was some somnolent/confused this morning. )
--- NOTE | 2024-05-14 10:21 | PTCARENOTE ---
HR continues to be in the 40s; low of 42. Confirmed with both cardiology, Dr Lynn and hospitalilst, Dr Reis, that they are aware. No treatment needed at this time per Dr Lynn.
[2024-05-14] MEDS: NSS 1000 IV ×2 (10:27→21:28)
--- NOTE | 2024-05-14 12:30 | PTCARENOTE ---
Patient ordered cdiff in addition to other stool tests. Reviewed with Dr Butler resident that patient has not had multiple bms and to review with Dr Reis; cdiff cancelled and stool orders updated.
--- NOTE | 2024-05-14 14:12 | PN.CDI ---
CDI
- -
CDI:
Physician Documentation Request
Admit Date: 05/13/24 07:07
Dear Doctor,
Please review the following and provide your response in the progress notes.
Clinical Indicators:
- 05/13 Wound note indicates Stage 2 coccyx pressure injury, POA
Physician documentation of the type and location of wounds is required for compliant documentation. Based on the above clinical findings and your assessment, please provide the following in your progress note:
1. Location of the ulcer/wound, including laterality.
2. Type (etiology) of ulcer/wound:
- Diabetic ulcer
- Arterial (ischemic) ulcer
- Traumatic wound
- Venous stasis ulcer
- Pressure (decubitus) ulcer
- Non-healing surgical wound
- Other
- Unable to determine
Use of terms such as suspected, likely, concern for, or probable (associated with a specific diagnosis that is being evaluated, monitored, or treated as if it exists) are acceptable and can be coded in the inpatient setting, when documented at the
time of discharge.
Thank you,
Wagner Partida RN
CDI Specialist
Please use your independent medical judgment in providing your response.
*Source: National Pressure Ulcer Advisory Panel (NPUAP)
[2024-05-14] MEDS: DESYREL 50 MG PO (17:05)
[2024-05-14] MEDS: LIPITOR 10 MG PO (19:51)
[2024-05-14] MEDS: MELATONIN 10 MG PO (19:51)
[2024-05-15] VITALS (15 sets, daily range): BP systolic 82–182; BP diastolic 28–83
[2024-05-15 05:39] LABS: Hematocrit 31.6 % (39.0-52.0); Hemoglobin 10.2 g/dL (13.0-18.0); Mean Corp Hgb Conc. 32.3 g/dL (33.0-37.0); Mean Corpuscular Hgb 31.4 pg (27.0-31.0); Mean Corpuscular Volume 97.2 fL (80.0-94.0); Mean Platelet Volume 10.1 fL (7.4-10.4); Platelet Count 156 10^3/uL (130-400); Red Blood Cell Count 3.25 10^6/uL (4.70-6.10); Red Cell Dist. Width 14.8 % (11.5-14.5)
--- NOTE | 2024-05-15 05:47 | PTCARENOTE ---
no acute events overnight. pt remains oriented x1- to self only. pt with bilateral mitts on, at times trying to swat away staff. bed alarm on. new condom cath placed during rn hemo dialysis. pt did take pills whole with water without issues. no BM on
nightshift. q2t. care ongoing.
[2024-05-15 06:08] LABS: Blood Urea Nitrogen 31 mg/dl (9-20); Calcium 8.8 mg/dl (8.4-10.2); Carbon Dioxide 26 mmol/L (22-30); Chloride 111 mmol/L (98-107); Glucose 101 mg/dl (70-99); Magnesium 2.1 mg/dl (1.6-2.3); Potassium 4.7 mmol/L (3.5-5.1); Sodium 145 mmol/L (135-145); eGFR > 60.00
--- NOTE | 2024-05-15 07:21 | W.PN.HOSP.TC ---
Addendum entered and electronically signed by Sadia Reis MD 05/15/24 14:07:
I saw and evaluated the patient. I reviewed the resident�s note and agree with findings and plan as documented in the resident�s note.
GI bleed appeared to have resolved, hemoglobin stable at 10.2.
Can continue iv Protonix for now.
Prior to admission Eliquis resumed today, monitor for any recurrent GI bleed.
Persistent bradycardia, but asymptomatic.
Cardiology aware and have signed off. Patient is not a candidate for pacemaker
Urine culture positive. Follow S/S. Per RN, foul urine smell. Patient is demented hence unable to provide history at baseline.
Started ceftriaxone for empiric UTI coverage
Scrotal ultrasound noted inguinal hernia. Outpatient urology eval
Dispo planning.
Original Note:
Today's Communication/Plan
-
Advance diet
Monitor hemoglobin level
Watch out for rebleeding
Assessment / Plan
Assessment / Plan
IMPRESSION:
This is an 84-year-old male with past medical history of dementia, atrial fibrillation on anticoagulation, sick sinus syndrome with known bradycardia, essential hypertension, dysphagia depression and anxiety presenting to the emergency department
with episode of hematochezia. Found to rectal bleeding at [facility] and transferred to ED.
ASSESSMENT/PLAN:
#Acute GI Bleed-suspect from diverticulosis given large volume vs hemorrhoids.
-No further bleeding, Hb stable at 10.2.
-Continue Eliquis per GI.
-Advance diet to regular.
-Colonoscopy if necessary.
-Continue IV Protonix.
-GI following
-Monitor CBC.
#Paroxysmal A-fib with RVR/sick sinus syndrome
-Rate controlled on amiodarone, now with sinus bradycardia with heart rates in 40s.
-Recent admission 05/07 with A-fib, spontaneously converted.
-Hold amiodarone
-Cardiology consult.
-Monitor on telemetry.
#Presentation with acute confusion with agitation
-Suspect metabolic encephalopathy secondary to hypoperfusion injury. Other likely etiology include progressed dementia, polypharmacy.
-Continue IV fluid.
-Bilateral mitts.
#Abnormal troponin
- peaked at 0.035.
-Suspect nonischemic myocardial injury with RV strain.
-Trend until peaks.
#Elevated lactate
-Suspect type a lactic acidosis secondary to hypoperfusion injury.
-Continue IV fluid.
-Recheck in a.m.
#Swollen Scrotum
-Scrotal ultrasound reports large left indirect inguinal hernia with loops of sigmoid colon.
-GI consult.
#Right heel wound
-CR right heel in a.m. when patient is more stable to assess for osteomyelitis
-Wound care
#Stage 1 coccyx pressure injury-present on admission
-Wound care.
#Anemia
-Hb 10.7
-Most likely due to acute blood loss vs anemia of chronic disease
-Check TIBC, transferrin, iron levels, B12.
DVT PPX - SCD
Code Status - Full Code
Anticipated Discharge: > 48 hours
Subjective/Interval History
-
Date of Service: May 15, 2024
Patient seen and examined. Nursing reported no further GI bleed. Pt has been somewhat agitated trying to get out of bed but easily redirected. He reports no abdominal pain or chest pain. Nursing also reports bad smelling urine, and because of
patient's dementia, assessment for acute cystitis cannot be performed and we will start a course of antibiotics with ceftriaxone for suspected complicated UTI. Patient has been cleared for regular solid/thin liquid diet by speech and his diet has
been advanced. PT/OT signed off for lack of goals since patient is nonambulatory. There is a stage I (vs stage II as reported) coccyx pressure injury that was present TUBE COVERER.
Objective Data
-
Labs:
Laboratory Results
05/15/24
05:05
WBC 7.0
Hgb 10.2 L
Hct 31.6 L
Plt Count 156
Sodium 145
Potassium 4.7
Chloride 111 H
Carbon Dioxide 26
BUN 31 H
Creatinine 0.8
Glucose 101 H
Calcium 8.8
Vital Signs:
Vital Signs
Temp Pulse Resp BP Pulse Ox
97.7 F 41 15 98/80 96
05/15/24 05:20 05/15/24 06:00 05/15/24 06:00 05/15/24 06:00 05/14/24 22:00
I&O
05/14/24 05/15/24 05/16/24
06:59 06:59 06:59
Intake Total 1320 / 1320
Output Total 1050 / 1050
Balance 270 / 270
Review of Systems
-
Unable to obtain full review of systems at this time due to: Dementia
History Source: Patient
All other systems: Reviewed and negative
Cardiac: Reports No Symptoms
Abdomen/GI: Reports No Symptoms
Physical Exam
-
General: No Apparent Distress and Cachectic
HEENT: Normocephalic and Other (Poor dentition)
Respiratory: Clear to Auscultation; Negative Wheezes
Cardiac: Regular Rhythm, S1/S2 and Irregular Rhythm
GI: Soft, Nontender and Nondistended
Skin: Warm and Other
Neuro: Awake
Hematologic / Lymphatic: No Lymphadenopathy
Psych: Calm
[2024-05-15] MEDS: PROTONIX IV 40 MG IV (07:30)
[2024-05-15] MEDS: PROSCAR 5 MG PO (07:30)
[2024-05-15] MEDS: CELEXA 10 MG PO (07:30)
[2024-05-15] MEDS: XANAX 0.5 MG PO (07:30)
[2024-05-15] MEDS: NSS (PRESERVATIVE FREE) 10 ML IV (07:31)
[2024-05-15] MEDS: ROCEPHIN 1000 MG IV (08:43)
[2024-05-15] MEDS: STERILE WATER FOR INJECTION 10 ML IV (08:43)
--- NOTE | 2024-05-15 09:20 | PTOTSP ---
Speech Language Pathology
Pt seen for clinical bedside swallow evaluation. P.O. trials of regular solids, puree, and thin liquids provided from breakfast tray. Adequate mastication, bolus formation, and A-P transit noted with no oral residue. Pt frequently taking
consecutive sips with no difficulty. PRODUCTION WOOD CRAFTSMAN pulled straw from pt's mouth accidentally while actively drinking, which resulted in coughing episode. Suspect this was secondary to incoordination from straw being removed, as no other coughing episodes
noted.
WBC WNL, no chest imaging completed this admission, and pt on regular solids/thin liquids at baseline.
Recommend:
(1) Regular solids/thin liquids
(2) General aspiration precautions
(3) Meds as tolerated
(4) PRODUCTION WOOD CRAFTSMAN to sign off. Please reconsult as indicated
--- NOTE | 2024-05-15 09:25 | PTOTSP ---
Reviewed chart. 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 There are no skilled PT needs or goals. Will sign off.
--- NOTE | 2024-05-15 09:30 | CM ---
Patient from [facility] with Hx dementia. Room air. Receiving IV Abx. Per nurse; remains Ox1, bilateral mitts on.
Spoke with Dionna, [facility]; she confirms patient resides there in LTC on an MA bed hold. Dionna confirms patient is w/c bound. She was made aware that patient is not receiving PT/OT here. The for nurse report [phone], fax
[phone].
Plan return to [facility] when medically ready.
--- NOTE | 2024-05-15 10:16 | W.PN.GI.CBS2 ---
Addendum entered and electronically signed by Ailyn Herring, DO 05/15/24 11:44:
Okay to resume anticoagulation
Original Note:
Today's Communication / Plan
-
.
Assessment / Plan
-
Impression: The patient is a 84 year old male with a history of A-fib and has been on Eliquis and had recent possibly cardiac syncope along tachycardia about one week ago. He was brought to ER on 05/13/24 morning after he had one episode of rectal
bleeding at the intermediate. He has a severe dementia and was not able to give any detail about his rectal bleeding. His son Charli was called to obtain more information and he reported that this is the first rectal bleeding for his father and
denied any chronic bowel disease/surgery. His intermediate called his son at 4.30 am on 05/13/24 and reported this event to him. Additionally, per chart rvw, the patient was diagnosed with Stercoral colitis along significant constipation in December
2023 and was treated with aggressive bowel regimen. The patient was scheduled for Abd CTA on 05/13/24 with preop for a possibility of contrast allergy and it was cancelled yesterday because the patient did not have any further bloody BM since
05/13/24.
Assessment/Plan
#Hematochezia possibly form lower GI bleeding likely from diverticulosis vs hemorrhoid/polyps/AVM given history of one episode of bleeding and constipation
-Maintain 2 large-bore peripheral gauge IVS
-Hgb is 10.2 this morning and likely junito since admission on 05/13/24
-Trend hgb Q8H, keep hgb ~8-9 given cardiac problems
-Hold on Eliquis
-No on-going rectal bleeding - Abd/Pelvis-CT-A was cancelled
-Had a Abd/pel CT with IV contrast in December 2023 showing: stercoral colitis
-Cardio is holding amiodarone due bradycardia
-No signs/finding for upper GI bleeding/ no abdominal pain during PE-Continue PPI 40 IV mg daily
-Monitor the patient/ No plans for endoscopic procedures for now but POA agreed verbally on the phone for colonoscopy and EGD if needed
We will follow up the patient.
Subjective
Subjective
Date of Service: May 15, 2024
Patient was seen in his bed awake, alert and oriented to only his name. This morning he was not somnolent and conservative and mentioning about his family members with their names.
Objective
Data Reviewed
Laboratory Data:
Laboratory Results
05/15/24 05:05
05/15/24 05:05
Laboratory Results
PT 19.1 Sec (11.4-14.6) H 05/13/24 05:20
INR 1.59 05/13/24 05:20
APTT 31.9 Sec (23.4-35.0) 05/13/24 05:20
Magnesium 2.1 mg/dl (1.6-2.3) 05/15/24 05:05
Total Bilirubin 1.1 mg/dl (0.2-1.3) 05/14/24 05:26
AST 44 U/L (17-59) 05/14/24 05:26
ALT 21 U/L (0-50) 05/14/24 05:26
Alkaline Phosphatase 77 U/L (38-126) 05/14/24 05:26
Lipase 17 U/L (23-300) L 05/13/24 05:20
Vital Signs and I&O:
Vital Signs
Temp Pulse Resp BP Pulse Ox
98.0 F 43 8 138/45 97
05/15/24 07:52 05/15/24 08:00 05/15/24 08:00 05/15/24 08:00 05/15/24 08:00
I&O
05/14/24 05/15/24 05/16/24
06:59 06:59 06:59
Intake Total 1320 / 1320
Output Total 1050 / 1050
Balance 270 / 270
Physical Exam
Physical Exam
Cardiology: S1, S2 and Other (bradycardia )
Pulmonary: Clear
GI: Soft, Non Distended and Non Tender
Extremities: No Edema
Neuro: Other (severe dementia and generalized weakness )
--- NOTE | 2024-05-15 10:22 | W.PN.CARDCBS ---
Addendum entered and electronically signed by Jeremiah Lynn MD 05/15/24 11:00:
I saw and examined the patient.
The CYCLING INSTRUCTOR or PA's note was reviewed and I agree with the note.
Comment: Awake and confused
Neck: Supple, no JVD, HJR, carotids +2 B/L, no bruits bilaterally.
Heart: Non displaced PMI, RRR, no murmurs, No S3, S4, no rubs.
Lungs: Poor effort
Extremities: No clubbing, cyanosis or edema bilaterally.
Neuro: Awake and confused
Stable cardiology status. Remains bradycardic but is stable rhythm. Continue to hold amiodarone and will discontinue. GI to determine when Eliquis is to be resumed. No further recommendations. Discussed with nursing. Will sign off, call with
questions.
Original Note:
Today's Communication / Plan
-
remains SB, continue amio washout
check TSH
eliquis remains on hold
hospitalist to discuss code status with POA
Impression / Plan
-
PCP: Dr. Gale Loving
Television News Reporter: Dr. Ndiaye
Impression:
Presents 05/13/2024 with GIB, hematochezia
Bradycardia
Elevated troponin, suspected nonischemic myocardial injury
Paroxysmal atrial fibrillation
Bradycardia/sick sinus syndrome
Chronic anticoagulation on Eliquis
Right bundle branch block
CAD w/ prior remote stenting (?[facility])
Anxiety/depression
HLD
BPH
History of UTIs
Dementia
Bedbound
Colitis
Echo 12/05/2023: EF 55 to 60% with normal regional wall motion. Mild concentric LVH. Mild MR/AI. PAP 20-25 mmHg
Plan:
-Patient presented with hematochezia, concern for lower GI bleeding. plan for conservative mgmt per GI at this time
-Hemoglobin relatively stable at 10.2
-Eliquis remains on hold
-Remains in sinus bradycardia with heart rates in the 30-50s on review of tele overnight. No pauses or evidence of high grade av block. Continue to monitor. Asymptomatic. OP amio discontinued. avoid av julian blocking agents
-check TSH
-Troponin flat in 0.03 range. Patient resting comfortably. suspected nonischemic myocardial injury
-echo 12/2023 with results as above. Would not repeat at this time
-currently a full code. DNR appears appropriate. d/w hospitalist via TT who will reach out to POA to discuss
-d/w nursing
HPI 05/13/2024
Chapito is an 84-year-old male with past medical history of dementia, paroxysmal atrial fibrillation maintained on amiodarone, chronic anticoagulation on Eliquis, baseline bradycardia, CAD with prior stenting, hyperlipidemia, BPH, dysphagia and
anxiety/depression. He presented to ED 05/13/2024 for evaluation from [facility] with rectal bleeding. Patient was last seen in outpatient cardiology office in December 2023 and was noted to be bradycardic. Amiodarone was reduced
to 200 mg once a day and Toprol was discontinued. He had a syncopal episode 05/07/2024 and was found to be in atrial fibrillation with rapid ventricular response however spontaneously converted to sinus rhythm in emergency department. EKG this
admission shows sinus bradycardia with heart rates 44 bpm. Heme positive stool . Hemoglobin 11.5, troponin 0.036. Urine analysis concerning for possible UTI with culture pending. Patient was provided IV Protonix. Amiodarone and Eliquis placed on
hold. Denies any complaints, however history is difficult to elicit given underlying dementia with reduced verbal output.
Progress Note - Television News Reporter
Subjective
Date of Service: May 15, 2024
no complaints
Objective
Labs:
05/15/24 05:05
05/15/24 05:05
Labs
Hgb 10.2 g/dL (13.0-18.0) L 05/15/24 05:05
Hct 31.6 % (39.0-52.0) L 05/15/24 05:05
Plt Count 156 10^3/uL (130-400) 05/15/24 05:05
PT 19.1 Sec (11.4-14.6) H 05/13/24 05:20
INR 1.59 05/13/24 05:20
APTT 31.9 Sec (23.4-35.0) 05/13/24 05:20
Sodium 145 mmol/L (135-145) 05/15/24 05:05
Potassium 4.7 mmol/L (3.5-5.1) 05/15/24 05:05
BUN 31 mg/dl (9-20) H 05/15/24 05:05
Creatinine 0.8 mg/dL (0.7-1.3) 05/15/24 05:05
Glucose 101 mg/dl (70-99) H 05/15/24 05:05
Troponins
05/13/24 05/13/24 05/13/24
05:20 08:06 12:22
Troponin I 0.036 H* 0.036 H* 0.039 H*
05/13/24
20:44
Troponin I 0.035 H*
Vital Signs and I&O:
Vital Signs
Temp Pulse Resp BP Pulse Ox
98.0 F 43 8 138/45 97
05/15/24 07:52 05/15/24 08:00 05/15/24 08:00 05/15/24 08:00 05/15/24 08:00
Vital Signs
Temp Pulse Resp BP Pulse Ox
98.0 F 43 8 138/45 97
05/15/24 07:52 05/15/24 08:00 05/15/24 08:00 05/15/24 08:00 05/15/24 08:00
Intake & Output
05/13/24 05/14/24 05/15/24 05/16/24
07:59 07:59 07:59 07:59
Intake Total 1320 / 1320
Output Total 500 / 500 550 / 550
Balance -500 / -500 770 / 770
Physical Exam
Physical Exam
GEN: No distress, awake, oriented to self
HEENT: supple, anicteric, mmm, eomi
LUNGS: CTA B/L anterolaterally, no wheezes
CV: Reg and darnell, S1/S2, no murmur
ABD: soft, BS+, NT/ND
EXT: No cyanosis, clubbing. 1+ edema of B/L LE
NEURO: Gross non-focal
SKIN: Warm, pink, dry. No rash
--- NOTE | 2024-05-15 12:08 | PTOTSP ---
orders received, chart reviewed. noted from rehabilitation caseworker notes, pt is malcolm lift at baseline, requires total care for ADLs. no acute OT needs at this time, will sign off.
[2024-05-15 13:18] LABS: TSH Reflex To Free T4 1.44 uIU/ml (0.47-4.68)
[2024-05-15] MEDS: APRESOLINE 5 MG IV (14:55)
--- NOTE | 2024-05-15 14:58 | PTCARENOTE ---
Dr. Reddy made aware of patients BP of 182/68. IV hydralazine ordered. Confirmed with MD ZHU to give med with HR in low 40's. Hydralazine given per AUG. Care ongoing at this time.
--- NOTE | 2024-05-15 16:36 | PTCARENOTE ---
Patient AOx1 (self). Patient anxious at times. Xanax given per AUG PRN order. Bed alarm in place and audible. B/L hand mitts in place. Patient incontinent to bowel and bladder. Condom cath draining yellow urine. Sinus darnell on monitor and patient
asymptomatic. Dr. Reis and Dr. Reddy made aware. No new orders at this time. Poor appetite. Wound care completed per order. Call galeas within reach, bed in lowest position, and wheels locked.
[2024-05-15] MEDS: DESYREL 50 MG PO (17:17)
[2024-05-15] MEDS: ELIQUIS 5 MG PO (21:04)
[2024-05-15] MEDS: MELATONIN 10 MG PO (21:05)
[2024-05-15] MEDS: LIPITOR 10 MG PO (21:05)
[2024-05-16] VITALS (19 sets, daily range): BP systolic 107–185; BP diastolic 51–105
[2024-05-16] MEDS: XANAX 0.5 MG PO ×2 (00:13→14:38)
--- NOTE | 2024-05-16 01:41 | PTCARENOTE ---
Pt appearing to be anxious during the nigh. Pt talking out loud to self contiguously with an upset tone, redirection attempted unsuccessfully. Pt PRN medication given. Pt remains in mitts (see work list). Bed alarm on. Assessment care and vitals as
charted.
[2024-05-16 04:29] LABS: Hematocrit 29.4 % (39.0-52.0); Hemoglobin 9.6 g/dL (13.0-18.0); Mean Corp Hgb Conc. 32.7 g/dL (33.0-37.0); Mean Corpuscular Volume 94.8 fL (80.0-94.0); Mean Platelet Volume 9.8 fL (7.4-10.4); Platelet Count 142 10^3/uL (130-400); Red Cell Dist. Width 15.1 % (11.5-14.5); White Blood Cell Count 3.8 10^3/uL (4.8-10.8)
[2024-05-16] MEDS: APRESOLINE 5 MG IV (04:29)
[2024-05-16 04:49] LABS: Blood Urea Nitrogen 27 mg/dl (9-20); Calcium 8.7 mg/dl (8.4-10.2); Carbon Dioxide 26 mmol/L (22-30); Chloride 111 mmol/L (98-107); Glucose 96 mg/dl (70-99); Potassium 4.1 mmol/L (3.5-5.1); Sodium 141 mmol/L (135-145); eGFR > 60.00
--- NOTE | 2024-05-16 07:38 | W.PN.HOSP.TC ---
Addendum entered and electronically signed by Sadia Reis MD 05/16/24 13:17:
I saw and evaluated the patient. I reviewed the resident�s note and agree with findings and plan as documented in the resident�s note.
GI bleed has resolved. Hemoglobin somewhat stable.
Patient has been off amiodarone for several days due to sinus bradycardia, and today went into A-fib RVR. Amiodarone was re-instituted.
Cardiology again does not feel the need for any pacemaker for his bradycardia.
IV ceftriaxone de-escalated to Ancef for UTI.
Remove hand mitts and monitor behavioral disturbance in setting of severe dementia.
Discharge planning
Original Note:
Today's Communication/Plan
-
Replete vitamin B12 and iron.
ECG for A-fib
Cardiology consult
Restart amiodarone
Follow CBC
Switch antibiotics to cefazolin
Assessment / Plan
Assessment / Plan
IMPRESSION:
This is an 84-year-old male with past medical history of dementia, atrial fibrillation on anticoagulation, sick sinus syndrome with known bradycardia, essential hypertension, dysphagia depression and anxiety presenting to the emergency department
with episode of hematochezia. [facility] to rectal bleeding at [facility] and transferred to ED.
ASSESSMENT/PLAN:
#Acute GI Bleed-suspect from diverticulosis given large volume vs hemorrhoids.
-No further bleeding.
-Continue Eliquis per GI.
-Diet advanced to regular.
-Colonoscopy if necessary.
-Continue IV Protonix.
-GI following
-Monitor CBC.
#Chronic anemia
-Iron/vitamin B12 deficiency anemia
-Hb down 9.6
-Most likely from occult blood loss vs malnutrition
-Replete iron and vitamin B12.
#Paroxysmal A-fib with RVR/sick sinus syndrome
-Rate converted to A-fib this a.m. with HR in 100s.
-Amiodarone previously stopped for bradycardia.
-Cardiology reconsulted.
-Restart 100 mg amiodarone per cardiology.
-Monitor on telemetry.
#Persistent bradycardia
-Asymptomatic.
-Amiodarone discontinued by cardiology, signed off.
-Patient not a candidate for pacemaker.
#UTI
-Positive urine culture with pansensitive E. coli.
-Patient with dementia unable to provide information for adequate characterization of UTI.
-Empiric ceftriaxone switched to cefazolin for antibiotics sensitivity.
#Metabolic encephalopathy
-Multifactorial�progressive dementia, polypharmacy, hypoperfusion injury.
-Continue IV fluid.
-Bilateral mitts.
#Abnormal troponin secondary to nonischemic myocardial injury with RV strain
-Peaked at 0.035.
-Suspect nonischemic myocardial injury with RV strain.
-Trend until peaks.
#Elevated lactate
-Suspect type a lactic acidosis secondary to hypoperfusion injury.
# Left indirect inguinal hernia.
-Noted on scrotal ultrasound-no signs of strangulation.
-Follow-up with outpatient urology.
#Right heel wound
-CR right heel in a.m. when patient is more stable to assess for osteomyelitis
-Wound care
#Stage 1 coccyx pressure injury-present on admission
-Wound care.
DVT PPX - SCD
Code Status - Full Code
Anticipated Discharge: > 48 hours
Subjective/Interval History
-
Date of Service: May 16, 2024
Patient reconverted to A-fib, will get an EKG and reconsult cardiology. Patient does not have chest pain and is currently not in any cardiopulmonary distress.
Objective Data
-
Labs:
Laboratory Results
05/16/24
04:11
WBC 3.8 L
Hgb 9.6 L
Hct 29.4 L
Plt Count 142
Sodium 141
Potassium 4.1
Chloride 111 H
Carbon Dioxide 26
BUN 27 H
Creatinine 0.8
Glucose 96
Calcium 8.7
Vital Signs:
Vital Signs
Temp Pulse Resp BP Pulse Ox
97.5 F 41 9 150/51 96
05/16/24 07:31 05/16/24 04:44 05/16/24 04:44 05/16/24 04:44 05/16/24 04:44
I&O
05/15/24 05/16/24 05/17/24
06:59 06:59 06:59
Intake Total 1320 / 1320 700 / 700
Output Total 1050 / 1050 500 / 500
Balance 270 / 270 200 / 200
Review of Systems
-
Unable to obtain full review of systems at this time due to: Dementia
History Source: Patient
All other systems: Reviewed and negative
Cardiac: Reports No Symptoms
Abdomen/GI: Reports No Symptoms
Physical Exam
-
General: No Apparent Distress and Cachectic
HEENT: Normocephalic and Other (Poor dentition)
Respiratory: Clear to Auscultation; Negative Wheezes
Cardiac: Regular Rhythm, S1/S2 and Irregular Rhythm
GI: Soft, Nontender and Nondistended
Skin: Warm and Other
Neuro: Awake
Hematologic / Lymphatic: No Lymphadenopathy
Psych: Calm
Data Reviewed
-
Labs: Labs Reviewed by me
Old Records: Reviewed
--- NOTE | 2024-05-16 07:40 | PTCARENOTE ---
B/L mitts removed. Safety maintained. Call galeas within reach, bed in lowest position, wheels locked, bed alarm on and audible. Care ongoing at this time.
[2024-05-16] MEDS: CYANOCOBALAMIN 1000 MCG IM (09:05)
[2024-05-16] MEDS: ANCEF 5 IV ×2 (09:07→16:53)
[2024-05-16] MEDS: ELIQUIS 5 MG PO ×2 (09:09→20:34)
[2024-05-16] MEDS: CELEXA 10 MG PO (09:09)
[2024-05-16] MEDS: PROSCAR 5 MG PO (09:10)
[2024-05-16] MEDS: NSS (PRESERVATIVE FREE) 10 ML IV (09:10)
[2024-05-16] MEDS: FEOSOL 325 MG PO ×2 (09:10→20:34)
[2024-05-16] MEDS: PROTONIX IV 40 MG IV (09:11)
--- NOTE | 2024-05-16 09:13 | PTCARENOTE ---
At 0750 approximately this morning, patient converted from sinus darnell to a fib with HR in low 100's. Patient asymptomatic at this time. Patient resting comfortably in bed. Dr. Reis and Dr. Reddy made aware. EKG ordered and completed. Cardiology
consult placed by resident. Care ongoing at this time.
[2024-05-16] MEDS: ROCEPHIN IV (09:29)
[2024-05-16] MEDS: STERILE WATER FOR INJECTION IV (09:29)
--- NOTE | 2024-05-16 09:56 | W.PN.CARDCBS ---
Addendum entered and electronically signed by Kevin Ndiaye MD 05/16/24 12:05:
I saw and examined the patient.
The Bridge Game Director's note was reviewed and I agree with the note.
Comment:
GEN: No distress, awake, Ox2
HEENT: supple, anicteric, mmm
LUNGS: scatt rhonchi
CV: Irreg, S1/S2, 1/6 syst LSB, no gallop
ABD: soft, BS+, NT/ND
EXT: No edema
NEURO: Gross non-focal
SKIN: No rash
Plan:
Heart rates are now elevated in atrial fibrillation somewhat. Will restart amiodarone 100 mg daily.
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
Continue Eliquis. Hemoglobin at 9.6. Continue to follow.
Original Note:
Today's Communication / Plan
-
back on eliquis. concern for high risk to rebleed
amiodarone 100mg daily
may need to allow degree of permissive tachycardia
Impression / Plan
-
PCP: Dr. Gale Loving
Manager Hospitality: Dr. Ndiaye
Impression:
Presents 05/13/2024 with GIB, hematochezia
Bradycardia
Elevated troponin, suspected nonischemic myocardial injury
Paroxysmal atrial fibrillation
Bradycardia/sick sinus syndrome
Chronic anticoagulation on Eliquis
Right bundle branch block
CAD w/ prior remote stenting ([facility])
Anxiety/depression
HLD
BPH
History of UTIs
Dementia
Bedbound
Colitis
Echo 12/05/2023: EF 55 to 60% with normal regional wall motion. Mild concentric LVH. Mild MR/AI. PAP 20-25 mmHg
Plan:
-reconsulted as patient noted to go into afib this morning. HRs ~100s upon review of tele
-limited options given darnell in SR. will resume po amiodarone at lower dose of 100mg daily
-presented with hematochezia, with plan for conservative mgmt per GI. back on eliquis. hgb 9.6. concern for risk for rebleeding
-may need to allow for degree of permissive tachycardia. patient asymptomatic
-TSH WNL
-Troponin flat in 0.03 range. Patient resting comfortably. suspected nonischemic myocardial injury
-echo 12/2023 with results as above. Would not repeat at this time
-currently a full code. goal of care discussions ongoing through primary service. DNR would be appropriate
HPI 05/13/2024
Chapito is an 84-year-old male with past medical history of dementia, paroxysmal atrial fibrillation maintained on amiodarone, chronic anticoagulation on Eliquis, baseline bradycardia, CAD with prior stenting, hyperlipidemia, BPH, dysphagia and
anxiety/depression. He presented to ED 05/13/2024 for evaluation from [facility] with rectal bleeding. Patient was last seen in outpatient cardiology office in December 2023 and was noted to be bradycardic. Amiodarone was reduced
to 200 mg once a day and Toprol was discontinued. He had a syncopal episode 05/07/2024 and was found to be in atrial fibrillation with rapid ventricular response however spontaneously converted to sinus rhythm in emergency department. EKG this
admission shows sinus bradycardia with heart rates 44 bpm. Heme positive stool . Hemoglobin 11.5, troponin 0.036. Urine analysis concerning for possible UTI with culture pending. Patient was provided IV Protonix. Amiodarone and Eliquis placed on
hold. Denies any complaints, however history is difficult to elicit given underlying dementia with reduced verbal output.
Progress Note - Manager Hospitality
Subjective
Date of Service: May 16, 2024
without complaints. confused
Objective
Labs:
05/16/24 04:11
05/16/24 04:11
Labs
Hgb 9.6 g/dL (13.0-18.0) L 05/16/24 04:11
Hct 29.4 % (39.0-52.0) L 05/16/24 04:11
Plt Count 142 10^3/uL (130-400) 05/16/24 04:11
PT 19.1 Sec (11.4-14.6) H 05/13/24 05:20
INR 1.59 05/13/24 05:20
APTT 31.9 Sec (23.4-35.0) 05/13/24 05:20
Sodium 141 mmol/L (135-145) 05/16/24 04:11
Potassium 4.1 mmol/L (3.5-5.1) 05/16/24 04:11
BUN 27 mg/dl (9-20) H 05/16/24 04:11
Creatinine 0.8 mg/dL (0.7-1.3) 05/16/24 04:11
Glucose 96 mg/dl (70-99) 05/16/24 04:11
Troponins
05/13/24 05/13/24
12:22 20:44
Troponin I 0.039 H* 0.035 H*
Vital Signs and I&O:
Vital Signs
Temp Pulse Resp BP Pulse Ox
97.5 F 103 18 125/94 96
05/16/24 07:31 05/16/24 09:29 05/16/24 09:29 05/16/24 09:29 05/16/24 09:29
Vital Signs
Temp Pulse Resp BP Pulse Ox
97.5 F 103 18 125/94 96
05/16/24 07:31 05/16/24 09:29 05/16/24 09:29 05/16/24 09:29 05/16/24 09:29
Intake & Output
05/14/24 05/15/24 05/16/24 05/17/24
07:59 07:59 07:59 07:59
Intake Total 1320 / 1320 700 / 700
Output Total 500 / 500 550 / 550 500 / 500
Balance -500 / -500 770 / 770 200 / 200
Physical Exam
Physical Exam
GEN: No distress, awake, oriented to self
HEENT: supple, anicteric, mmm, eomi
LUNGS: CTA B/L anterolaterally, no wheezes
CV: Irreg, S1/S2, no murmur
ABD: soft, BS+, NT/ND
EXT: No cyanosis, clubbing. trace edema of B/L LE
NEURO: Gross non-focal
SKIN: Warm, pink, dry. No rash
[2024-05-16] MEDS: PACERONE 100 MG PO (09:57)
--- NOTE | 2024-05-16 13:18 | PTCARENOTE ---
Patients HR dropped to the 40's for a brief time then went back into the 120's. Patient remains in a fib. Isamar BEEBE made aware. Care ongoing at this time.
--- NOTE | 2024-05-16 13:45 | CM ---
Patient from [facility] with Hx dementia. Room air. Receiving IV Abx, PO Amiodarone restarted today. PT/OT; Therapy not warranted. Per nursing; remains confused, forgetful. Receiving wound care.
Spoke with nurse Benedict; patient's mitts were able to be removed today, and per nurse patient may be ready for d/c tomorrow.
Met with patient who was alert and conversing however unable to follow the conversation about possible return to SNF soon. Family not present.
Spoke with Dionna, [facility]; provided clinical update. They are able to accept the patient back tomorrow if he is medically ready. The ph for nurse report [phone], fax [phone].
Plan contact son when d/c date known.
Plan return to [facility] when medically ready.
--- NOTE | 2024-05-16 16:57 | PTCARENOTE ---
Patient AOx1 (self). Patient with increased anxiety towards the end of shift. Xanax given per AUG PRN order. Redirection attempted and patient uncooperative. Bed alarm in place and audible. Patient incontinent to bladder. Condom cath draining yellow
urine. A fib on monitor with periods of bradycardia. Isamar Reis made aware. No new orders at this time. Wound care completed per order. Call galeas within reach, bed in lowest position, and wheels locked.
[2024-05-16] MEDS: DESYREL 50 MG PO (17:00)
[2024-05-16] MEDS: LIPITOR 10 MG PO (23:16)
[2024-05-16] MEDS: MELATONIN 10 MG PO (23:16)
[2024-05-17] VITALS (23 sets, daily range): BP systolic 89–211; BP diastolic 38–108
[2024-05-17] MEDS: ANCEF 5 IV (01:41)
--- NOTE | 2024-05-17 04:13 | PTCARENOTE ---
Pt appeared to get sleep over nigh. 2-3 hours at a time. Respirations even unlabored. Pt HR remaining in 30's-40's. No Mitts needed over night. Assessment care and vitals as charted. Bed alarm on.
[2024-05-17 05:24] LABS: Hematocrit 32.3 % (39.0-52.0); Hemoglobin 10.7 g/dL (13.0-18.0); Mean Corp Hgb Conc. 33.1 g/dL (33.0-37.0); Mean Corpuscular Hgb 31.6 pg (27.0-31.0); Mean Corpuscular Volume 95.3 fL (80.0-94.0); Mean Platelet Volume 10.6 fL (7.4-10.4); Platelet Count 150 10^3/uL (130-400); Red Blood Cell Count 3.39 10^6/uL (4.70-6.10); Red Cell Dist. Width 14.9 % (11.5-14.5); White Blood Cell Count 3.5 10^3/uL (4.8-10.8)
[2024-05-17 06:36] LABS: Blood Urea Nitrogen 20 mg/dl (9-20); Calcium 8.5 mg/dl (8.4-10.2); Carbon Dioxide 26 mmol/L (22-30); Chloride 109 mmol/L (98-107); Estimated Creatinine Clearance 62 ml/min; Glucose 95 mg/dl (70-99); Potassium 4.1 mmol/L (3.5-5.1); Sodium 142 mmol/L (135-145); eGFR > 60.00
--- NOTE | 2024-05-17 07:34 | W.PN.HOSP.TC ---
Addendum entered and electronically signed by Sadia Reis MD 05/17/24 13:54:
I saw and evaluated the patient. I reviewed the resident�s note and agree with findings and plan as documented in the resident�s note.
GI bleed has resolved. Hemoglobin mildly down trended during hospital course, can check outpatient CBC with result to PCP.
Mood stable off restraint for more than 24 hours.
Reinstituted amiodarone due to A-fib RVR.
Continue amiodarone 100 mg daily per card.
Continue Augmentin for complicated UTI, total antibiotic course 14 days.
Discharge back to [facility]
Original Note:
Today's Communication/Plan
-
Continue ABX
Continue hydralazine
Outpatient urology follow-up
Dispo planning
Assessment / Plan
Assessment / Plan
IMPRESSION:
This is an 84-year-old male with past medical history of dementia, atrial fibrillation on anticoagulation, sick sinus syndrome with known bradycardia, essential hypertension, dysphagia depression and anxiety presenting to the emergency department
with episode of hematochezia. Found to rectal bleeding at [facility] and transferred to ED.
ASSESSMENT/PLAN:
#Acute GI Bleed-suspect from diverticulosis given large volume vs hemorrhoids.
-No further bleeding.
-Continue Eliquis per GI.
-Tolerating Regular diet.
-Aspiration precautions.
-Continue IV Protonix.
-GI appreciated
-Discharge planning
#Chronic anemia-Iron/vitamin B12 deficiency anemia
-Hb stable at 10.7 s/p B12 and Fe supplementation.
-Suspect malnutrition vs occult blood loss.
-Replete iron and vitamin B12.
#Paroxysmal A-fib with RVR/sick sinus syndrome
-Heart rate noted, telemetry reviewed.
-Remains on 100 mg amiodarone daily for A-fib.
-Not a candidate for PM per cardio.
-Discontinue telemetry per cardiology.
-Remains full code, Code status should be reconsidered by POA.
-Essential hypertension.
-Hydralazine increased to 3 times daily.
#Persistent bradycardia
-Asymptomatic.
-Amiodarone restarted at lower dose 100 mg daily.
-Patient not a candidate for pacemaker.
#UTI
-Positive urine culture with pansensitive E. coli.
-Patient with dementia unable to provide information for adequate characterization of UTI.
-Transition cefazolin to Augmentin to complete 12 extra days.
#Metabolic encephalopathy
-Multifactorial�progressive dementia, polypharmacy, hypoperfusion injury.
-Continue IV fluid.
-Bilateral mitts.
#Abnormal troponin secondary to nonischemic myocardial injury with RV strain
-Peaked at 0.035.
-Suspect nonischemic myocardial injury with RV strain.
-Trend until peaks.
#Elevated lactate
-Resolved
-Suspect type A lactic acidosis secondary to hypoperfusion injury.
#Left indirect inguinal hernia.
-Noted on scrotal ultrasound-no signs of strangulation.
-Follow-up with outpatient urology.
#Right heel wound
-CR right heel in a.m. when patient is more stable to assess for osteomyelitis
-Wound care
#Stage 1 coccyx pressure injury-present on admission
-Wound care.
DVT PPX - SCD
Code Status - Full Code
Anticipated Discharge: Today
Subjective/Interval History
-
Date of Service: May 17, 2024
I have seen and examined patient at bedside, calm and sleepy. Overnight, patient was reported to be anxious and moderately agitated which resolved with 0.5 mg Xanax. His heart rate has been labile, and he is currently maintained on 100 mg
amiodarone. His mitts has been removed in anticipation for discharge today.
Objective Data
-
Labs:
Laboratory Results
05/17/24 05/17/24
05:02 05:59
WBC 3.5 L
Hgb 10.7 L
Hct 32.3 L
Plt Count 150
Sodium Cancelled 142
Potassium Cancelled 4.1
Chloride Cancelled 109 H
Carbon Dioxide Cancelled 26
BUN Cancelled 20
Creatinine Cancelled 0.8
Glucose Cancelled 95
Calcium Cancelled 8.5
Vital Signs:
Vital Signs
Temp Pulse Resp BP Pulse Ox
97.2 F 44 14 171/83 95
05/17/24 03:00 05/17/24 06:01 05/17/24 06:01 05/17/24 06:01 05/16/24 19:55
I&O
05/16/24 05/17/24 05/18/24
06:59 06:59 06:59
Intake Total 700 / 700 940 / 940
Output Total 500 / 500 800 / 800
Balance 200 / 200 140 / 140
Review of Systems
-
Unable to obtain full review of systems at this time due to: Dementia
History Source: Patient
All other systems: Reviewed and negative
Cardiac: Reports No Symptoms
Abdomen/GI: Reports No Symptoms
Physical Exam
-
General: No Apparent Distress and Cachectic
HEENT: Normocephalic and Other (Poor dentition)
Respiratory: Clear to Auscultation; Negative Wheezes
Cardiac: Regular Rhythm, S1/S2 and Irregular Rhythm
GI: Soft, Nontender and Nondistended
Skin: Warm and Other
Neuro: Awake
Hematologic / Lymphatic: No Lymphadenopathy
Psych: Calm
Data Reviewed
-
Labs: Labs Reviewed by me
Old Records: Reviewed
--- NOTE | 2024-05-17 07:51 | W.PN.CARDCBS ---
Addendum entered and electronically signed by Jeremiah Lynn MD 05/17/24 11:07:
I saw and examined the patient.
The PHYSICAL THERAPY AID or PA's note was reviewed and I agree with the note.
Comment: Unresponsive
Neck: Supple, no JVD, HJR, carotids +2 B/L, no bruits bilaterally.
Heart: Non displaced PMI, RRR, no murmurs, No S3, S4, no rubs.
Lungs: Poor effort
Abdomen: Normal bowel sounds, soft, non-tender, non-distended.
Extremities: No clubbing, cyanosis or edema bilaterally.
Neuro: Unresponsive
Back in sinus rhythm. Continue amiodarone 100 mg daily.
Would discontinue monitoring with no plans for pacemaker implantation given severe dementia
Will sign off, call with questions
Original Note:
Today's Communication / Plan
-
continue amiodarone 100mg daily
consider discontinuation of tele, patient asymptomatic with darnell or tachycardia
continue eliquis follow for recurrent gi bleeding
agree with addition of hydralazine for BP control
Impression / Plan
-
PCP: Dr. Gale Loving
Driver License Examiner: Dr. Ndiaye
Impression:
Presents 05/13/2024 with GIB, hematochezia
Bradycardia
Elevated troponin, suspected nonischemic myocardial injury
Paroxysmal atrial fibrillation
Bradycardia/sick sinus syndrome
Chronic anticoagulation on Eliquis
Right bundle branch block
CAD w/ prior remote stenting (?[facility])
Anxiety/depression
HLD
BPH
History of UTIs
Dementia
Bedbound
Colitis
Echo 12/05/2023: EF 55 to 60% with normal regional wall motion. Mild concentric LVH. Mild MR/AI. PAP 20-25 mmHg
Plan:
-Restarted amiodarone at lower dose of 100 mg daily 05/16 due to recurrence of atrial fibrillation with heart rates in 100s yesterday. Patient back in sinus bradycardia on review of telemetry this morning. Patient remains asymptomatic and is
essentially bedbound
-Consider discontinuation of telemetry.
-presented with hematochezia, with plan for conservative mgmt per GI. back on eliquis. concern for risk for rebleeding, but appears to be tolerating thus far
-Troponin flat in 0.03 range. Patient resting comfortably. suspected nonischemic myocardial injury
-echo 12/2023 with results as above. Would not repeat at this time
-Blood pressure is elevated. Agree with addition of p.o. hydralazine as per primary service
-currently a full code. goal of care discussions ongoing through primary service. DNR would be appropriate
-Discussed with nursing
HPI 05/13/2024
Chapito is an 84-year-old male with past medical history of dementia, paroxysmal atrial fibrillation maintained on amiodarone, chronic anticoagulation on Eliquis, baseline bradycardia, CAD with prior stenting, hyperlipidemia, BPH, dysphagia and
anxiety/depression. He presented to ED 05/13/2024 for evaluation from [facility] with rectal bleeding. Patient was last seen in outpatient cardiology office in December 2023 and was noted to be bradycardic. Amiodarone was reduced
to 200 mg once a day and Toprol was discontinued. He had a syncopal episode 05/07/2024 and was found to be in atrial fibrillation with rapid ventricular response however spontaneously converted to sinus rhythm in emergency department. EKG this
admission shows sinus bradycardia with heart rates 44 bpm. Heme positive stool . Hemoglobin 11.5, troponin 0.036. Urine analysis concerning for possible UTI with culture pending. Patient was provided IV Protonix. Amiodarone and Eliquis placed on
hold. Denies any complaints, however history is difficult to elicit given underlying dementia with reduced verbal output.
Progress Note - Driver License Examiner
Subjective
Date of Service: May 17, 2024
Resting comfortably, no complaints
Objective
Labs:
05/17/24 05:02
05/17/24 05:59
Labs
Hgb 10.7 g/dL (13.0-18.0) L 05/17/24 05:02
Hct 32.3 % (39.0-52.0) L 05/17/24 05:02
Plt Count 150 10^3/uL (130-400) 05/17/24 05:02
PT 19.1 Sec (11.4-14.6) H 05/13/24 05:20
INR 1.59 05/13/24 05:20
APTT 31.9 Sec (23.4-35.0) 05/13/24 05:20
Sodium 142 mmol/L (135-145) 05/17/24 05:59
Potassium 4.1 mmol/L (3.5-5.1) 05/17/24 05:59
BUN 20 mg/dl (9-20) 05/17/24 05:59
Creatinine 0.8 mg/dL (0.7-1.3) 05/17/24 05:59
Glucose 95 mg/dl (70-99) 05/17/24 05:59
Vital Signs and I&O:
Vital Signs
Temp Pulse Resp BP Pulse Ox
98.1 F 44 14 171/83 95
05/17/24 07:30 05/17/24 06:01 05/17/24 06:01 05/17/24 06:01 05/16/24 19:55
Vital Signs
Temp Pulse Resp BP Pulse Ox
98.1 F 44 14 171/83 95
05/17/24 07:30 05/17/24 06:01 05/17/24 06:01 05/17/24 06:01 05/16/24 19:55
Intake & Output
05/14/24 05/15/24 05/16/24 05/17/24
07:59 07:59 07:59 07:59
Intake Total 1320 / 1320 700 / 700 940 / 940
Output Total 500 / 500 550 / 550 500 / 500 800 / 800
Balance -500 / -500 770 / 770 200 / 200 140 / 140
Physical Exam
Physical Exam
GEN: No distress, resting comfortably
HEENT: supple, mmm
LUNGS: CTA B/L anterolaterally, no wheezes
CV: Reg and darnell, S1/S2, no murmur
ABD: soft, BS+, NT/ND
EXT: No cyanosis, clubbing. trace edema of B/L LE
NEURO: Gross non-focal
SKIN: Warm, pink, dry. No rash
[2024-05-17] MEDS: PROSCAR 5 MG PO (08:41)
[2024-05-17] MEDS: CELEXA 10 MG PO (08:41)
[2024-05-17] MEDS: ELIQUIS 5 MG PO (08:41)
[2024-05-17] MEDS: FEOSOL 325 MG PO (08:41)
[2024-05-17] MEDS: PACERONE 100 MG PO (08:41)
[2024-05-17] MEDS: APRESOLINE 10 MG PO (08:42)
[2024-05-17] MEDS: PROTONIX IV 40 MG IV (08:42)
[2024-05-17] MEDS: NSS (PRESERVATIVE FREE) 10 ML IV (08:42)
[2024-05-17] MEDS: XANAX 0.5 MG PO (08:48)
[2024-05-17] MEDS: AUGMENTIN 875 MG/125 MG 1 TABLET PO (10:30)
--- NOTE | 2024-05-17 11:18 | PTCARENOTE ---
Addendum entered by Benedict Cope RN 05/17/24 16:49:
Report given to nurse at [facility]. VSS, BP 114/58, HR still 40s NSB. Patient and son notified of discharge. IV and tele removed. Pickup time 5pm.
Addendum entered by Benedict Cope RN 05/17/24 16:20:
Patient BP 90/50 manual, HR still NSB 35-50, mentation the same. MD notified. Adjustments made to future hydralazine orders. Continuing to monitor.
Addendum entered by Benedict Cope RN 05/17/24 13:58:
Patient has been calm and cooperative. BP stable with hydralazine. MD aware. HR NSB. Cleared for DC today. Pickup time scheduled for 1700. Continuing to monitor. Son updated and at bedside.
Original Note:
Patient initially very agitated this morning, PRN xanax given, patient currently resting and cooperative. NSB in 40s, MDs aware. BPs elevated, hydralazine started today. RA, 98%. Bed alarm on. Continuing to closely monitor patient. Update provided
to daughter.
--- NOTE | 2024-05-17 11:26 | W.DCSUMMARY ---
Discharge Summary
Discharge Data
Date of Admission: 05/13/24
Date of Discharge: 05/17/24
-
Pending Results: No
Hospital Course
Discharging Physician : Sadia Reis MD ; Zia Reddy MD
Disposition : SNF
Primary care physician : Wilfrid Hansen I.,
Principal Discharge diagnosis :
Acute GI bleed
Metabolic encephalopathy
Chronic anemia
Paroxysmal A-fib with RVR
Sick sinus syndrome
Essential hypertension
Persistent bradycardia
Nonischemic myocardial injury with RV strain
Left indirect inguinal hernia
Right heel wound
Stage I coccyx pressure injury
Hospital Course :
84-year-old male with PMH of A-fib on Eliquis, advanced dementia, sick sinus syndrome with known bradycardia, essential hypertension, depression and anxiety who presented to ED on 05/13/2024 with hematochezia and confusion (baseline unknown) from
SNF. While in the ED, his blood pressure was 111/50, pulse 39, O2 sat 97% on room air. His troponin was 0.036 and lactate 2.8, hemoglobin 11.5 INR 1.5, and platelet count 169,000. Due to concerns for bleeding risks, patient's Eliquis was held and
he was admitted for further evaluation and management.
While in the hospital, patient was seen in consultation with cardiology and gastroenterology. His EKG showed marked sinus bradycardia with left axis deviation and RBBB. Patient was started on IV Protonix and his amiodarone was held and he was
monitored on telemetry. His troponin peaked at 0.039, lactic acidosis resolved, his bleeding stopped and there was no indication for further evaluation with CTA. On further evaluation of his chronic anemia, patient was found to have iron
deficiency and vitamin B12 deficiency which were both repleted. Patient acutely went back to A-fib, and was restarted on amiodarone at a lower dose of 100 mg daily. His Eliquis was also restarted with no further evidence of bleeding. He continued
to have high blood pressure which responded to hydralazine, and his hydralazine has been increased to 3 times daily.
Condition on discharge: Patient is awake, and has been evaluated to be medically stable for discharge back to SNF. His hemoglobin has mildly trended down during his hospital stay and has been given a prescription for CBC to be rechecked by PCP in
less than 1 week, and he should be evaluated by outpatient urology.
Important imaging findings :
Scrotal ultrasound 05/13/2024:
There is a large left indirect inguinal hernia extending into the left side of the scrotum containing a large amount of sigmoid colon. There is a small amount of fluid in the hernia sac.
RIGHT TESTICLE: Not visualized.
LEFT TESTICLE: Not visualized.
IMPRESSION:
LARGE LEFT INDIRECT INGUINAL HERNIA extending into the left side of the scrotum containing loops of sigmoid colon.
Discharge Plan
-
Patient Disposition: [facility]/SNF
Discharge Diagnosis/Procedures: Acute GI bleed
Metabolic encephalopathy
Chronic anemia
Paroxysmal A-fib with RVR
Sick sinus syndrome
Essential hypertension
Persistent bradycardia
Nonischemic myocardial injury with RV strain
Left indirect inguinal hernia
Right heel wound
Stage I coccyx pressure injury
Condition: Fair
Diet: Low Sodium
Activity: With assistance
Driving Restrictions: No driving
Bathing Restrictions: None
Activity Restrictions/Additional Instructions:
Wound Care Instructions
Coccyx ulcer-clean with saline, apply Calazime ointment BID, cover with abd pad secured with silicone tape or foam dressing as needed for protection.
R heel eschar-swab with Betadine daily, cover with abd pad or foam dressing secured with stockinet.
Elevate heels off bed (i.e.TruVue lite boots as tolerated); air chair cushion under heels/boots
pillow between legs
Air Mattress
turning schedule
pressure redistributing chair cushion (i.e. Roho, Air chair cushion)
Follow up with wound cardiac care nurse or at wound care center call for an appointment.
Referrals:
Wilfrid Hansen DO [Family Provider] - in less than 1 week
Rahul Garrison MD [Active] - in two to three weeks (Left indirect inguinal hernia)
Prescriptions:
New
hydralazine 10 mg Tablet
10 mg PO TID Qty: 0 0RF
amoxicillin-pot clavulanate 875-125 mg Tablet
1 tab PO Q12 12 Days Qty: 0 0RF
ferrous sulfate [FeroSul] 325 mg (65 mg iron) Tablet
325 mg PO BID Qty: 0 0RF
amiodarone [Pacerone] 100 mg Tablet
100 mg PO DAILY Qty: 0 0RF
cyanocobalamin (vitamin B-12) 100 mcg tablet
100 mcg PO DAILY Qty: 30 0RF
Continued
sennosides [Senokot] 8.6 mg Tablet
8.6 mg PO DAILY
acetaminophen [Tylenol] 325 mg Tablet
650 mg PO Q4HPRN PRN (Reason: mild pain)
acetaminophen [Tylenol] 325 mg Tablet
650 mg PO BID
atorvastatin 10 mg Tablet
10 mg PO HS
magnesium hydroxide [Milk of Magnesia] 400 mg/5 mL Suspension
2,400 mg PO [id number] PRN (Reason: no BM x 3 days)
bisacodyl 10 mg Suppository
10 mg MI DAILYPRN PRN (Reason: no BM 24 hours after MOM)
Fleet Enema 19-7 gram/118 mL Enema
118 ml MI DAILYPRN PRN (Reason: no BM 24 hrs after suppository)
finasteride [Proscar] 5 mg Tablet
5 mg PO DAILY
cholecalciferol (vitamin D3) [Vitamin D3] 125 mcg (5,000 unit) Tablet
125 mcg PO FR
melatonin 10 mg Tablet
10 mg PO HS
Eliquis 5 mg Tablet
5 mg PO BID Qty: 60 0RF
trazodone 50 mg Tablet
50 mg PO QPM
citalopram 10 mg Tablet
10 mg PO DAILY
loperamide [Imodium A-D] 2 mg Tablet
2 mg PO Q4HPRN PRN (Reason: diarrhea)
alprazolam [Xanax] 0.5 mg Tablet
0.5 mg PO Q6HPRN PRN (Reason: anxiety)
therapeutic multivitamin Tablet
1 tab PO DAILY
Discontinued
amiodarone [Pacerone] 200 mg tablet
200 mg PO DAILY
Discharge Orders:
Discharge Patient (As Directed); Ordered 05/17/24
Ordered By: Zia Reddy
Discharge Date and Time
Print Language: GREENLANDIC
[2024-05-17] MEDS: APRESOLINE 10 MG IV (12:57)
--- NOTE | 2024-05-17 15:21 | CM ---
Addendum entered by Dionna Durham 05/17/24 16:37:
Correct Report Number
Report [id number]
Original Note:
Patient has been cleared for discharge today and plan is to return to [facility]. tammie carrero go by ambulance, patient's son Charli is aware of transfer back to [facility] today.
Plan; [facility]
Report [phone]
.
== END 2024-05-17 17:00 | DRG 377 ==
LOC: IMU 07:07
PROVIDERS: Nurse Practitioner Family; Student in an Organized Health Care Education/Training Program; ADMITTING PHYSICIAN Internal Medicine; ATTENDING PHYSICIAN Internal Medicine; CONSULT PHYSICIAN Internal Medicine; EMERGENCY PHYSICIAN Student in an Organized Health Care Education/Training Program; FAMILY PHYSICIAN Internal Medicine; OTHER PHYSICIAN Internal Medicine Cardiovascular Disease
DX: K57.91 Diverticulosis of intestine, part unspecified, without perforation or abscess with bleeding (principal); G93.41 Metabolic encephalopathy; E87.20 Acidosis, unspecified; F03.C3 Unspecified dementia, severe, with mood disturbance; F03.C4 Unspecified dementia, severe, with anxiety; F03.C18 Unspecified dementia, severe, with other behavioral disturbance; I5A Non-ischemic myocardial injury (non-traumatic); D62 Acute posthemorrhagic anemia; N39.0 Urinary tract infection, site not specified; F32.A Depression, unspecified; I11.9 Hypertensive heart disease without heart failure; I45.10 Unspecified right bundle-branch block; K40.90 Unilateral inguinal hernia, without obstruction or gangrene, not specified as recurrent; N32.0 Bladder-neck obstruction; I25.10 Atherosclerotic heart disease of native coronary artery without angina pectoris; N40.0 Benign prostatic hyperplasia without lower urinary tract symptoms; I49.5 Sick sinus syndrome; E78.00 Pure hypercholesterolemia, unspecified; D51.9 Vitamin B12 deficiency anemia, unspecified; I48.0 Paroxysmal atrial fibrillation; B96.20 Unspecified Escherichia coli [E. coli] as the cause of diseases classified elsewhere; L89.151 Pressure ulcer of sacral region, stage 1; R13.10 Dysphagia, unspecified; N50.89 Other specified disorders of the male genital organs; Z60.2 Problems related to living alone; Z66 Do not resuscitate; Z79.01 Long term (current) use of anticoagulants; Z95.5 Presence of coronary angioplasty implant and graft; Z87.440 Personal history of urinary (tract) infections; Z74.01 Bed confinement status; Z91.041 Radiographic dye allergy status; Z90.49 Acquired absence of other specified parts of digestive tract
CPT/HCPCS: 76870; 80048; 80053; 81003; 81015; 82607; 82728; 83540; 83550; 83605; 83690; 83735; 84443; 84484; 85014; 85018; 85025; 85027; 85610; 85730; 86850; 86900; 86901; 87070; 87077; 87086; 87088; 87186; 92610; 93005; 93976; 96361; 96374; 99285

== ENCOUNTER 2024-10-21 19:48 | Inpatient (IN) | payer MEDICARE, SELFPAY ==
[2024-10-21] VITALS (8 sets, daily range): BP systolic 102–135; BP diastolic 66–94; BMI 22.7
[2024-10-21 15:33] LABS: ALT (SGPT) 18 U/L (0-50); AST (SGOT) 20 U/L (17-59); Albumin 3.1 g/dl (3.5-5.0); Alkaline Phosphatase 97 U/L (38-126); Blood Urea Nitrogen 92 mg/dl (9-20); Calcium 8.8 mg/dl (8.4-10.2); Carbon Dioxide 23 mmol/L (22-30); Chloride 109 mmol/L (98-107); Glucose 179 mg/dl (70-99); Potassium 4.5 mmol/L (3.5-5.1); Sodium 144 mmol/L (135-145); Total Bilirubin 0.9 mg/dl (0.2-1.3); Total Protein 5.8 g/dl (6.3-8.2); eGFR 18.86
--- NOTE | 2024-10-21 15:41 | ED.GENMED ---
History of Present Illness
General
Chief Complaint: Fatigue
Source: patient and previous hospital records
Exam Limitations: altered mental status and dementia
Time Seen by Provider: 10/21/24 15:09
History of Present Illness
History of Present Illness:
84-year-old male from a local residential presents with 'lethargy' evaluated the patient has stable vital signs dry mucous membranes he looked at me I asked him his name he said Chapito, I reviewed his prior records, he suffers from severe dementia,
he offers no complaints
Past History
Past History
ED Past Medical History: Arrthythmia, HTN and Other (Dementia)
ED Past Surgical History: None
Social History
Tobacco: Non-smoker
Alcohol: None
Phy Exam
Physical Exam
Physical Exam:
Physical Exam
General: Lethargic ill-appearing
Neck: Dry lips and mucous
Heart: Regular
Lungs: Diminished breath sounds
Abdomen: Nontender
Neuro: Globally weak knows his name tracks to voice
Skin: no rash
Psychiatric: Unable to
Extremities: no edema.
Course
Orders/Labs/Results
Orders:
Orders
10/21/24 14:49
Electrocardiogram (*1) Urgent
Reason for Study: Tachycardia
10/21/24 14:50
EKG- Treatment ONCE
10/21/24 15:06
CMP [Comprehensive Metabolic Panel] Urgent
Complete Blood Count/No Diff Urgent
10/21/24 15:09
Urinalysis Reflex To Culture Urgent
10/21/24 15:27
0.9% Sodium Chloride 1000 ml [Nss] 1,000 ml IV BOLUS
CR Chest - 2 Views Urgent
Comment:
Reason For Exam: confusion
10/21/24 15:50
Goode Placement- Treatment ONCE
Reason for insertion: Acute Retention
10/21/24 15:53
CT Abd/pel Without Iv Or Oral Urgent
Comment:
Reason For Exam: arf
Piperacillin/Tazo 2.25 Gram [Zosyn] 2.25 grams in 50 ml IV NOW
Abnormal Lab Results
10/21/24
15:06
WBC 40.9 H* 10^3/uL
(4.8-10.8)
RBC 3.14 L 10^6/uL
(4.70-6.10)
Hgb 9.9 L g/dL
(13.0-18.0)
Hct 29.2 L %
(39.0-52.0)
MCH 31.5 H pg
(27.0-31.0)
Plt Count 83 L 10^3/uL
(130-400)
MPV 11.5 H fL
(7.4-10.4)
Chloride 109 H mmol/L
(98-107)
BUN 92 H mg/dl
(9-20)
Creatinine 3.1 H mg/dL
(0.7-1.3)
Glucose 179 H mg/dl
(70-99)
Total Protein 5.8 L g/dl
(6.3-8.2)
Albumin 3.1 L g/dl
(3.5-5.0)
10/21/24 15:06
10/21/24 15:06
Vital Signs
Initial and Last Documented VS:
Initial Vital Signs
Temp Pulse Resp BP Pulse Ox
98.9 F 103 23 102/82 99
10/21/24 14:51 10/21/24 14:51 10/21/24 14:51 10/21/24 14:51 10/21/24 14:51
Last Documented Vital Signs
Temp Pulse Resp BP Pulse Ox
98.9 F 105 20 102/82 99
10/21/24 14:51 10/21/24 15:30 10/21/24 15:30 10/21/24 14:51 10/21/24 14:51
MDM/Problems Addressed
Differential Diagnosis Includes:
UTI dehydration electrolyte abnormality sepsis syndrome
MDM/Problems Addressed:
Confusion
Chronic conditions affecting care: Neurological disorder
Acute Exacerbation and/or Progression of Chronic Illness: Neurological disorder
*Radiology
Radiology exam reviewed: preliminary read by ED provider
*Pulse Oximetry
Patient hypoxic: no
*EKG
Interpreted by ED Provider?: Yes
Interpretation: abnormal
Comparison EKG: no comparison EKG present
Heart Rate: 78
Rate: normal
Rhythm: sinus
Ischemia: non-specific ST changes
*Insurance Operations Rep Interpretation
Rate: normal
Interpretation: normal
Heart Rate: 78
Rhythm: sinus
*Critical Care Note
Total Time (30-74mins, 75-104mins- exclusive of procedures): 32
Update Note
Update Note:
Update labs noted significant leukocytosis acute renal insufficiency will ask RN to place Goode check urine urine culture blood cultures, chest x-ray will check CT of the abdomen pelvis to look for any obstructive lesions patient will require
admission
ED Attending Note
-
Portions of this chart may have been created with voice recognition software.� Occasional wrong word or��sound alike� substitutions may have occurred due to the inherent limitations of voice recognition software.
Discharge Plan
Departure
Prescriptions:
No Action
sennosides [Senokot] 8.6 mg Tablet
8.6 mg PO DAILY
acetaminophen [Tylenol] 325 mg Tablet
650 mg PO Q4HPRN PRN (Reason: mild pain)
acetaminophen [Tylenol] 325 mg Tablet
650 mg PO BID
atorvastatin 10 mg Tablet
10 mg PO HS
magnesium hydroxide [Milk of Magnesia] 400 mg/5 mL Suspension
2,400 mg PO [id number] PRN (Reason: no BM x 3 days)
bisacodyl 10 mg Suppository
10 mg RI DAILYPRN PRN (Reason: no BM 24 hours after MOM)
Fleet Enema 19-7 gram/118 mL Enema
118 ml RI DAILYPRN PRN (Reason: no BM 24 hrs after suppository)
finasteride [Proscar] 5 mg Tablet
5 mg PO DAILY
cholecalciferol (vitamin D3) [Vitamin D3] 125 mcg (5,000 unit) Tablet
125 mcg PO FR
melatonin 10 mg Tablet
10 mg PO HS
Eliquis 5 mg Tablet
5 mg PO BID Qty: 60 0RF
trazodone 50 mg Tablet
50 mg PO QPM
citalopram 10 mg Tablet
10 mg PO DAILY
loperamide [Imodium A-D] 2 mg Tablet
2 mg PO Q4HPRN PRN (Reason: diarrhea)
alprazolam [Xanax] 0.5 mg Tablet
0.5 mg PO Q6HPRN PRN (Reason: anxiety)
therapeutic multivitamin Tablet
1 tab PO DAILY
amoxicillin-pot clavulanate 875-125 mg Tablet
1 tab PO Q12 12 Days Qty: 0 0RF
ferrous sulfate [FeroSul] 325 mg (65 mg iron) Tablet
325 mg PO BID Qty: 0 0RF
amiodarone [Pacerone] 100 mg Tablet
100 mg PO DAILY Qty: 0 0RF
cyanocobalamin (vitamin B-12) 100 mcg tablet
100 mcg PO DAILY Qty: 30 0RF
hydralazine 10 mg tablet
10 mg PO BID Qty: 60 0RF
Rx Instructions:
hold for SBP < 110
Referrals:
Wilfrid Hansen I., DO [Family Provider] -
Interventions
Interventions:
*Risk Screen - Suicide Last Done: 10/21/24 14:51
*General Assessment Last Done: 10/21/24 14:51
*Neglect/Abuse Screening Last Done: 10/21/24 14:51
*ED- Fall Risk Assessment Last Done: 10/21/24 15:11
Discharge Date and Time
Print Language: ANGUILLAN
[2024-10-21] MEDS: NSS 1000 IV ×2 (15:45→20:59)
[2024-10-21 15:47] LABS: Hematocrit 29.2 % (39.0-52.0); Hemoglobin 9.9 g/dL (13.0-18.0); Mean Corp Hgb Conc. 33.9 g/dL (33.0-37.0); Mean Corpuscular Hgb 31.5 pg (27.0-31.0); Mean Platelet Volume 11.5 fL (7.4-10.4); Platelet Count 83 10^3/uL (130-400); Red Blood Cell Count 3.14 10^6/uL (4.70-6.10); White Blood Cell Count 40.9 10^3/uL (4.8-10.8)
[2024-10-21 16:34] LABS: Urine Albumin 2+ (Neg - Trace); Urine Bilirubin Negative (Negative); Urine Character Clear (Clear); Urine Color Yellow; Urine Glucose Negative (Negative); Urine Ketone Negative (Negative); Urine Leukocyte 3+ (Negative); Urine Nitrite Negative (Negative); Urine Occult Blood 4+ (Negative); Urine Urobilinogen Negative (Neg - 1+)
[2024-10-21 17:01] LABS: Urine White Cell >100 /HPF (0-5)
[2024-10-21 17:02] LABS: Urine Bacteria Many (Negative)
[2024-10-21] MEDS: ZOSYN 50 IV (18:48)
--- NOTE | 2024-10-21 19:32 | HPS.HSE ---
Addendum entered and electronically signed by Clarice Mcfarlane MD 10/21/24 20:31:
I personally performed a history and physical exam of the patient and discussed management with the resident. I reviewed the resident's note and agree with the documented findings and plan of care HPI/CC.
GENERAL: chronically ill appearing male in no apparent distress--sleeping but arousable not oriented
HEENT: NC/AT--nasal polyp noted vs thickened nasal septum--dry mucus membranes
HEART: irreg irreg --rate appropriate for clinical picture
LUNGS : clear to auscultation bilaterally
ABDOM: soft, nontender, nondistended, + bowel sounds
EXT: no cyanosis, clubbing, or edema
NEUROLOGIC: apparent dementia
: woods placed in ED
Severe sepsis with leukocytosis and thrombocytopenia due to possible urinary tract infection--UA appears source (Based on previous admissions he has had urine cultures positive for Escherichia coli and Proteus mirabilis)--CXR neg--blood cultures
pending--agree with zosyn--IMU admission--check lactate--IVF--follow labs
acute kidney injury --likely prerenal cause from sepsis/dehydration from suspected urinary tract infection- Creatinine level is 3.1, baseline is around 1.1--cont woods and IVF--if no improvement, consider renal consult--renal dose meds
Paroxysmal atrial fibrillation-- Patient's EKG shows atrial fibrillation with a ventricular rate of 110- Renally dosed Eliquis- Continue amiodarone
Severe dementia--not oriented--PT/OT/speech--cont citalopram, trazadone
anemia (HGB 9.9)--likely of chronic disease--no signs of active bleeding--check iron, ferritin, TIBC, %sat, B12, folate--HGB likely to drop with hydration--transfuse if less than 7
essential HTN--cont meds as able with parameters
BPH- Continue finasteride
Hyperlipidemia--Continue atorvastatin
Full code
Original Note:
Family Physician
-
Family Physician: Wilfrid Hansen
Chief Complaint
-
Lethargy
History of Present Illness
Patient is a 84-year-old male, full code with a past medical history of arrhythmia, hypertension, dementia, BPH, oropharyngeal dysphagia [facility] after one of the aides noticed that he looked lethargic and very dry. Patient has
severe dementia and is unable to provide an accurate history.
Medical History
Past Medical History
Past Medical History: Reports Arrhythmia (Paroxysmal atrial fibrillation), Dementia, HTN, Hypercholesterolemia, Psychiatric (Depression) and Other (BPH)
Past Surgical History: Reports Other
Social History
Unable to obtain full social history at this time due to: Dementia
Family History
Family History: Not pertinent
Allergies / Home Medications
Allergies reflects when Allergies were last updated in [facility].
Home Medications with original date entered in [facility]
Allergy/Medication List:
Allergies
Allergy/AdvReac Type Severity Reaction Status Date / Time
iodine Allergy Unknown Verified 10/21/24 14:56
Home Medications
acetaminophen 325 mg tablet (Tylenol) 650 mg PO BID pain management 12/01/23
acetaminophen 325 mg tablet (Tylenol) 650 mg PO Q4HPRN PRN mild pain 12/01/23
atorvastatin 10 mg tablet 10 mg PO HS High Cholesterol 12/01/23
bisacodyl 10 mg rectal suppository 10 mg MO DAILYPRN PRN no BM 24 hours after MOM 12/01/23
cholecalciferol (vitamin D3) 125 mcg (5,000 unit) tablet (Vitamin D3) 125 mcg PO FR Supplement 12/01/23
finasteride 5 mg tablet (Proscar) 5 mg PO DAILY prostate issues 12/01/23
magnesium hydroxide 400 mg/5 mL oral suspension (Milk of Magnesia) 2,400 mg PO [id number] PRN no BM x 3 days 12/01/23
melatonin 10 mg tablet 10 mg PO HS Sleep 12/01/23
sennosides 8.6 mg tablet (Senokot) 8.6 mg PO DAILY Constipation 12/01/23
sodium phosphates 19 gram-7 gram/118 mL enema (Fleet Enema) 118 ml MO DAILYPRN PRN no BM 24 hrs after suppository 12/01/23
apixaban 5 mg tablet (Eliquis) 5 mg PO BID #60 tabs 12/06/23
citalopram 10 mg tablet 10 mg PO DAILY Mental Health/Anxiety 05/13/24
loperamide 2 mg tablet (Imodium A-D) 2 mg PO Q4HPRN PRN diarrhea 05/13/24
therapeutic multivitamin 1 tab PO DAILY Supplement 05/13/24
trazodone 50 mg tablet 25 mg PO HS anxiety 05/13/24
amiodarone 100 mg tablet (Pacerone) 100 mg PO DAILY Arrhythmia #0 tabs 05/17/24
cyanocobalamin (vitamin B-12) 100 mcg tablet 100 mcg PO DAILY #30 tabs 05/17/24
ferrous sulfate 325 mg (65 mg iron) tablet (FeroSul) 325 mg PO BID Anemia #0 tabs 05/17/24
hydralazine 10 mg tablet 10 mg PO BID #60 tabs 05/17/24
methenamine hippurate 1 gram tablet 1 g PO BID 10/21/24
If medication reconciliation has not been performed, why?: Dementia
Review of Systems
-
Unable to obtain full review of systems at this time due to: Dementia
Physical Exam
Vital Signs
Vital Signs
Temp Pulse Resp BP Pulse Ox
98.9 F 89 17 122/94 100
10/21/24 14:51 10/21/24 17:00 10/21/24 17:00 10/21/24 17:00 10/21/24 17:00
Physical Exam
General: Slurred Speech and Appears Chronically Ill
HEENT: Other (Dry mucous membranes, poor dentition, polyp in the left nostril)
Respiratory: Clear
Cardiac: S1/S2
GI: Soft, Non Tender, Non Distended and Normal Bowel Sounds
Musculoskeletal: No Clubbing, No Cyanosis and No Edema
Skin: Warm and Dry
Neuro: Awake
Psych: Apparent Dementia
Laboratory Results
-
10/21/24 15:06
10/21/24 15:06
Laboratory Results
Total Bilirubin 0.9 mg/dl (0.2-1.3) 10/21/24 15:06
AST 20 U/L (17-59) 10/21/24 15:06
ALT 18 U/L (0-50) 10/21/24 15:06
Alkaline Phosphatase 97 U/L (38-126) 10/21/24 15:06
Data Reviewed
-
CT Scan: Report Reviewed by me and Discussed with Physician
Lab Data: Labs Reviewed by me and Discussed with Physician
Impression/Plan
-
Severe sepsis due to possible urinary tract infection
Leukocytosis
Thrombocytopenia:
- Based on previous admissions he has had urine cultures positive for Escherichia coli and Proteus mirabilis
- Meets 2 of the 4 SIRS criteria which are heart rate over 90 and WBC count over 12K (40K on admission)
- On physical examination patient has very dry mucous membranes and clammy skin
- Urine cultures were ordered which are still pending
- Blood cultures are ordered and still pending
- Initiate piperacillin tazobactam which is renally dosed
- Admit patient to the IMU
- Started patient's on normal saline
- Check CBC, CMP, lactate, PT, APTT, INR
Prerenal acute kidney injury due to suspected urinary tract infection:
- Creatinine level is 3.1, baseline is around 1.1
- Discontinue all nephrotoxic agents
- Monitor electrolytes
-Continue to observe renal function over the next 24 hours
Paroxysmal atrial fibrillation:
- Patient's EKG shows atrial fibrillation with a ventricular rate of 110
- Renally dosed Eliquis
- Continue amiodarone
- Patient's pulse is 89 and stable
Severe dementia:
- Ordered PT
- Ordered speech therapy
- Patient's baseline is unknown
- Continue trazodone
Unspecified anemia:
- Hemoglobin is 9.9
- Ordered iron panels, folate, B12
- Transfuse if hemoglobin levels are less than 7
BPH:
- Continue finasteride
Hyperlipidemia:
Continue atorvastatin
Full code
[2024-10-21 19:59] LABS: Lactic Acid 1.4 mmol/L (0.7-2.0)
[2024-10-21] MEDS: MELATONIN 10 MG PO (22:26)
[2024-10-21] MEDS: ELIQUIS 2.5 MG PO (22:26)
[2024-10-21] MEDS: FEOSOL 325 MG PO (22:27)
[2024-10-21] MEDS: APRESOLINE PO (22:27)
[2024-10-21] MEDS: LIPITOR 10 MG PO (22:28)
[2024-10-21] MEDS: TYLENOL 650 MG PO (22:28)
[2024-10-21] MEDS: DESYREL 25 MG PO (22:33)
--- NOTE | 2024-10-21 23:59 | PTCARENOTE ---
Addendum entered by Tita Ozuna RN 10/22/24 05:24:
air boots placed on pt b/l feet
Original Note:
Pt arrived from ED. Pt confused and unable to answer questions. Wounds noted on admit, consult ordered. Pt daughter updated on phone. Pt daughter told RN her fathers diet is s regular one with some help feeding. Swallow screen done, Pt passing
screening. Medication given crushed in applesauce. Goode ordered for LEE ANN. Lactic 1.4. Pt vitals stable at this time. Call bel within reach. Bed alarm on.
[2024-10-22] VITALS (16 sets, daily range): BP systolic 105–157; BP diastolic 66–91; PULSE 94; O2SAT 98; BMI 22.7
[2024-10-22] MEDS: ZOSYN 50 IV ×3 (04:56→16:59)
[2024-10-22 05:25] LABS: Hematocrit 26.7 % (39.0-52.0); Hemoglobin 9.2 g/dL (13.0-18.0); Mean Corp Hgb Conc. 34.5 g/dL (33.0-37.0); Mean Corpuscular Hgb 31.5 pg (27.0-31.0); Mean Corpuscular Volume 91.4 fL (80.0-94.0); Mean Platelet Volume 11.8 fL (7.4-10.4); Platelet Count 77 10^3/uL (130-400); Red Blood Cell Count 2.92 10^6/uL (4.70-6.10); Red Cell Dist. Width 13.9 % (11.5-14.5)
[2024-10-22 05:36] LABS: APTT 32.4 Sec (23.4-35.0); INR 2.19; PT 24.5 Sec (11.4-14.6)
[2024-10-22 05:48] LABS: ALT (SGPT) 15 U/L (0-50); AST (SGOT) 16 U/L (17-59); Albumin 2.5 g/dl (3.5-5.0); Alkaline Phosphatase 84 U/L (38-126); Blood Urea Nitrogen 83 mg/dl (9-20); Calcium 8.6 mg/dl (8.4-10.2); Carbon Dioxide 24 mmol/L (22-30); Chloride 114 mmol/L (98-107); Estimated Creatinine Clearance 27 ml/min; Glucose 130 mg/dl (70-99); Iron 26 ug/dl (49-181); Magnesium 2.3 mg/dl (1.6-2.3); Potassium 3.6 mmol/L (3.5-5.1); Sodium 147 mmol/L (135-145); Total Bilirubin 0.6 mg/dl (0.2-1.3); Total Protein 5.1 g/dl (6.3-8.2)
[2024-10-22 05:57] LABS: Percent Saturation 11 % (20-50); Total Iron Binding Capacity 218 ug/dl (261-462)
[2024-10-22 06:14] LABS: TSH 0.89 uIU/ml (0.47-4.68)
[2024-10-22 06:20] LABS: % Basophils 0.1 % (0-2); % Immature Granulocytes 0.6 % (0-0.5); % Lymphocytes 3.7 % (20.5-51.1); % Neutrophils 91.6 % (42.2-75.2); Absolute Immature Granulocytes 0.2 10^3/uL (0-0.05); Absolute Neutrophils 23.8 10^3/uL (1.4-6.5); Nucleated Red Blood Cells % 0 % (-)
[2024-10-22] MEDS: NSS 1000 IV ×2 (06:27→16:59)
[2024-10-22 06:33] LABS: Vitamin B12 808 pg/ml (239-931)
--- NOTE | 2024-10-22 08:55 | PTOTSP ---
Speech Language Pathology
Pt seen for clinical bedside swallow evaluation. P.O. trials of regular solids and thin liquids provided. Impulsive rate of intake noted with liquids. Prolonged mastication of regular solids, suspect secondary to a combination of reduced
dentition, xerostomia, and mentation. Able to clear oral cavity independently. No overt signs of aspiration.
Recommend:
(1) Initiate IDDSI Level 6 (soft/bite-sized) and thin liquids
(2) Aspiration precautions: sit upright, slow rate, full supervision with assist as needed, ensure oral cavity clear post P.O. intake
(3) Meds as tolerated
(4) PREDATORY GAME HUNTER to continue to follow
[2024-10-22] MEDS: ELIQUIS 2.5 MG PO ×2 (10:27→21:15)
[2024-10-22] MEDS: APRESOLINE 10 MG PO ×2 (10:27→21:15)
[2024-10-22] MEDS: CELEXA 10 MG PO (10:27)
[2024-10-22] MEDS: SENOKOT 8.6 MG PO (10:27)
[2024-10-22] MEDS: THERAGRAN 1 TABLET PO (10:27)
[2024-10-22] MEDS: PACERONE 100 MG PO (10:27)
[2024-10-22] MEDS: FEOSOL 325 MG PO ×2 (10:27→21:15)
[2024-10-22] MEDS: TYLENOL 650 MG PO ×2 (10:27→21:15)
[2024-10-22] MEDS: PROSCAR 5 MG PO (10:27)
[2024-10-22] MEDS: VITAMIN B-12 100 MCG PO (10:27)
--- NOTE | 2024-10-22 14:05 | WOUNDNOTE ---
WO RN note: Patient admitted with dehydration, UTI.
See H&P for complete history. From [facility].
PMH: Dementia, a fib (Eliquis), sick sinus syndrome, HTN, dysphagia, depression, anxiety, BPH and R heel PI.
Wound Location and type/assessment: Patient known to service, last seen 05/13/24 for R heel unstageable PI. Today R heel with pink base, edges quinn eschar, stage 3 PI. Waffle air boots in use for both heels, L intact. Patient turned with assist of
nurse Dalila. Patient confused and resists turning, trying to scratch nurses. Pilar rectal area with swollen hemorrhoid and darker brown tinged skin, suspect chronic related to hemorrhoids. Sacrum with scar.
Appetite: Fair. Encourage protein in diet.
Pressure redistribution devices in place: Centrella Max air bed. Air boots re applied to heels. Resists turning to L side, wants to stay on R side, lays in position.
Plan: Barrier cream for perineum daily and prn soilage. Adaptic and silicone foam dressing applied to R heel. Waffle air boots. Patient at risk for worsening or additional skin breakdown d/t overall medical condition and leg contractures.
Updated nurse Dalila on the above. Will confirm orders with hospitalist.
Care plan to be updated and will follow as needed.
Note to case management of equipment requested for discharge: Air mattress at SNF if not already in place.
Recommend follow up at wound care center upon discharge.
--- NOTE | 2024-10-22 16:07 | CM ---
Patient seen at bedside with physicians. Patient from SNF; [facility]. LTC plan for return to SNF when medically appropriate. CM will call to patient family and verified with admissions at facility. CM will continue to follow for discharge
planning needs.
Plan; SNF; return when medically appropriate.
--- NOTE | 2024-10-22 16:10 | PTCARENOTE ---
Pt's assessment as documented. Aox1, anxious and forgetful. Repeating the same statements. Afib on tele monitor. Sating 100% on RA. Goode draining yellow urine. Incontinent of bowel, binu care completed. Daughter updated via phone. Q2T maintained.
Bed alarm in place for safety.
--- NOTE | 2024-10-22 18:23 | W.PN.HOSP.TC ---
Addendum entered and electronically signed by Clarice Mcfarlane MD 10/22/24 18:54:
I saw and evaluated the patient independently. I reviewed the resident�s note and agree with findings and plan as documented by Dr. Vasques.
GENERAL: chronically ill appearing male in no apparent distress--more awake--somewhat oriented
HEENT: NC/AT--nasal polyp noted vs thickened nasal septum--dry mucus membranes
HEART: irreg irreg --rate appropriate for clinical picture
LUNGS : clear to auscultation bilaterally
ABDOM: soft, nontender, nondistended, + bowel sounds
EXT: no cyanosis, clubbing, or edema
NEUROLOGIC: apparent dementia
: woods placed in ED
Severe sepsis with leukocytosis and thrombocytopenia due to E.coli urinary tract infection and bacteremia---CXR neg--blood cultures with E. coli--agree with zosyn--IVF--follow labs--transfer to tele
acute kidney injury --likely prerenal cause from sepsis/dehydration from suspected urinary tract infection- Creatinine level is 3.1, down to 2.0, baseline is around 1.1--cont woods and IVF-renal dose meds
Paroxysmal atrial fibrillation-- Patient's EKG shows atrial fibrillation with a ventricular rate of 110- Renally dosed Eliquis- Continue amiodarone
Severe dementia--PT/OT/speech--cont citalopram, trazadone
anemia (HGB 9.9)--likely of chronic disease--no signs of active bleeding--HGB likely to drop with hydration--transfuse if less than 7
essential HTN--cont meds as able with parameters
BPH- Continue finasteride
Hyperlipidemia--Continue atorvastatin
Full code
Original Note:
Today's Communication/Plan
-
- Continue to trend CBC and CMP
Assessment / Plan
Assessment / Plan
Severe sepsis due to possible urinary tract infection
Leukocytosis
Thrombocytopenia:
- urine and blood cultures positive for Escherichia coli, continue on IV zoysn and then await sensitivities to tailor medication
- Wbc is 26 and trending down, patient is afebrile, and heart rate is normal, lactate is 1.4, patient sepsis is resolving
- Physical exam still shows dry mucous membranes, and patient is constantly asking for water
- patient is upgraded to telemetry
- Continue patient on normal saline
- Check CBC, CMP, PT, APTT, INR daily
Prerenal acute kidney injury due to suspected urinary tract infection:
- Creatinine level is 2.0, admission was 3.1
- hold all nephrotoxic agents
- Monitor electrolytes
- Continue to observe renal function
Paroxysmal atrial fibrillation:
- Patient's EKG shows atrial fibrillation with a ventricular rate of 110
- Continue Renally dosed Eliquis, creatinine level is trending down
- Continue amiodarone for both rhythm and rate control, monitor for side effects gi symptoms, QT prolongation, hypotension.
- Patient's pulse is 102 and stable, goal less than 110
Severe dementia:
- PT will follow patient 3x a week
- Speech therapy upgraded diet to soft and bite sized
- Patient's baseline is unknown
- Continue trazodone to treat agitation and insomnia seen in dementia patients
- Continue citalopram to treat concomitant depression
anemia of chronic disease:
- Hemoglobin is 9.2 and trending down from admission
- Iron is low and TIBC is low indicating anemia of chronic disease
- Transfuse if hemoglobin levels are less than 7
Essential hypertension:
- Bp is 147/70 and stable
- Continue IV hydralazine with weaning parameters of SBP>150
BPH:
- Continue finasteride
Hyperlipidemia:
Continue atorvastatin
Full code
Anticipated Discharge: 24 - 48 hours
Subjective/Interval History
-
Date of Service: October 22, 2024
Patients cognition has improved a lot today from admission yesterday but he is still not able to give a history.
Objective Data
-
Vital Signs:
Vital Signs
Temp Pulse Resp BP Pulse Ox
97.6 F 102 21 147/79 98
10/22/24 11:15 10/22/24 18:00 10/22/24 18:00 10/22/24 18:00 10/22/24 18:00
I&O
10/21/24 10/22/24 10/23/24
06:59 06:59 06:59
Intake Total 1110 / 1110 1900 / 1900
Output Total 725 / 725 225 / 225
Balance 385 / 385 1675 / 1675
Review of Systems
-
Unable to obtain full review of systems at this time due to: Dementia
History Source: Patient
All other systems: Reviewed and negative
Physical Exam
-
General: No Apparent Distress and Cachectic
HEENT: Normocephalic and Other (Poor dentition)
Respiratory: Clear to Auscultation; Negative Wheezes
Cardiac: Regular Rhythm, S1/S2 and Irregular Rhythm
GI: Soft, Nontender and Nondistended
Genito-urinary: Bloody Urine
Skin: Warm and Other
Neuro: Awake
Hematologic / Lymphatic: No Lymphadenopathy
Psych: Calm
Data Reviewed
-
Labs: Labs Reviewed by me and Discussed with Physician
Old Records: Reviewed
[2024-10-22] MEDS: MELATONIN 10 MG PO (21:16)
[2024-10-22] MEDS: DESYREL 25 MG PO (21:16)
[2024-10-22] MEDS: LIPITOR 10 MG PO (21:16)
[2024-10-23] VITALS (10 sets, daily range): BP systolic 130–167; BP diastolic 70–106; BMI 23.6
[2024-10-23] MEDS: ZOSYN 50 IV ×3 (00:25→13:29)
--- NOTE | 2024-10-23 02:48 | PTCARENOTE ---
Pt more alert this evening. Pt able to tell me name and month he was born in. Pt also knew he was not where he lives. Bed alarm on, call galeas within reach. Assessment care and vitals as charted.
[2024-10-23] MEDS: NSS 1000 IV (04:03)
[2024-10-23 04:56] LABS: Hematocrit 29.3 % (39.0-52.0); Hemoglobin 9.8 g/dL (13.0-18.0); Mean Corp Hgb Conc. 33.4 g/dL (33.0-37.0); Mean Corpuscular Hgb 31.1 pg (27.0-31.0); Mean Platelet Volume 11.7 fL (7.4-10.4); Platelet Count 96 10^3/uL (130-400); Red Blood Cell Count 3.15 10^6/uL (4.70-6.10); Red Cell Dist. Width 14.1 % (11.5-14.5); White Blood Cell Count 12.2 10^3/uL (4.8-10.8)
[2024-10-23 05:17] LABS: ALT (SGPT) 16 U/L (0-50); AST (SGOT) 17 U/L (17-59); Albumin 2.4 g/dl (3.5-5.0); Alkaline Phosphatase 72 U/L (38-126); Blood Urea Nitrogen 55 mg/dl (9-20); Carbon Dioxide 24 mmol/L (22-30); Chloride 115 mmol/L (98-107); Estimated Creatinine Clearance 46 ml/min; Glucose 102 mg/dl (70-99); Potassium 3.6 mmol/L (3.5-5.1); Sodium 145 mmol/L (135-145); Total Bilirubin 0.8 mg/dl (0.2-1.3); Total Protein 5.1 g/dl (6.3-8.2); eGFR 58.89
--- NOTE | 2024-10-23 09:10 | PTOTSP ---
Speech Language Pathology
Pt seen for dysphagia tx with breakfast tray of IDDSI Level 6 solids/thin liquids. Per RN, PCT feeding pt yesterday felt that chewing took a long time with some questionable pocketing. Seen with oatmeal, chopped pancakes, chopped peaches, and thin
liquids. Pt impulsive and required assistance with feeding. Prolonged mastication of solids noted, suspect related to a combination of mentation and dentition. Also question whether chewing pattern partially perseverative, as pt continued with
chewing pattern after swallow. Slight wet voice noted at times at rest and with P.O. intake. WBC is trending down (12.2 this date), and CXR with no acute findings this admission.
Recommend:
(1) Downgrade to IDDSI Level 5 (minced/moist) and thin liquids
(2) Aspiration precautions: full supervision with assist as needed, slow rate, ensure oral cavity clear post P.O. intake
(3) Meds as tolerated
(4) HEAD OF TALENT MANAGEMENT to continue to follow
[2024-10-23] MEDS: SENOKOT 8.6 MG PO (10:36)
[2024-10-23] MEDS: TYLENOL 650 MG PO ×2 (10:36→21:37)
[2024-10-23] MEDS: VITAMIN B-12 100 MCG PO (10:36)
[2024-10-23] MEDS: THERAGRAN 1 TABLET PO (10:36)
[2024-10-23] MEDS: PACERONE 100 MG PO (10:36)
[2024-10-23] MEDS: CELEXA 10 MG PO (10:36)
[2024-10-23] MEDS: ELIQUIS 2.5 MG PO (10:36)
[2024-10-23] MEDS: APRESOLINE 10 MG PO ×2 (10:36→21:37)
[2024-10-23] MEDS: FEOSOL 325 MG PO ×2 (10:37→21:37)
[2024-10-23] MEDS: PROSCAR 5 MG PO (10:37)
--- NOTE | 2024-10-23 14:22 | W.PN.HOSP.TC ---
Addendum entered and electronically signed by Clarice Mcfarlane MD 10/23/24 17:17:
I saw and evaluated the patient independently. I reviewed the resident�s note and agree with findings and plan as documented by Dr. Vasques.
GENERAL: chronically ill appearing male in no apparent distress--more awake--somewhat oriented
HEENT: NC/AT--nasal polyp noted vs thickened nasal septum
HEART: irreg irreg
LUNGS : clear to auscultation bilaterally
ABDOM: soft, nontender, nondistended, + bowel sounds
EXT: no cyanosis, clubbing, or edema
NEUROLOGIC: apparent dementia
: woods placed in ED
Severe sepsis with leukocytosis and thrombocytopenia due to E.coli urinary tract infection and bacteremia---CXR neg--blood cultures with E. coli and 1 also with coag neg staph (contaminant)-- zosyn to ancef--stop IVF--follow labs--repeat blood
cultures to assure clearance
acute kidney injury --likely prerenal cause from sepsis/dehydration from suspected urinary tract infection- Creatinine level is 3.1, down to 1.2, baseline is around 1.1--d/c woods and IVF
Paroxysmal atrial fibrillation-- Patient's EKG shows atrial fibrillation-- Eliquis- Continue amiodarone
Severe dementia--PT/OT/speech--cont citalopram, trazadone
anemia (HGB 9.9)--likely of chronic disease--no signs of active bleeding----transfuse if less than 7
essential HTN--cont meds as able with parameters
BPH- Continue finasteride
Hyperlipidemia--Continue atorvastatin
Full code
Original Note:
Today's Communication/Plan
-
- Patient will be discharged to [facility]
Assessment / Plan
Assessment / Plan
Severe sepsis due to possible urinary tract infection
Leukocytosis
Thrombocytopenia:
- urine and blood cultures positive for Escherichia coli, change to IV cefazolin, then oral cefazolin on discharge as culture sensitivities show this best choice of antibacterial
- Wbc is 12.2 and trending down, patient is afebrile, and heart rate is normal, lactate is 1.4, patient sepsis is resolving
- Physical exam still shows dry mucous membranes, and patient is constantly asking for water
- Continue patient on normal saline because it is ideal for perfusion and restoring intravascular volume
- Check CBC, CMP daily
Prerenal acute kidney injury due to suspected urinary tract infection:
- Creatinine level is 1.2, admission was 3.1
- Monitor electrolytes
- Continue to observe renal function
Paroxysmal atrial fibrillation:
- Patient's EKG shows atrial fibrillation with a ventricular rate of 110
- Patient's pulse is 96 and stable, goal less than 110
- patient on telemetry, was in atrial fibrillation overnight, continue to monitor
- Continue Eliquis 5 mg original dose, as creatinine is now 1.2 no need to renally dose anymore
- Continue amiodarone for both rhythm and rate control, monitor for side effects gi symptoms, QT prolongation, hypotension.
Severe dementia:
- PT will follow patient 3x a week
- Speech therapy upgraded to IDDSI 5
- Patient's baseline is unknown
- Continue trazodone to treat agitation and insomnia seen in dementia patients
- Continue citalopram to treat concomitant depression
anemia of chronic disease:
- Hemoglobin is 9.2 and trending down from admission
- Iron is low and TIBC is low indicating anemia of chronic disease
- Transfuse if hemoglobin levels are less than 7
Essential hypertension:
- Bp is 162/86 and stable.
- Added norvasc 5 mg as its a first line medication in elderly people and doesn't affect heart rate/contractility
- Continue IV hydralazine with weaning parameters of SBP>150 as needed
BPH:
- Continue finasteride
Hyperlipidemia:
Continue atorvastatin
Discontinued Woods's catheter and will do a voiding trial
Full code
Eliquis 5 mg bid
Anticipated Discharge: 24 - 48 hours
Subjective/Interval History
-
Date of Service: October 23, 2024
Patients cognition has improved a lot today from admission yesterday but he is still not able to give a history.
Objective Data
-
Labs:
Laboratory Results
10/23/24
04:27
WBC 12.2 H
Hgb 9.8 L
Hct 29.3 L
Plt Count 96 L D
Sodium 145
Potassium 3.6
Chloride 115 H
Carbon Dioxide 24
BUN 55 H
Creatinine 1.2
Glucose 102 H
Calcium 8.0 L
Total Bilirubin 0.8
AST 17
ALT 16
Alkaline Phosphatase 72
Vital Signs:
Vital Signs
Temp Pulse Resp BP Pulse Ox
97.6 F 96 18 148/90 99
10/23/24 11:35 10/23/24 12:01 10/23/24 12:01 10/23/24 12:01 10/23/24 12:01
I&O
10/22/24 10/23/24 10/24/24
06:59 06:59 06:59
Intake Total 1110 / 1110 1900 / 1900 240 / 240
Output Total 725 / 725 1225 / 1225 600 / 600
Balance 385 / 385 675 / 675 -360 / -360
Review of Systems
-
Unable to obtain full review of systems at this time due to: Dementia
History Source: Patient
All other systems: Reviewed and negative
Physical Exam
-
General: No Apparent Distress and Cachectic
HEENT: Normocephalic and Other (Poor dentition)
Respiratory: Clear to Auscultation; Negative Wheezes
Cardiac: Regular Rhythm, S1/S2 and Irregular Rhythm
GI: Soft, Nontender and Nondistended
Genito-urinary: Bloody Urine and Woods
Skin: Warm and Other
Neuro: Awake
Hematologic / Lymphatic: No Lymphadenopathy
Psych: Calm
--- NOTE | 2024-10-23 15:41 | CM ---
Patient seen at bedside with physicians. Patient plan is to return to [facility] pending treatment plan. CM will continue to follow for discharge planning needs.
Plan; SNF
--- NOTE | 2024-10-23 15:42 | PTCARENOTE ---
Report to receiving RN. Pt transferred to 324.
[2024-10-23] MEDS: ANCEF 5 IV ×2 (15:51→23:51)
--- NOTE | 2024-10-23 17:18 | PTCARENOTE ---
Received pt from IMU, pulled over to bed. Confused, states he is scared, emotional support provided. BCx2 sent as ordered, Russel chu'd per order, due to void at 2200.
[2024-10-23] MEDS: ELIQUIS 5 MG PO (21:37)
[2024-10-23] MEDS: DESYREL 25 MG PO (21:41)
[2024-10-23] MEDS: MELATONIN 10 MG PO (21:41)
[2024-10-23] MEDS: LIPITOR 10 MG PO (21:41)
[2024-10-24 03:57] VITALS: BP 128/82
[2024-10-24 06:42] VITALS: BMI 23.7
[2024-10-24 07:34] LABS: Hematocrit 27.9 % (39.0-52.0); Hemoglobin 9.1 g/dL (13.0-18.0); Mean Corp Hgb Conc. 32.6 g/dL (33.0-37.0); Mean Corpuscular Hgb 30.7 pg (27.0-31.0); Mean Corpuscular Volume 94.3 fL (80.0-94.0); Platelet Count 112 10^3/uL (130-400); Red Blood Cell Count 2.96 10^6/uL (4.70-6.10)
[2024-10-24 07:37] LABS: Blood Urea Nitrogen 39 mg/dl (9-20); Calcium 8.1 mg/dl (8.4-10.2); Carbon Dioxide 26 mmol/L (22-30); Chloride 112 mmol/L (98-107); Estimated Creatinine Clearance 50 ml/min; Glucose 106 mg/dl (70-99); Potassium 3.9 mmol/L (3.5-5.1); Sodium 144 mmol/L (135-145); eGFR > 60.00
[2024-10-24 07:52] VITALS: BP 159/69
[2024-10-24] MEDS: ANCEF 5 IV ×3 (08:45→23:39)
[2024-10-24] MEDS: TYLENOL 650 MG PO ×2 (08:45→21:52)
[2024-10-24] MEDS: ELIQUIS 5 MG PO ×2 (08:45→21:53)
[2024-10-24] MEDS: SENOKOT 8.6 MG PO (08:46)
[2024-10-24] MEDS: PROSCAR 5 MG PO (08:46)
[2024-10-24] MEDS: FEOSOL 325 MG PO ×2 (08:46→21:55)
[2024-10-24] MEDS: APRESOLINE 10 MG PO ×2 (08:46→21:53)
[2024-10-24] MEDS: NORVASC 5 MG PO (08:46)
[2024-10-24] MEDS: VITAMIN B-12 100 MCG PO (08:46)
[2024-10-24] MEDS: PACERONE 100 MG PO (08:46)
[2024-10-24] MEDS: THERAGRAN 1 TABLET PO (08:46)
[2024-10-24] MEDS: CELEXA 10 MG PO (08:46)
--- NOTE | 2024-10-24 09:30 | WOUNDNOTE ---
WOC RN note: Spoke with 3W RN Lisa who will apply an air overlay mattress or call the bed tech for an air mattress for patient.
--- NOTE | 2024-10-24 10:23 | PN.CDI ---
CDI
- -
CDI:
Physician Documentation Request
Admit Date: 10/21/24 19:48
Dear Doctor,
Please review the following and provide your response in the progress notes.
Clinical Indicators:
Pt admitted with Severe sepsis with leukocytosis and thrombocytopenia due to E.coli urinary tract infection and bacteremia and LEE ANN.
10/22 WOC RN: 'Today R heel with pink base, edges quinn eschar, stage 3 PI.'
Physician documentation of the type and location of wounds is required for compliant documentation. Based on the above clinical findings and your assessment, please provide the following in your progress note:
1. Location of the ulcer/wound, including laterality.
2. Type (etiology) of ulcer/wound:
Right heel pressure injury POA
Right heel non-pressure injury POA
Other
Use of terms such as suspected, likely, concern for, or probable (associated with a specific diagnosis that is being evaluated, monitored, or treated as if it exists) are acceptable and can be coded in the inpatient setting, when documented at the
time of discharge.
Thank you,
Virgie Adams RN, BSN
CDI Specialist
[place] [facility]
Please use your independent medical judgment in providing your response.
*Source: National Pressure Ulcer Advisory Panel (NPUAP)
[2024-10-24 11:00] VITALS: BP 132/64
--- NOTE | 2024-10-24 11:47 | PTOTSP ---
Chart reviewed. 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 There are no skilled PT needs or goals. Will sign off.
--- NOTE | 2024-10-24 12:07 | W.PN.HOSP.TC ---
Addendum entered and electronically signed by Clarice Mcfarlane MD 10/24/24 14:58:
I saw and evaluated the patient independently. I reviewed the resident�s note and agree with findings and plan as documented by Dr. Vasques.
GENERAL: chronically ill appearing male in no apparent distress--more awake--somewhat oriented
HEENT: NC/AT--nasal polyp noted vs thickened nasal septum
HEART: irreg irreg
LUNGS : clear to auscultation bilaterally
ABDOM: soft, nontender, nondistended, + bowel sounds
EXT: no cyanosis, clubbing, or edema
NEUROLOGIC: apparent dementia
: woods removed
Severe sepsis with leukocytosis and thrombocytopenia due to E.coli urinary tract infection and bacteremia---CXR neg--blood cultures with E. coli and 1 also with coag neg staph (contaminant)-- zosyn to ancef to oral Keflex at d/c--waiting to see
repeat blood culture results--stop IVF--follow labs
acute kidney injury --likely prerenal cause from sepsis/dehydration from suspected urinary tract infection- Creatinine level is 3.1, down to 1.2, baseline is around 1.1--d/c woods and IVF
acute urinary retention--s/p woods in ED--woods removed and needing st cath--on proscar--consider adding flomax
Paroxysmal atrial fibrillation-- Patient's EKG shows atrial fibrillation-- Eliquis- Continue amiodarone
Severe dementia--PT/OT/speech--cont citalopram, trazadone
anemia (HGB 9.9)--likely of chronic disease--no signs of active bleeding----transfuse if less than 7
essential HTN--cont meds as able with parameters
BPH- Continue finasteride
Hyperlipidemia--Continue atorvastatin
wound--POA--right heel stage 3 pressure injury
Full code
Original Note:
Today's Communication/Plan
-
- awaiting blood cultures
Assessment / Plan
Assessment / Plan
Severe sepsis due to possible urinary tract infection
Leukocytosis (resolved)
Thrombocytopenia:
- Blood cultures are still pending
- urine and blood cultures positive for Escherichia coli, change to IV cefazolin, then oral cefazolin on discharge as culture sensitivities show this best choice of antibacterial
- Wbc is 10 and trending down, patient is afebrile, and heart rate is normal, lactate is 1.4, patient sepsis is resolved
- Physical exam still shows dry mucous membranes, and patient is constantly asking for water
- Continue patient on normal saline because it is ideal for perfusion and restoring intravascular volume
- Check CBC, CMP daily
Prerenal acute kidney injury due to suspected urinary tract infection:
- Creatinine level is 1.2, admission was 3.1
- Monitor electrolytes
- Continue to observe renal function
Paroxysmal atrial fibrillation:
- Patient's EKG shows atrial fibrillation with a ventricular rate of 110
- Patient's pulse is 50 and stable, goal less than 110
- patient on telemetry, was in atrial fibrillation overnight, continue to monitor
- Continue Eliquis 5 mg original dose, as creatinine is now 1.1 no need to renally dose anymore
- Continue amiodarone for both rhythm and rate control, monitor for side effects gi symptoms, QT prolongation, hypotension.
Severe dementia:
- PT will follow patient 3x a week
- Speech therapy upgraded to IDDSI 5
- Patient's baseline is unknown
- Continue trazodone to treat agitation and insomnia seen in dementia patients
- Continue citalopram to treat concomitant depression
anemia of chronic disease:
- Hemoglobin is 9.1 and trending down from admission
- Iron is low and TIBC is low indicating anemia of chronic disease
- Transfuse if hemoglobin levels are less than 7
Essential hypertension:
- Bp is 132/64 and stable.
- Added norvasc 5 mg as its a first line medication in elderly people and doesn't affect heart rate/contractility
- Continue IV hydralazine with weaning parameters of SBP>150 as needed
BPH:
- Continue finasteride
Hyperlipidemia:
Continue atorvastatin
Discontinued Woods's catheter and will do a voiding trial
Full code
Eliquis 5 mg bid
Anticipated Discharge: Within 24 hours
Subjective/Interval History
-
Date of Service: October 24, 2024
Patients cognition has improved a lot today from admission yesterday but he is still not able to give a history.
Objective Data
-
Labs:
Laboratory Results
10/24/24
06:07
WBC 10.0
Hgb 9.1 L
Hct 27.9 L
Plt Count 112 L
Sodium 144
Potassium 3.9
Chloride 112 H
Carbon Dioxide 26
BUN 39 H
Creatinine 1.1
Glucose 106 H
Calcium 8.1 L
Vital Signs:
Vital Signs
Temp Pulse Resp BP Pulse Ox
97.4 F 50 18 132/64 98
10/24/24 11:00 10/24/24 11:00 10/24/24 11:00 10/24/24 11:00 10/24/24 11:00
I&O
10/23/24 10/24/24 10/25/24
06:59 06:59 06:59
Intake Total 1900 / 1900 480 / 480
Output Total 1225 / 1225 1700 / 1700
Balance 675 / 675 -1220 / -1220
Review of Systems
-
Unable to obtain full review of systems at this time due to: Dementia
History Source: Patient
All other systems: Reviewed and negative
Physical Exam
-
General: No Apparent Distress and Cachectic
HEENT: Normocephalic and Other (Poor dentition)
Respiratory: Clear to Auscultation; Negative Wheezes
Cardiac: S1/S2 and Irregular Rhythm
GI: Soft, Nontender and Nondistended
Skin: Warm
Neuro: Awake
Hematologic / Lymphatic: No Lymphadenopathy
Psych: Calm
Data Reviewed
-
Labs: Labs Reviewed by me and Discussed with Physician
Old Records: Reviewed
--- NOTE | 2024-10-24 14:42 | CM ---
Addendum entered by Adore Jimenez 10/24/24 14:52:
Patient son, asking about prevention of UTI and use of diapers at the residential. CM requested physician to call and review with patient son concerns. CM will send IMM via email to [email or web address] at son request.
Original Note:
Patient seen at bedside with physicians. Patient for return to SNF; please call report to [phone]/fax [phone]. Patient will need ambulance transport, CM will complete transportation forms. CM will continue to follow for discharge planning
needs.
Plan; return to SNF.
[2024-10-24 15:18] VITALS: BP 172/81
[2024-10-24 17:00] VITALS: BP 179/70
[2024-10-24] MEDS: APRESOLINE 5 MG IV (18:08)
--- NOTE | 2024-10-24 20:08 | W.PN.UPDATE ---
Update Note
Progress Note Update
- Called patients son and spoke about the causes/ prevention of UTI's in elderly patients with cognitive decline and/or dementia.
[2024-10-24 20:17] VITALS: BP 171/71
[2024-10-24] MEDS: LIPITOR 10 MG PO (21:52)
[2024-10-24] MEDS: DESYREL 25 MG PO (21:52)
[2024-10-24] MEDS: MELATONIN 10 MG PO (21:53)
[2024-10-25 01:33] VITALS: BP 160/64
[2024-10-25 04:13] VITALS: BP 179/78
[2024-10-25 06:00] VITALS: BMI 24.2
[2024-10-25 07:47] VITALS: BP 188/81
[2024-10-25] MEDS: PACERONE 100 MG PO (08:10)
[2024-10-25] MEDS: ELIQUIS 5 MG PO (08:11)
[2024-10-25] MEDS: APRESOLINE 10 MG PO (08:11)
[2024-10-25] MEDS: NORVASC 5 MG PO (08:12)
[2024-10-25] MEDS: TYLENOL PO (08:20)
[2024-10-25] MEDS: VITAMIN B-12 PO (08:20)
[2024-10-25] MEDS: CELEXA PO (08:20)
[2024-10-25] MEDS: FEOSOL PO (08:20)
[2024-10-25] MEDS: SENOKOT PO (08:20)
[2024-10-25] MEDS: PROSCAR PO (08:20)
[2024-10-25] MEDS: THERAGRAN PO (08:20)
[2024-10-25] MEDS: ANCEF 5 IV (10:02)
--- NOTE | 2024-10-25 10:38 | CM ---
Patient for return to SNF; please call report to [phone]/fax [phone]. Patient will need ambulance transport, CM completed transportation forms. Patient son notified yesterday of plan for transfer back to SNF. CM will continue to follow for
discharge planning needs.
Plan; return to SNF
[2024-10-25 11:11] VITALS: BP 162/71
[2024-10-25 15:40] VITALS: BP 197/86
--- NOTE | 2024-10-25 16:00 | PTCARENOTE ---
Attempted to call report, phone number in CM note was for [facility], not [facility]. CM notified via tiger text. Phone number for [facility] provided. Attempted to call report to this phone number [phone] with no success.
--- NOTE | 2024-10-25 17:24 | W.PN.HOSP.TC ---
Addendum entered and electronically signed by Clarice Mcfarlane MD 10/25/24 17:42:
I saw and evaluated the patient independently. I reviewed the resident�s note and agree with findings and plan as documented by Dr. Vasques.
GENERAL: chronically ill appearing male in no apparent distress--more awake--somewhat oriented
HEENT: NC/AT--nasal polyp noted vs thickened nasal septum
HEART: irreg irreg
LUNGS : clear to auscultation bilaterally
ABDOM: soft, nontender, nondistended, + bowel sounds
EXT: no cyanosis, clubbing, or edema
NEUROLOGIC: apparent dementia
: woods removed
Severe sepsis with leukocytosis and thrombocytopenia due to E.coli urinary tract infection and bacteremia---CXR neg--blood cultures with E. coli and 1 also with coag neg staph (contaminant)-- zosyn to ancef to oral Keflex at d/c-- repeat blood
cultures neg--stop IVF--follow labs
acute kidney injury --likely prerenal cause from sepsis/dehydration from suspected urinary tract infection- Creatinine level is 3.1, down to 1.2, baseline is around 1.1--d/c woods and IVF
acute urinary retention--s/p woods in ED--woods removed and needing st cath--on proscar--added flomax--woods needed to be replaced prior to d/c for urinary retention again
Paroxysmal atrial fibrillation-- Patient's EKG shows atrial fibrillation-- Eliquis- Continue amiodarone
Severe dementia--PT/OT/speech--cont citalopram, trazadone
anemia (HGB 9.9)--likely of chronic disease--no signs of active bleeding----transfuse if less than 7
essential HTN--cont meds as able with parameters
BPH- Continue finasteride
Hyperlipidemia--Continue atorvastatin
wound--POA--right heel stage 3 pressure injury
Full code
OK for d/c
Original Note:
Today's Communication/Plan
-
- Patient discharged back to [facility]
Assessment / Plan
Assessment / Plan
Severe sepsis due to possible urinary tract infection
Leukocytosis (resolved)
Thrombocytopenia:
- Blood cultures are negative
- urine and blood cultures positive for Escherichia coli, change IV cefazolin to oral cephalexin on discharge as culture sensitivities show this best choice of antibacterial
- Wbc is 10 and trending down, patient is afebrile, and heart rate is normal, lactate is 1.4, patient sepsis is resolved
- Check CBC, CMP with PCP outpatient
Prerenal acute kidney injury due to suspected urinary tract infection:
- Creatinine level is 1.2, admission was 3.1
- Monitor electrolytes
- Continue to observe renal function
Paroxysmal atrial fibrillation:
- Patient's pulse is 58 and stable, goal less than 110
- patient on telemetry, was in atrial fibrillation overnight, continue to monitor
- Continue Eliquis 5 mg original dose, as creatinine is now 1.1 no need to renally dose anymore
- Continue amiodarone for both rhythm and rate control, monitor for side effects gi symptoms, QT prolongation, hypotension.
Severe dementia:
- PT will follow patient 3x a week
- Speech therapy upgraded to IDDSI 5
- Patient's baseline is unknown
- Continue trazodone to treat agitation and insomnia seen in dementia patients
- Continue citalopram to treat concomitant depression
anemia of chronic disease:
- Hemoglobin is 9.1 and trending down from admission
- Iron is low and TIBC is low indicating anemia of chronic disease
- Transfuse if hemoglobin levels are less than 7
Essential hypertension:
- Bp is 132/64 and stable.
- Added norvasc 5 mg as its a first line medication in elderly people and doesn't affect heart rate/contractility. continue on discharge.
BPH:
- Continue finasteride
- Added flomax 0.4 to help acute urinary retention
Hyperlipidemia:
Continue atorvastatin
Discontinued Woods's catheter and will do a voiding trial
Full code
Eliquis 5 mg bid
Anticipated Discharge: Today
Subjective/Interval History
-
Date of Service: October 25, 2024
Patients cognition has improved a lot today from admission yesterday but he is still not able to give a history.
Objective Data
-
Labs:
Laboratory Results
10/25/24
06:00
WBC Cancelled
Hgb Cancelled
Hct Cancelled
Plt Count Cancelled
Sodium Cancelled
Potassium Cancelled
Chloride Cancelled
Carbon Dioxide Cancelled
BUN Cancelled
Creatinine Cancelled
Glucose Cancelled
Calcium Cancelled
Vital Signs:
Vital Signs
Temp Pulse Resp BP Pulse Ox
98.5 F 58 17 197/86 95
10/25/24 15:40 10/25/24 15:40 10/25/24 15:40 10/25/24 15:40 10/25/24 15:40
I&O
10/24/24 10/25/24 10/26/24
06:59 06:59 06:59
Intake Total 480 / 480 180 / 180
Output Total 1700 / 1700 1600 / 1600
Balance -1220 / -1220 -1420 / -1420
Review of Systems
-
Unable to obtain full review of systems at this time due to: Dementia
History Source: Patient
All other systems: Reviewed and negative
Physical Exam
-
General: No Apparent Distress and Cachectic
HEENT: Normocephalic and Other (Poor dentition)
Respiratory: Clear to Auscultation
Cardiac: S1/S2 and Irregular Rhythm
GI: Soft, Nontender and Nondistended
Skin: Warm
Neuro: Awake
Hematologic / Lymphatic: No Lymphadenopathy
Psych: Calm
Data Reviewed
-
Labs: Labs Reviewed by me and Discussed with Physician
Old Records: Reviewed
--- NOTE | 2024-10-25 18:34 | W.DCSUMMARY ---
Addendum entered and electronically signed by Clarice Mcfarlane MD 10/26/24 07:09:
Read, reviewed, and agree. See same day progress note for additional details. Time spent coordinating care, DC planning, review of DC plan of care with resident, transition of care, review of records in EMR, med rec, consults, notes, d/w
consultants, nursing, family, and CM = 32 minutes
Original Note:
Discharge Summary
Discharge Data
Date of Admission: 10/21/24
Date of Discharge: 10/25/24
-
Pending Results: No
Hospital Course
Discharging Physician : Dr. Clarice Mcfarlane and Dr. Teodoro Vasques
Disposition : SNF
Primary care physician : Dr. Hansen
Principal Discharge diagnosis : Severe sepsis with leukocytosis and thrombocytopenia due to E. coli urinary tract infection bacteremia, acute kidney injury, acute urinary retention
Chronic Discharge diagnosis : Paroxysmal atrial fibrillation, severe dementia, anemia of chronic disease, essential hypertension, BPH, hyperlipidemia, right heel stage III pressure injury
Hospital Course : Patient is a 84-year-old male, full code with a past medical history of arrhythmia, hypertension, dementia, BPH, oropharyngeal dysphagia presents from a halfway after one of the aides noticed that he looked lethargic and very
dry. Patient has severe dementia and is unable to provide an accurate history.
Problem #1: Severe sepsis with leukocytosis and thrombocytopenia due to possible urinary tract infection---had previous admissions to [facility] with urine cultures positive for Escherichia coli and Proteus mirabilis. On admission meets 2
of the 4 SIRS criteria which are heart rate over 90 and WBC count over 12K (it was 40k on admission). Physical examination showed very dry mucous membranes and clammy skin. Patient was started on empiric IV Zosyn. Both micro urine specimens and
blood specimens were positive for Escherichia coli. Patient was then transition to IV Ancef on 10/23/24. Repeat blood cultures were negative. WBC on discharge was 10, patient was afebrile, vitals were stable. Patient was then transition to oral
cephalexin for 10 days on discharge.
Problem #2: Prerenal acute kidney injury due to urinary tract infection---on admission creatinine level is 3.1 and on discharge creatinine level was 1.1 and normalized. Was started on intravenous fluids. His Eliquis which was 5 Mg p.o. daily was
renally dosed to 2.5 and then converted back to normal dose once creatinine normalized. All nephrotoxic agents were discontinued. On discharge resume all blood pressure medications.
Problem #3: Paroxysmal atrial fibrillation---EKG showed atrial fibrillation with rapid ventricular response on 10/21/2024. Eliquis is renally dosed then converted back to full dose after creatinine normalized and amiodarone was continued.
Problem #4: Acute urinary retention/benign prostatic hyperplasia---Patient had a Goode's catheter placed at [facility]. the Goode's catheter was later removed and straight cath was initiated, however after 24 hours patient could not produce any
urine at the time of discharge. So we placed Goode catheter again in the patient for acute urinary retention and discharged him. He has a history of benign prostatic hyperplasia and is taking finasteride. Also added Flomax on discharge to help
both his benign prostatic hyperplasia and acute urinary retention. CMP in 1 week with PCP.
Problem #5: Severe dementia---throughout the course of his hospital stay patient was unable to provide a history and was awake and alert but not oriented to time place or person. Patient was evaluated by physical therapy and they stated that there
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 Speech therapy saw him and suggested IDDSI level 5 diet which he was discharged with , aspiration precautions, meds as
tolerated. Continue on at home citalopram and trazodone.
Problem #6: Essential hypertension---continue Norvasc 5 Mg p.o. which was added in hospital stay due to hypertension once daily on discharge.
Problem #7: Anemia of chronic disease---hemoglobin is 9.1, on admission 9.9. There are no signs of active bleeding, transfuse if less than 7. CBC in 1 week with primary care provider
Problem #8: Hyperlipidemia---continue atorvastatin
Important imaging findings :
10/21/2024 chest x-ray:
IMPRESSION:
No acute cardiopulmonary process.
Abdominal pelvis CT 10/21/2024:
IMPRESSION:
1. No significant acute abnormality identified in the abdomen or pelvis, within the limits of unenhanced CT, as described above. Chronic changes as described.
Procedure findings :
Discharge Plan
-
Patient Disposition: Jail/SNF
Discharge Diagnosis/Procedures: Severe sepsis with leukocytosis and thrombocytopenia due to E. coli urinary tract infection bacteremia, prerenal acute kidney injury, acute urinary retention, paroxysmal atrial fibrillation, severe dementia, anemia,
essential hypertension, BPH, hyperlipidemia, stage III pressure injury on the right heel
Condition: Fair
Diet: Other diet
Additional Diets: IDDSI 5- minced and moist
Activity: As tolerated
Driving Restrictions: No driving
Bathing Restrictions: None
Blood Work: CBC in 1 week with PCP
CMP in 1 week with PCP
Activity Restrictions/Additional Instructions:
Wound Care Instructions
Pilar rectal area: clean with soap and water Barrier cream daily and prn soilage.
R heel: clean with saline, Adaptic and dry dressing change daily and prn drainage.
Waffle air boots both heels
air mattress with turning schedule
waffle air boots
Follow up at wound care center call for an appointment.
Discharging patient with Goode catheter. Tried to straight cath patient multiple times over 24 hours, but was unable to produce any urine.
Referrals:
Wilfrid Hansen I., DO [Family Provider] - in less than 1 week
Additional Discharge Medication Instructions: Added amlodipine 5 mg PO once a day for hypertension
Transitioned patient from IV ancef to oral cephalexin 500 mg four times a day PO to be taken for 12 days.
Added Flomax (Tamsulosin) 0.4mg to be taken once a day PO to help patient urinate.
Prescriptions:
New
amlodipine 5 mg Tablet
5 mg PO DAILY Qty: 30 0RF
tamsulosin [Flomax] 0.4 mg capsule
0.4 mg PO DAILY 30 Days Qty: 30 0RF
cephalexin 500 mg capsule
500 mg PO QID 10 Days Qty: 48 0RF
Continued
sennosides [Senokot] 8.6 mg Tablet
8.6 mg PO DAILY
acetaminophen [Tylenol] 325 mg Tablet
650 mg PO Q4HPRN PRN (Reason: mild pain)
acetaminophen [Tylenol] 325 mg Tablet
650 mg PO BID
atorvastatin 10 mg Tablet
10 mg PO HS
magnesium hydroxide [Milk of Magnesia] 400 mg/5 mL Suspension
2,400 mg PO [id number] PRN (Reason: no BM x 3 days)
Fleet Enema 19-7 gram/118 mL Enema
118 ml WA DAILYPRN PRN (Reason: no BM 24 hrs after suppository)
finasteride [Proscar] 5 mg Tablet
5 mg PO DAILY
cholecalciferol (vitamin D3) [Vitamin D3] 125 mcg (5,000 unit) Tablet
125 mcg PO FR
melatonin 10 mg Tablet
10 mg PO HS
Eliquis 5 mg Tablet
5 mg PO BID Qty: 60 0RF
trazodone 50 mg Tablet
25 mg PO HS
citalopram 10 mg Tablet
10 mg PO DAILY
loperamide [Imodium A-D] 2 mg Tablet
2 mg PO Q4HPRN PRN (Reason: diarrhea)
therapeutic multivitamin Tablet
1 tab PO DAILY
ferrous sulfate [FeroSul] 325 mg (65 mg iron) Tablet
325 mg PO BID Qty: 0 0RF
amiodarone [Pacerone] 100 mg Tablet
100 mg PO DAILY Qty: 0 0RF
cyanocobalamin (vitamin B-12) 100 mcg tablet
100 mcg PO DAILY Qty: 30 0RF
hydralazine 10 mg tablet
10 mg PO BID Qty: 60 0RF
Rx Instructions:
hold for SBP < 110
Discontinued
bisacodyl 10 mg Suppository
10 mg WA DAILYPRN PRN (Reason: no BM 24 hours after MOM)
methenamine hippurate [Hiprex] 1 gram Tablet
1 g PO BID
Discharge Orders:
Discharge Patient (As Directed); Ordered 10/25/24
Ordered By: Teodoro Vasques
Discharge Date and Time
Discharge Date/Time: 10/25/24 15:48
Print Language: BULGARIAN
== END 2024-10-25 15:48 | DRG 871 ==
LOC: 3 WEST ACU 19:48
PROVIDERS: Student in an Organized Health Care Education/Training Program; ADMITTING PHYSICIAN Internal Medicine; EMERGENCY PHYSICIAN Emergency Medicine; FAMILY PHYSICIAN Internal Medicine
DX: A41.9 Sepsis, unspecified organism (principal); L89.613 Pressure ulcer of right heel, stage 3; N17.9 Acute kidney failure, unspecified; N39.0 Urinary tract infection, site not specified; R64 Cachexia; E86.0 Dehydration; I10 Essential (primary) hypertension; I48.0 Paroxysmal atrial fibrillation; F03.C0 Unspecified dementia, severe, without behavioral disturbance, psychotic disturbance, mood disturbance, and anxiety; E78.00 Pure hypercholesterolemia, unspecified; N40.1 Benign prostatic hyperplasia with lower urinary tract symptoms; D63.8 Anemia in other chronic diseases classified elsewhere; R65.20 Severe sepsis without septic shock; D69.59 Other secondary thrombocytopenia; Z79.01 Long term (current) use of anticoagulants; Z68.24 Body mass index [BMI] 24.0-24.9, adult
CPT/HCPCS: 51702; 71046; 74176; 80048; 80053; 81003; 81015; 82607; 82728; 83540; 83550; 83605; 83735; 84443; 85025; 85027; 85610; 85730; 87040; 87070; 87077; 87086; 87149; 87150; 87186; 87205; 92526; 92610; 93005; 96360; 97163; 99291